=== PATIENT | female | born 1985 | race Two or more races ===

== ENCOUNTER 2017-07-16 13:01 | Emergency (ER) | payer OTHER ==
[2017-07-16 13:33] LABS: MUDS CUTOFF CONCENTRATIONS CUTOFF CONC BELOW:
--- NOTE | 2017-07-16 13:45 | ED Physician Documentation ---
PD HPI MHE - Stated complaint Stated Complaint: SI - Chief complaint Chief Complaint: MHE - History obtained from History obtained from: Patient - History of Present Illness Primary symptom: Suicide attempt, Self harm - OD, Off meds, Medical clearance Timing - onset: How many days ago (4) Contributing factors: Family, Off meds Similar symptoms before: Diagnosis (depression) Recently seen: Clinic (today) - Additional information Additional information: This 32 year old female with a prior history of depression and suicidal ideation took about 20 ibuprofen pills 4 days ago in a suicide attempt. She indicates that her is left on deployment and she was having an argument with her mother and the mother was telling her she was not a good daughter and she felt suicidal. She states that she is no longer actively suicidal but she has had hospitalization previously for suicide attempt and this was helpful for her. She indicates that her depression stems from a stillborn several years ago while her was on deployment. Her is on deployment again and will return in about 2 weeks. She has no other support here in [place] she has moved here in February and she does not have friends here. She does indicate that she has previously had a therapist that was very helpful and since moving here she has not been able to establish a therapist. Review of Systems Constitutional: reports: Chills. denies: Fever Eyes: denies: Decreased vision Ears: denies: Ear pain Nose: denies: Congestion Throat: denies: Sore throat Cardiac: denies: Chest pain / pressure, Palpitations Respiratory: denies: Dyspnea, Cough GI: reports: Abdominal Pain. denies: Nausea, Vomiting, Constipation, Diarrhea : denies: Dysuria, Frequency Skin: denies: Rash Musculoskeletal: denies: Neck pain, Back pain, Extremity pain PD PAST MEDICAL HISTORY - Present Medications Home Medications: Ambulatory Orders Medication Instructions Recorded Confirmed Bupropion HCl [Wellbutrin Xl] 07/16/17 Fluticasone [Flonase] 07/16/17 Folic Acid 07/16/17 Levothyroxine Sodium [Synthroid] 07/16/17 Naproxen Sodium 07/16/17 Ondansetron Odt [Zofran] 4 mg TL Q6H PRN #10 tablet 07/16/17 Sertraline HCl [Zoloft] 07/16/17 07/16/17 Sucralfate [Carafate] 1 gm PO ACHS #30 tablet 07/16/17 Topiramate 07/16/17 Topiramate [Trokendi Xr] 07/16/17 - Allergies Allergies/Adverse Reactions: Allergies Allergy/AdvReac Type Severity Reaction Status Date / Time ciprofloxacin Allergy Anaphylaxis Verified 07/16/17 13:20 shrimp AdvReac Edema Verified 07/16/17 13:20 PD ED PE NORMAL - Vitals Vital signs reviewed: Yes (hypertensive ) - General General: Alert and oriented X 3, No acute distress, Well developed/nourished - HEENT HEENT: Atraumatic, PERRL, EOMI, Ears normal, Moist mucous membranes, Pharynx benign, Dentition benign - Neck Neck: Supple, no meningeal sign, No bony TTP - Cardiac Cardiac: RRR, No murmur - Respiratory Respiratory: No respiratory distress, Clear bilaterally - Abdomen Abdomen: Soft, Non tender - Back Back: No CVA TTP, No spinal TTP - Derm Derm: Normal color, Warm and dry, No rash - Extremities Extremities: No deformity, No edema - Neuro Neuro: No motor deficit, No sensory deficit Eye Opening: Spontaneous Motor: Obeys Commands Verbal: Oriented GCS Score: 15 - Psych Psych: Normal mood, Normal affect Results - Vitals Vitals: Vital Signs - 24 hr 07/16/17 07/16/17 13:12 18:53 Temperature 36 C L Heart Rate 72 76 Respiratory 14 16 Rate Blood Pressure 139/94 H 110/76 O2 Saturation 100 96 Oxygen O2 Source Room air - Labs Labs: Laboratory Tests 07/16/17 07/16/17 07/16/17 13:10 13:50 13:50 WBC 10.1 RBC 5.21 Hgb 12.7 Hct 38.4 MCV 73.7 L MCH 24.3 L MCHC 33.0 RDW 16.5 H Plt Count 340 MPV 7.9 Neut # 5.6 Lymph # 3.7 H Nelson # 0.6 Eos # 0.2 Baso # 0.1 Absolute Nucleated RBC 0.00 Nucleated RBC % 0.0 Sodium 138 Potassium 4.0 Chloride 104 Carbon Dioxide 27 Anion Gap 7.0 BUN 12 Creatinine 0.9 Estimated GFR (MDRD) 72 L Glucose 97 Calcium 8.8 Total Bilirubin 0.6 AST 25 ALT 35 Alkaline Phosphatase 89 Total Protein 7.6 Albumin 3.8 Globulin 3.8 Albumin/Globulin Ratio 1.0 Lipase 29 Salicylates < 6.0 Urine Opiates Screen NEGATIVE Ur Oxycodone Screen NEGATIVE Urine Methadone Screen NEGATIVE Ur Propoxyphene Screen NEGATIVE Acetaminophen < 10 L Ur Barbiturates Screen NEGATIVE Ur Tricyclics Screen NEGATIVE Ur Phencyclidine Scrn NEGATIVE Ur Amphetamine Screen NEGATIVE U Methamphetamines Scrn NEGATIVE U Benzodiazepines Scrn NEGATIVE Urine Cocaine Screen NEGATIVE U Cannabinoids Screen NEGATIVE Ethyl Alcohol < 5.0 PD MEDICAL DECISION MAKING - ED course Complexity details: reviewed results, re-evaluated patient, considered differential, d/w patient ED course: 32-year-old female with a history of depression and suicidal ideation has no access to her therapist now and has become suicidal. She is not actively suicidal now but is interested in voluntary hospitalization. This has been helpful for her in the past. She has stopped taking all of her medications. structural steel worker helper is consulted in the case for bed placement. After evaluation the psychosocial rehabilitation counselor and the patient do not feel hospitalization is needed but she would benefit from Psychiatric evaluation via tele-psych for medication adjustment. Follow up counselling referral is made and referral for psychiatrist is pending. Departure - Departure Clinical Impression: Depression Qualifiers: Depression Type: unspecified Qualified Code(s): F32.9 - Major depressive disorder, single episode, unspecified Gastritis Qualifiers: Gastritis type: unspecified gastritis Chronicity: acute Gastritis bleeding: without bleeding Qualified Code(s): K29.00 - Acute gastritis without bleeding Condition: Stable Instructions: ED Depression, ED Gastritis Follow-Up: Shy Raymundo MD [Primary Care Provider] - Prescriptions: Ondansetron Odt [Zofran] 4 mg TL Q6H PRN #10 tablet PRN Reason: Nausea / Vomiting Sucralfate [Carafate] 1 gm PO ACHS #30 tablet Comments: Follow up with your primary care doctor for referral to a psychiatrist and with the counsellor as outlined by the psychosocial rehabilitation counselor.
[2017-07-16 13:46] LABS: AMPHETAMINE SCREEN,URINE NEGATIVE (NEGATIVE); BENZODIAZEPINES SCREEN, URINE NEGATIVE (NEGATIVE); COCAINE SCREEN URINE NEGATIVE (NEGATIVE); METHADONE SCREEN, URINE NEGATIVE (NEGATIVE); METHAMPHETAMINES SCREEN, URINE NEGATIVE (NEGATIVE); OPIATE SCREEN, URINE NEGATIVE (NEGATIVE); OXYCODONE SCREEN, URINE NEGATIVE (NEGATIVE); PROPOXYPHENE SCREEN, URINE NEGATIVE (NEGATIVE); TRICYCLIC ANTIDEPRESSANT,URINE NEGATIVE (NEGATIVE)
[2017-07-16 13:59] LABS: BASOPHILS # (AUTO) 0.1 10^3/uL (0.0-0.1); EOSINOPHILS # (AUTO) 0.2 10^3/uL (0.0-0.7); EOSINOPHILS % (AUTO) 1.7 %; HGB - HEMOGLOBIN 12.7 g/dL (12.0-16.0); LYMPHOCYTES # (AUTO) 3.7 10^3/uL (1.5-3.5); LYMPHOCYTES % (AUTO) 36.6 %; MEAN CORPUSCULAR HEMOGLOBIN 24.3 pg (27.0-31.0); MEAN CORPUSCULAR VOLUME 73.7 fL (81.0-99.0); MEAN PLATELET VOLUME 7.9 fL (7.9-10.8); MONOCYTES # (AUTO) 0.6 10^3/uL (0.0-1.0); MONOCYTES % (AUTO) 5.5 %; NEUTROPHILS # (AUTO) 5.6 10^3/uL (1.5-6.6); NEUTROPHILS % (AUTO) 55.2 %; PLT - PLATELET COUNT 340 10^3/uL (130-450); RED BLOOD COUNT 5.21 10^6/uL (4.20-5.40); RED CELL DISTRIBUTION WIDTH 16.5 % (12.0-15.0); WHITE BLOOD COUNT 10.1 x10^3/uL (4.8-10.8)
[2017-07-16 14:15] LABS: ALBUMIN 3.8 g/dL (3.2-5.5); ALKALINE PHOSPHATASE 89 IU/L (42-121); ALT ALANINE AMINOTRANSFERASE 35 IU/L (10-60); AST ASPARTATE AMINOTRANSFERASE 25 IU/L (10-42); BILIRUBIN,TOTAL 0.6 mg/dL (0.2-1.0); BUN - BLOOD UREA NITROGEN 12 mg/dL (6-20); CALCIUM 8.8 mg/dL (8.5-10.3); CARBON DIOXIDE - CO2 27 mmol/L (21-32); CHLORIDE 104 mmol/L (101-111); CREATININE 0.9 mg/dL (0.4-1.0); GFR - MDRD 72 (>89); GLUCOSE 97 mg/dL (70-100); LIPASE 29 U/L (22-51); SALICYLATE < 6.0 mg/dL; SODIUM 138 mmol/L (135-145); TOTAL PROTEIN 7.6 g/dL (6.7-8.2)
[2017-07-16 14:16] LABS: ACETAMINOPHEN < 10 ug/mL (10-30)
[2017-07-16] MEDS ORDERED: MAG HYDROX/AL HYDROX/SIMETH 30 ML UDC PO STA (16:11)
[2017-07-16] MEDS ORDERED: ONDANSETRON ODT 4 MG TABLET TL STA (17:16)
[2017-07-16] MEDS ORDERED: SUCRALFATE 1 GM/10 ML UDC PO STA (19:31)
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
--- NOTE | 2017-07-16 22:49 | ED Physician Documentation ---
ED Addendum - Addendum Addendum: 07/16/17 22:46 The patient had been felt to be lower risk for self-harm by social media senior associate but had recommended tell a psych consult. The tell a psych consult however did feel the patient to be at high risk for self-harm given several factors (read their consult note). The patient is worried about her dogs at home and would like to go home and feels she does not need hospitalization. Given this I felt she was involuntary and had the nurse call the [facility] to dispatch the [facility]. However they said that even though the patient was involuntary, she was not actively suicidal and so therefore they refused to dispatch the [facility] at this point. I talked with the other emergency physician, Dr. Tesfaye now, and we feel it is difficult to supersede the psychiatrist opinion who has done a careful interview and evaluation. Therefore we would have the patient stay overnight involuntarily to be evaluated by social work in the morning. It does seem unfortunate that the [facility] would not dispatch the [facility] at this point and might need to be discussed administratively.
[2017-07-16] MEDS ORDERED: LORazepam 0.5 MG TABLET PO STA (23:22)
--- NOTE | 2017-07-17 07:08 | ED Physician Documentation ---
History of Present Illness - Stated complaint Stated Complaint: SI - Chief complaint Chief Complaint: MHE PD PAST MEDICAL HISTORY - Past Medical History Neuro: Headache/migraine, Head injury (Pt said she had a head injury following a shelf falling on her at work. 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 - Present Medications Home Medications: Ambulatory Orders Medication Instructions Recorded Confirmed Bupropion HCl [Wellbutrin Xl] 07/16/17 Fluticasone [Flonase] 07/16/17 Folic Acid 07/16/17 Levothyroxine Sodium [Synthroid] 07/16/17 Naproxen Sodium 07/16/17 Ondansetron Odt [Zofran] 4 mg TL Q6H PRN #10 tablet 07/16/17 Sertraline HCl [Zoloft] 07/16/17 07/16/17 Sucralfate [Carafate] 1 gm PO ACHS #30 tablet 07/16/17 Topiramate 07/16/17 Topiramate [Trokendi Xr] 07/16/17 - Allergies Allergies/Adverse Reactions: Allergies Allergy/AdvReac Type Severity Reaction Status Date / Time ciprofloxacin Allergy Anaphylaxis Verified 07/16/17 13:20 shrimp AdvReac Edema Verified 07/16/17 13:20 - Social History Does the pt smoke?: No Smoking Status: Never smoker Results - Vitals Vitals: Vital Signs - 24 hr 07/16/17 07/16/17 07/16/17 13:12 18:53 23:34 Temperature 36 C L 36.2 C L Heart Rate 72 76 71 Respiratory 14 16 17 Rate Blood Pressure 139/94 H 110/76 119/86 H O2 Saturation 100 96 97 07/17/17 08:04 Temperature 36.6 C Heart Rate 86 Respiratory 14 Rate Blood Pressure 117/84 H O2 Saturation 96 Oxygen O2 Source Room air - Labs Labs: Laboratory Tests 07/16/17 07/16/17 07/16/17 13:10 13:50 13:50 WBC 10.1 RBC 5.21 Hgb 12.7 Hct 38.4 MCV 73.7 L MCH 24.3 L MCHC 33.0 RDW 16.5 H Plt Count 340 MPV 7.9 Neut # 5.6 Lymph # 3.7 H Osborne # 0.6 Eos # 0.2 Baso # 0.1 Absolute Nucleated RBC 0.00 Nucleated RBC % 0.0 Sodium 138 Potassium 4.0 Chloride 104 Carbon Dioxide 27 Anion Gap 7.0 BUN 12 Creatinine 0.9 Estimated GFR (MDRD) 72 L Glucose 97 Calcium 8.8 Total Bilirubin 0.6 AST 25 ALT 35 Alkaline Phosphatase 89 Total Protein 7.6 Albumin 3.8 Globulin 3.8 Albumin/Globulin Ratio 1.0 Lipase 29 Salicylates < 6.0 Urine Opiates Screen NEGATIVE Ur Oxycodone Screen NEGATIVE Urine Methadone Screen NEGATIVE Ur Propoxyphene Screen NEGATIVE Acetaminophen < 10 L Ur Barbiturates Screen NEGATIVE Ur Tricyclics Screen NEGATIVE Ur Phencyclidine Scrn NEGATIVE Ur Amphetamine Screen NEGATIVE U Methamphetamines Scrn NEGATIVE U Benzodiazepines Scrn NEGATIVE Urine Cocaine Screen NEGATIVE U Cannabinoids Screen NEGATIVE Ethyl Alcohol < 5.0 PD MEDICAL DECISION MAKING - ED course ED course: duplicate note Departure - Departure Clinical Impression: Depression Qualifiers: Depression Type: unspecified Qualified Code(s): F32.9 - Major depressive disorder, single episode, unspecified Gastritis Qualifiers: Gastritis type: unspecified gastritis Chronicity: acute Gastritis bleeding: without bleeding Qualified Code(s): K29.00 - Acute gastritis without bleeding Condition: Stable Instructions: ED Depression, ED Gastritis Follow-Up: Shy Raymundo MD [Primary Care Provider] - Prescriptions: Ondansetron Odt [Zofran] 4 mg TL Q6H PRN #10 tablet PRN Reason: Nausea / Vomiting Sucralfate [Carafate] 1 gm PO ACHS #30 tablet Comments: Follow up with your primary care doctor for referral to a psychiatrist and with the counsellor as outlined by the criminal justice social worker.
[2017-07-17] MEDS ORDERED: buPROPion XL 150 MG TABLET PO STA (08:19)
--- NOTE | 2017-07-17 08:19 | ED Physician Documentation ---
History of Present Illness - Stated complaint Stated Complaint: SI - Chief complaint Chief Complaint: MHE PD PAST MEDICAL HISTORY - Past Medical History Neuro: Headache/migraine, Head injury (Pt said she had a head injury following a shelf falling on her at work. 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 - Present Medications Home Medications: Ambulatory Orders Medication Instructions Recorded Confirmed Bupropion HCl [Wellbutrin Xl] 07/16/17 Fluticasone [Flonase] 07/16/17 Folic Acid 07/16/17 Levothyroxine Sodium [Synthroid] 07/16/17 Naproxen Sodium 07/16/17 Sertraline HCl [Zoloft] 07/16/17 07/16/17 Sucralfate [Carafate] 1 gm PO ACHS #30 tablet 07/16/17 Topiramate 07/16/17 Topiramate [Trokendi Xr] 07/16/17 Omeprazole [PriLOSEC] 20 mg PO DAILY #30 capsule 07/17/17 - Allergies Allergies/Adverse Reactions: Allergies Allergy/AdvReac Type Severity Reaction Status Date / Time ciprofloxacin Allergy Anaphylaxis Verified 07/16/17 13:20 shrimp AdvReac Edema Verified 07/16/17 13:20 - Social History Does the pt smoke?: No Smoking Status: Never smoker Results - Vitals Vitals: Vital Signs - 24 hr 07/16/17 07/17/17 07/17/17 23:34 08:04 19:46 Temperature 36.2 C L 36.6 C 36.2 C L Heart Rate 71 86 75 Respiratory 17 14 17 Rate Blood Pressure 119/86 H 117/84 H 123/85 H O2 Saturation 97 96 99 Oxygen O2 Source Room air - Labs Labs: Laboratory Tests 07/16/17 07/16/17 07/16/17 13:10 13:50 13:50 WBC 10.1 RBC 5.21 Hgb 12.7 Hct 38.4 MCV 73.7 L MCH 24.3 L MCHC 33.0 RDW 16.5 H Plt Count 340 MPV 7.9 Neut # 5.6 Lymph # 3.7 H Laurens # 0.6 Eos # 0.2 Baso # 0.1 Absolute Nucleated RBC 0.00 Nucleated RBC % 0.0 Sodium 138 Potassium 4.0 Chloride 104 Carbon Dioxide 27 Anion Gap 7.0 BUN 12 Creatinine 0.9 Estimated GFR (MDRD) 72 L Glucose 97 Calcium 8.8 Total Bilirubin 0.6 AST 25 ALT 35 Alkaline Phosphatase 89 Total Protein 7.6 Albumin 3.8 Globulin 3.8 Albumin/Globulin Ratio 1.0 Lipase 29 Urine Color Urine Clarity Urine pH Ur Specific [place] Urine Protein Urine Glucose (UA) Urine Ketones Urine Occult Blood Urine Nitrite Urine Bilirubin Urine Urobilinogen Ur Leukocyte Esterase Urine RBC Urine WBC Ur Squamous Epith Cells Urine Bacteria Urine Mucus Ur Microscopic Review Urine Culture Comments Urine HCG, Qual Salicylates < 6.0 Urine Opiates Screen NEGATIVE Ur Oxycodone Screen NEGATIVE Urine Methadone Screen NEGATIVE Ur Propoxyphene Screen NEGATIVE Acetaminophen < 10 L Ur Barbiturates Screen NEGATIVE Ur Tricyclics Screen NEGATIVE Ur Phencyclidine Scrn NEGATIVE Ur Amphetamine Screen NEGATIVE U Methamphetamines Scrn NEGATIVE U Benzodiazepines Scrn NEGATIVE Urine Cocaine Screen NEGATIVE U Cannabinoids Screen NEGATIVE Ethyl Alcohol < 5.0 07/17/17 08:30 WBC RBC Hgb Hct MCV MCH MCHC RDW Plt Count MPV Neut # Lymph # Laurens # Eos # Baso # Absolute Nucleated RBC Nucleated RBC % Sodium Potassium Chloride Carbon Dioxide Anion Gap BUN Creatinine Estimated GFR (MDRD) Glucose Calcium Total Bilirubin AST ALT Alkaline Phosphatase Total Protein Albumin Globulin Albumin/Globulin Ratio Lipase Urine Color YELLOW Urine Clarity CLEAR Urine pH 6.0 Ur Specific [place] >=1.030 H Urine Protein NEGATIVE Urine Glucose (UA) NEGATIVE Urine Ketones NEGATIVE Urine Occult Blood MODERATE H Urine Nitrite NEGATIVE Urine Bilirubin NEGATIVE Urine Urobilinogen 0.2 (NORMAL) Ur Leukocyte Esterase NEGATIVE Urine RBC 0-5 Urine WBC 0-3 Ur Squamous Epith Cells FEW Squamous Urine Bacteria Few Urine Mucus Marked Strands Ur Microscopic Review INDICATED Urine Culture Comments NOT INDICATED Urine HCG, Qual NEGATIVE Salicylates Urine Opiates Screen Ur Oxycodone Screen Urine Methadone Screen Ur Propoxyphene Screen Acetaminophen Ur Barbiturates Screen Ur Tricyclics Screen Ur Phencyclidine Scrn Ur Amphetamine Screen U Methamphetamines Scrn U Benzodiazepines Scrn Urine Cocaine Screen U Cannabinoids Screen Ethyl Alcohol PD MEDICAL DECISION MAKING - ED course ED course: assumed care 7 AM 07/17/17 32 female seen yesterday after being sent from clinic for mental health eval after an intentional OD she has a hx of prior OD as well per pt and report she intentionally OD'ed on 20 ibuprofen several days ago, did not tell anyone, presented to clinic with gastritis sx and this was discovered and she was sent to ED pt was medically cleared by EMP yesterday seen by MARCELINO who felt pt was safe to dc a telepscyh eval was also done for med rec and telepsych felt pt needed inpt mental health slot shift supervisor called [facility] to dispatch [facility] but [facility] declined and deferred to SW in AM again per turnover pt is worried about her dogs but voluntary I went to see pt at 745 she was sleeping but easily awakened no complaints at this time RRR CTAB pt tells me she does not want to go to inpt care because she has dogs to take care of will order AM synthroid and also wellbutrin per telepsych rec awaiting rpt SW eval for placement SW saw pt and does not feel she needs inpt care despite telepsych rec - see SW note turned care of pt over to Dr Burgos at noon Departure - Departure Disposition: 01 Home, Self Care Clinical Impression: Attempted suicide Depression Qualifiers: Depression Type: unspecified Qualified Code(s): F32.9 - Major depressive disorder, single episode, unspecified Gastritis Qualifiers: Gastritis type: unspecified gastritis Chronicity: acute Gastritis bleeding: without bleeding Qualified Code(s): K29.00 - Acute gastritis without bleeding Condition: Stable Instructions: ED Depression, ED Gastritis Follow-Up: Shy Raymundo MD [Primary Care Provider] - Prescriptions: Omeprazole [PriLOSEC] 20 mg PO DAILY #30 capsule Sucralfate [Carafate] 1 gm PO ACHS #30 tablet Comments: Follow up with your primary care doctor for referral to a psychiatrist and with the counsellor as outlined by the certified social workers in health care. Your therapy appointment is Saturday and your psychiatry appointment is August 07. Your should be home by 06 to take care of you. Return if you worsen. Crisis Line and is available to talk to someone [email or web address] is also available to chat with someone online if you prefer. There are also many resources on this website and apps for your phone to help with your mental health You can also text the word START to [phone] to chat with someome via text. Discharge Date/Time: 07/17/17 20:22
[2017-07-17] MEDS ORDERED: LEVOTHYROXINE 25 MCG TABLET PO STA (08:20)
[2017-07-17 09:22] LABS: BILIRUBIN,URINE NEGATIVE (NEGATIVE); GLUCOSE, URINE (UA) NEGATIVE (NEGATIVE); KETONES,URINE (UA) NEGATIVE (NEGATIVE); LEUKOCYTE ESTERASE, URINE NEGATIVE (NEGATIVE); NITRITE,URINE NEGATIVE (NEGATIVE); OCCULT BLOOD,URINE MODERATE (NEGATIVE); PROTEIN,URINE NEGATIVE (NEGATIVE); UROBILINOGEN,URINE 0.2 (NORMAL) E.U./dL (NORMAL)
[2017-07-17 09:25] LABS: CLARITY,URINE CLEAR (CLEAR); HCG UR QUAL NEGATIVE
[2017-07-17 09:36] LABS: BACTERIA,URINE Few /HPF (None Seen); MUCUS,URINE Marked Strands; RBC,URINE 0-5 /HPF (0-5); SQUAMOUS EPITHELIAL CELL,UR FEW Squamous (<= Few)
--- NOTE | 2017-07-17 15:42 | ED Physician Documentation ---
ED Addendum - Addendum Addendum: Patient was seen and examined by myself in the emergency department. She is 4 days status post an intentional overdose. She has had worsening symptoms of depression over the past few weeks. States she is not suicidal now but has had multiple overdose attempts in the past including several that were. She does have a history of poor impulse control. Has not seen a psychiatrist or a counselor for the past 6 months and she moved here from [place]. She states that her safety plan is to just not read the text messages from her mother. She also states that she would reach out to friends and family back in [place]. 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 She does not want to go inpatient to the hospital. A psychiatry appointment is not able to be obtained for her until August 07 and a counseling appointment is not until July 20. She has no friends or family here. No local social support. No support to keep her safe in the middle of the night. I am concerned given her history of impulsive behavior and multiple overdoses in the past in addition to her open access to medications at home currently as well as a gun being present in the house without anyone able to be with her until July 28. Therefore I contacted ROBIN who dispensed the [facility], Nenita who will come and evaluate the patient. Nenita [facility] evaluated the patient and invol hold was considered, but her is able to fly home tonight to be with her at home. Her arranged a friend to stay with her until her arrives home. She has a solid safety plan in place. Resources given. Will follow up with a therapist on Saturday. and patient comfortable with plan. Departure - Departure Disposition: Home, Self Care Clinical Impression: Attempted suicide Depression Qualifiers: Depression Type: unspecified Qualified Code(s): F32.9 - Major depressive disorder, single episode, unspecified Gastritis Qualifiers: Gastritis type: unspecified gastritis Chronicity: acute Gastritis bleeding: without bleeding Qualified Code(s): K29.00 - Acute gastritis without bleeding Condition: Stable Instructions: ED Depression, ED Gastritis Follow-Up: Shy Raymundo MD [Primary Care Provider] - Prescriptions: Omeprazole [PriLOSEC] 20 mg PO DAILY #30 capsule Sucralfate [Carafate] 1 gm PO ACHS #30 tablet Comments: Follow up with your primary care doctor for referral to a psychiatrist and with the counsellor as outlined by the director social welfare. Your therapy appointment is Saturday and your psychiatry appointment is August 07. Your should be home by 629 to take care of you. Return if you worsen. Crisis Line and is available to talk to someone [email or web address] is also available to chat with someone online if you prefer. There are also many resources on this website and apps for your phone to help with your mental health You can also text the word START to [phone] to chat with someome via text. Discharge Date/Time: 07/17/17 20:22
[2017-07-17] MEDS ORDERED: ACETAMINOPHEN 500 MG TABLET PO STA (19:39)
[2017-07-17 19:47] VITALS: BP 123/85
== END 2017-07-17 20:22 | disposition home or self-care (01) ==
LOC: ED 13:01
DX: F32.9 Major depressive disorder, single episode, unspecified (principal); K29.00 Acute gastritis without bleeding; T43.296A Underdosing of other antidepressants, initial encounter; T43.226A Underdosing of selective serotonin reuptake inhibitors, initial encounter; Z91.128 Patient's intentional underdosing of medication regimen for other reason; T14.91XA Suicide attempt, initial encounter
CPT/HCPCS: 36415; 80053; 80306; 80307; 80320; 80329; 81001; 81025; 83690; 85025; 99283; 99284; A9270; G0427; Q0162; Q3014; 81003; 87086

== ENCOUNTER 2017-08-21 12:16 | Emergency (ER) | payer OTHER ==
[2017-08-21 12:50] LABS: BASOPHILS # (AUTO) 0.1 10^3/uL (0.0-0.1); BASOPHILS % (AUTO) 0.6 %; EOSINOPHILS # (AUTO) 0.2 10^3/uL (0.0-0.7); EOSINOPHILS % (AUTO) 1.6 %; HGB - HEMOGLOBIN 12.4 g/dL (12.0-16.0); LYMPHOCYTES # (AUTO) 3.4 10^3/uL (1.5-3.5); LYMPHOCYTES % (AUTO) 32.6 %; MEAN CORPUSCULAR HEMOGLOBIN 23.9 pg (27.0-31.0); MEAN CORPUSCULAR VOLUME 74.7 fL (81.0-99.0); MEAN PLATELET VOLUME 7.3 fL (7.9-10.8); MONOCYTES # (AUTO) 0.3 10^3/uL (0.0-1.0); MONOCYTES % (AUTO) 3.2 %; NEUTROPHILS # (AUTO) 6.4 10^3/uL (1.5-6.6); PLT - PLATELET COUNT 409 10^3/uL (130-450); RED BLOOD COUNT 5.21 10^6/uL (4.20-5.40); RED CELL DISTRIBUTION WIDTH 16.5 % (12.0-15.0); WHITE BLOOD COUNT 10.3 x10^3/uL (4.8-10.8)
[2017-08-21 13:03] LABS: ALBUMIN 3.6 g/dL (3.2-5.5); ALBUMIN/GLOBULIN RATIO 0.8 (1.0-2.2); BILIRUBIN,TOTAL 0.3 mg/dL (0.2-1.0); CALCIUM 8.8 mg/dL (8.5-10.3); CREATININE 1.1 mg/dL (0.4-1.0); TOTAL PROTEIN 7.9 g/dL (6.7-8.2)
[2017-08-21 13:44] LABS: BILIRUBIN,URINE NEGATIVE (NEGATIVE); GLUCOSE, URINE (UA) NEGATIVE (NEGATIVE); KETONES,URINE (UA) NEGATIVE (NEGATIVE); LEUKOCYTE ESTERASE, URINE TRACE (NEGATIVE); NITRITE,URINE NEGATIVE (NEGATIVE); OCCULT BLOOD,URINE NEGATIVE (NEGATIVE); PH,URINE 7.5 PH (5.0-7.5); PROTEIN,URINE NEGATIVE (NEGATIVE); UROBILINOGEN,URINE 0.2 (NORMAL) E.U./dL (NORMAL)
[2017-08-21 13:46] LABS: CLARITY,URINE CLEAR (CLEAR)
[2017-08-21 13:55] LABS: RBC,URINE 0-5 /HPF (0-5); SQUAMOUS EPITHELIAL CELL,UR MOD Squamous (<= Few)
[2017-08-21 13:56] LABS: BACTERIA,URINE Moderate /HPF (None Seen)
[2017-08-21] MEDS ORDERED: IBUPROFEN 800 MG TABLET PO STA (13:59)
--- NOTE | 2017-08-21 14:01 | ED Physician Documentation ---
PD HPI CHEST PAIN - Stated complaint Stated Complaint: LT UPPER SIDE PX - Chief complaint Chief Complaint: Abd Pain - History obtained from History obtained from: Patient - History of Present Illness Timing - onset: Other (For the last 3 days she has had atraumatic pain over the left upper abdomen and left lower chest wall which is worse with deep breathing and eating and twisting motions. It is associated with constipation, last bowel movement yesterday and small. No urinary complaints or nausea. She is not short of breath. She denies any cough. No recent travel.) Review of Systems Ten Systems: 10 systems reviewed and negative Constitutional: denies: Fever, Chills Throat: denies: Sore throat Cardiac: reports: Chest pain / pressure. denies: Palpitations Respiratory: denies: Dyspnea, Cough GI: reports: Abdominal Pain. denies: Nausea, Vomiting PD PAST MEDICAL HISTORY - Past Medical History Past Medical History: No Neuro: Migraines Psych: Depression, Anxiety, Post traumatic stress disorder, Other (Psychosis) - Present Medications Home Medications: Ambulatory Orders Medication Instructions Recorded Confirmed Bupropion HCl [Wellbutrin Xl] 07/16/17 Fluticasone [Flonase] 07/16/17 Folic Acid 07/16/17 Levothyroxine Sodium [Synthroid] 07/16/17 Naproxen Sodium 07/16/17 Sertraline HCl [Zoloft] 07/16/17 07/16/17 Sucralfate [Carafate] 1 gm PO ACHS #30 tablet 07/16/17 Topiramate 07/16/17 Topiramate [Trokendi Xr] 07/16/17 Omeprazole [PriLOSEC] 20 mg PO DAILY #30 capsule 07/17/17 Meloxicam [Mobic] 7.5 mg PO BIDWM PRN #15 tablet 08/21/17 - Allergies Allergies/Adverse Reactions: Allergies Allergy/AdvReac Type Severity Reaction Status Date / Time ciprofloxacin Allergy Anaphylaxis Verified 08/21/17 12:30 shrimp AdvReac Edema Verified 08/21/17 12:30 - Social History Does the pt smoke?: No Smoking Status: Never smoker PD ED PE NORMAL - Vitals Vital signs reviewed: Yes - General General: Alert and oriented X 3, No acute distress - HEENT HEENT: PERRL, EOMI - Neck Neck: Supple, no meningeal sign, No bony TTP - Cardiac Cardiac: RRR, No murmur - Respiratory Respiratory: No respiratory distress, Clear bilaterally - Abdomen Abdomen: Other (There is no abdominal tenderness per se, she is tender over the left lateral ribs low down which reproduces her pain and also the anterior low left ribs. There is no CVA tenderness.) - Extremities Extremities: No edema, No calf tenderness / cord - Neuro Neuro: Alert and oriented X 3, Normal speech Results - Vitals Vitals: Vital Signs - 24 hr 08/21/17 12:25 Temperature 36.3 C L Heart Rate 73 Respiratory 16 Rate Blood Pressure 110/60 O2 Saturation 99 Oxygen O2 Source Room air - Labs Labs: Laboratory Tests 08/21/17 08/21/17 08/21/17 12:30 12:40 12:40 WBC 10.3 RBC 5.21 Hgb 12.4 Hct 38.9 MCV 74.7 L MCH 23.9 L MCHC 32.0 RDW 16.5 H Plt Count 409 MPV 7.3 L Neut # (Auto) 6.4 Lymph # (Auto) 3.4 [place] # (Auto) 0.3 Eos # (Auto) 0.2 Baso # (Auto) 0.1 Absolute Nucleated RBC 0.01 Nucleated RBC % 0.1 Sodium 134 L Potassium 3.6 Chloride 102 Carbon Dioxide 26 Anion Gap 6.0 BUN 12 Creatinine 1.1 H Estimated GFR (MDRD) 57 L Glucose 140 H Calcium 8.8 Total Bilirubin 0.3 AST 24 ALT 31 Alkaline Phosphatase 104 Total Protein 7.9 Albumin 3.6 Globulin 4.3 H Albumin/Globulin Ratio 0.8 L Lipase 26 Urine Color YELLOW Urine Clarity CLEAR Urine pH 7.5 Ur Specific [place] 1.015 Urine Protein NEGATIVE Urine Glucose (UA) NEGATIVE Urine Ketones NEGATIVE Urine Occult Blood NEGATIVE Urine Nitrite NEGATIVE Urine Bilirubin NEGATIVE Urine Urobilinogen 0.2 (NORMAL) Ur Leukocyte Esterase TRACE H Urine RBC 0-5 Urine WBC 6-10 H Ur Squamous Epith Cells MOD Squamous H Urine Bacteria Moderate H Ur Microscopic Review INDICATED Urine Culture Comments NOT INDICATED - Rads (name of study) 2v chest Radiology: EMP read contemporaneously (normal) PD MEDICAL DECISION MAKING - ED course ED course: 32-year-old woman with left-sided pain that based on examination seems like intercostal muscle strain. Diagnostics in the emergency department were negative. - Sepsis Event Vital Signs: Vital Signs - 24 hr 08/21/17 12:25 Temperature 36.3 C L Heart Rate 73 Respiratory 16 Rate Blood Pressure 110/60 O2 Saturation 99 Oxygen O2 Source Room air Departure - Departure Disposition: 01 Home, Self Care Clinical Impression: Chest wall pain Tear of intercostal muscle Qualifiers: Encounter type: initial encounter Qualified Code(s): S29.019A - Strain of muscle and tendon of unspecified wall of thorax, initial encounter Condition: Good Record reviewed to determine appropriate education?: Yes Instructions: ED Strain Chest Wall Prescriptions: Meloxicam [Mobic] 7.5 mg PO BIDWM PRN #15 tablet PRN Reason: Pain Comments: Call your doctor to arrange a follow-up appointment, make the next available appointment. In the interim, return anytime if worse or if new symptoms develop.
--- NOTE | 2017-08-21 15:24 | XRAY Report ---
Procedure Date: 08/21/2017 Accession Number: [id number] / [id number] Procedure: XR - Chest 2 View X-Ray CPT Code: 25758 FULL RESULT: EXAM: Chest 2 View X-Ray DATE: 08/21/2017 2:12 PM CLINICAL HISTORY: L chest pain COMPARISON: None TECHNIQUE: 2 view chest FINDINGS: The cardiac silhouette is within normal limits. The lungs are clear. No effusion or pneumothorax is present. IMPRESSION: Normal chest.
[2017-08-21 15:35] VITALS: BP 123/81
== END 2017-08-21 15:55 | disposition home or self-care (01) ==
LOC: ED 12:16
DX: S29.019A Strain of muscle and tendon of unspecified wall of thorax, initial encounter (principal); X58.XXXA Exposure to other specified factors, initial encounter; R07.89 Other chest pain
CPT/HCPCS: 36415; 71046; 80053; 81001; 83690; 85025; 99283; A9270; 81003; 87086

== ENCOUNTER 2017-11-18 13:04 | Outpatient (CLI) | payer OTHER | END 2017-11-18 13:05 | disposition home or self-care (01) | LOC: SC 13:04 | PROVIDERS: ATTEND Internal Medicine Pulmonary Disease | DX: G47.33 Obstructive sleep apnea (adult) (pediatric) (principal); G47.61 Periodic limb movement disorder; G25.81 Restless legs syndrome; G47.00 Insomnia, unspecified | CPT/HCPCS: 99204; 99212 ==

== ENCOUNTER 2018-01-02 20:24 | Outpatient (CLI) | payer OTHER | END 2018-01-02 20:25 | disposition home or self-care (01) | LOC: SC 20:24 | PROVIDERS: ATTEND Internal Medicine Pulmonary Disease | DX: G47.61 Periodic limb movement disorder (principal) | CPT/HCPCS: 95810 ==

== ENCOUNTER 2018-03-10 13:55 | Outpatient (CLI) | payer OTHER | END 2018-03-10 13:56 | disposition home or self-care (01) | LOC: SC 13:55 | PROVIDERS: ATTEND Internal Medicine Pulmonary Disease | DX: G47.33 Obstructive sleep apnea (adult) (pediatric) (principal) | CPT/HCPCS: 99212; 99213 ==

== ENCOUNTER 2018-09-03 12:45 | Emergency (ER) | payer OTHER ==
[2018-09-03 13:10] LABS: BASOPHILS % (AUTO) 0.4 %; EOSINOPHILS # (AUTO) 0.3 10^3/uL (0.0-0.7); EOSINOPHILS % (AUTO) 2.5 %; HGB - HEMOGLOBIN 11.7 g/dL (12.0-16.0); LYMPHOCYTES # (AUTO) 3.7 10^3/uL (1.5-3.5); MEAN CORPUSCULAR HGB CONC 29.3 g/dL (32.0-36.0); MEAN CORPUSCULAR VOLUME 71.6 fL (81.0-99.0); MEAN PLATELET VOLUME 9.5 fL (7.9-10.8); MONOCYTES # (AUTO) 0.6 10^3/uL (0.0-1.0); MONOCYTES % (AUTO) 5.6 %; NEUTROPHILS # (AUTO) 6.3 10^3/uL (1.5-6.6); PLT - PLATELET COUNT 465 10^3/uL (130-450); RED BLOOD COUNT 5.57 10^6/uL (4.20-5.40)
[2018-09-03 13:25] LABS: ACETAMINOPHEN < 10 ug/mL (10-30); ALBUMIN 3.8 g/dL (3.2-5.5); ALBUMIN/GLOBULIN RATIO 0.8 (1.0-2.2); ALKALINE PHOSPHATASE 101 IU/L (42-121); ALT ALANINE AMINOTRANSFERASE 28 IU/L (10-60); AST ASPARTATE AMINOTRANSFERASE 19 IU/L (10-42); BILIRUBIN,TOTAL 0.4 mg/dL (0.2-1.0); BUN - BLOOD UREA NITROGEN 9 mg/dL (6-20); CALCIUM 8.7 mg/dL (8.5-10.3); CARBON DIOXIDE - CO2 25 mmol/L (21-32); CHLORIDE 101 mmol/L (101-111); CREATININE 0.6 mg/dL (0.4-1.0); GFR - MDRD 114 (>89); GLUCOSE 113 mg/dL (70-100); LIPASE 33 U/L (22-51); SALICYLATE < 6.0 mg/dL; SODIUM 136 mmol/L (135-145); TOTAL PROTEIN 8.3 g/dL (6.7-8.2)
--- NOTE | 2018-09-03 13:25 | ED Physician Documentation ---
PD HPI MHE - Stated complaint Stated Complaint: MHE - Chief complaint Chief Complaint: MHE - History obtained from History obtained from: Patient - History of Present Illness Primary symptom: Suicidal ideation Timing - onset: How many days ago (4-5) Pain level max: 0 Pain level now: 0 Contributing factors: Family Similar symptoms before: Diagnosis (Depression) Recently seen: Not recently seen - Additional information Additional information: 33-year-old female presents to the emergency department [place]. She states she has been feeling depressed and vaguely suicidal for the past 4 to 5 days. She states that her is currently deployed. She has 3 dogs at home. She states that she has had inpatient psychiatric hospitalizations in the past but does not know if she requires one currently. She states she does not have a plan to harm herself. She states she is also dealing with hormonal issues and had her "hormones tested" and they were found to be low. She was not started on any medications. She was being seen at [facility] and had been on Zoloft and Wellbutrin in the past. She did not feel like these medications were helping her Review of Systems Ten Systems: 10 systems reviewed and negative Constitutional: denies: Fever, Chills Respiratory: denies: Cough GI: denies: Nausea, Vomiting, Diarrhea : denies: Now EGA Skin: denies: Rash Musculoskeletal: denies: Neck pain, Back pain Neurologic: denies: Headache PD PAST MEDICAL HISTORY - Past Medical History Past Medical History: Yes Neuro: Migraines Psych: Depression, Anxiety, Post traumatic stress disorder, Other - Present Medications Home Medications: Ambulatory Orders Medication Instructions Recorded Confirmed Fluticasone [Flonase] 07/16/17 Omeprazole [PriLOSEC] 20 mg PO DAILY #30 capsule 07/17/17 - Allergies Allergies/Adverse Reactions: Allergies Allergy/AdvReac Type Severity Reaction Status Date / Time ciprofloxacin Allergy Anaphylaxis Verified 09/03/18 12:56 shrimp AdvReac Edema Verified 09/03/18 12:56 - Living Situation Living Situation: reports: With family Living Arrangement: reports: At home - Social History Does the pt smoke?: No Smoking Status: Never smoker PD ED PE NORMAL - Vitals Vital signs reviewed: Yes - General General: Alert and oriented X 3, No acute distress, Well developed/nourished - HEENT HEENT: PERRL, Moist mucous membranes - Neck Neck: Supple, no meningeal sign - Cardiac Cardiac: RRR, Strong equal pulses - Respiratory Respiratory: No respiratory distress, Clear bilaterally - Abdomen Abdomen: Soft, Non tender, Non distended - Derm Derm: Warm and dry - Extremities Extremities: No edema, No calf tenderness / cord - Neuro Neuro: Alert and oriented X 3 - Psych Psych: Other (tearful) Results - Vitals Vitals: Vital Signs - 24 hr 09/03/18 12:49 Temperature 36.9 C Heart Rate 83 Respiratory 17 Rate Blood Pressure 138/96 H O2 Saturation 99 Oxygen O2 Source Room air - Labs Labs: Laboratory Tests 09/03/18 09/03/18 09/03/18 13:05 13:05 13:05 WBC 11.0 H RBC 5.57 H Hgb 11.7 L Hct 39.9 MCV 71.6 L MCH 21.0 L MCHC 29.3 L RDW 18.0 H Plt Count 465 H MPV 9.5 Neut # (Auto) 6.3 Lymph # (Auto) 3.7 H [place] # (Auto) 0.6 Eos # (Auto) 0.3 Baso # (Auto) 0.0 Absolute Nucleated RBC 0.00 Nucleated RBC % 0.0 Sodium 136 Potassium 3.8 Chloride 101 Carbon Dioxide 25 Anion Gap 10.0 BUN 9 Creatinine 0.6 Estimated GFR (MDRD) 114 Glucose 113 H Calcium 8.7 Total Bilirubin 0.4 AST 19 ALT 28 Alkaline Phosphatase 101 Total Protein 8.3 H Albumin 3.8 Globulin 4.5 H Albumin/Globulin Ratio 0.8 L Lipase 33 TSH 2.92 Free T4 Urine Color Urine Clarity Urine pH Ur Specific [place] Urine Protein Urine Glucose (UA) Urine Ketones Urine Occult Blood Urine Nitrite Urine Bilirubin Urine Urobilinogen Ur Leukocyte Esterase Urine RBC Urine WBC Ur Squamous Epith Cells Urine Bacteria Ur Microscopic Review Urine Culture Comments Urine HCG, Qual Salicylates < 6.0 Urine Opiates Screen Ur Oxycodone Screen Urine Methadone Screen Ur Propoxyphene Screen Acetaminophen < 10 L Ur Barbiturates Screen Ur Tricyclics Screen Ur Phencyclidine Scrn Ur Amphetamine Screen U Methamphetamines Scrn U Benzodiazepines Scrn Urine Cocaine Screen U Cannabinoids Screen Ethyl Alcohol < 5.0 09/03/18 09/03/18 09/03/18 13:05 13:07 14:19 WBC RBC Hgb Hct MCV MCH MCHC RDW Plt Count MPV Neut # (Auto) Lymph # (Auto) [place] # (Auto) Eos # (Auto) Baso # (Auto) Absolute Nucleated RBC Nucleated RBC % Sodium Potassium Chloride Carbon Dioxide Anion Gap BUN Creatinine Estimated GFR (MDRD) Glucose Calcium Total Bilirubin AST ALT Alkaline Phosphatase Total Protein Albumin Globulin Albumin/Globulin Ratio Lipase TSH Free T4 0.79 Urine Color YELLOW Urine Clarity CLEAR Urine pH 5.5 Ur Specific [place] 1.020 1.020 Urine Protein NEGATIVE Urine Glucose (UA) NEGATIVE Urine Ketones NEGATIVE Urine Occult Blood LARGE H Urine Nitrite NEGATIVE Urine Bilirubin NEGATIVE Urine Urobilinogen 0.2 (NORMAL) Ur Leukocyte Esterase NEGATIVE Urine RBC 0-5 Urine WBC 4-5 Ur Squamous Epith Cells FEW Squamous Urine Bacteria Rare Ur Microscopic Review INDICATED Urine Culture Comments NOT INDICATED Urine HCG, Qual NEGATIVE Salicylates Urine Opiates Screen NEGATIVE Ur Oxycodone Screen NEGATIVE Urine Methadone Screen NEGATIVE Ur Propoxyphene Screen NEGATIVE Acetaminophen Ur Barbiturates Screen NEGATIVE Ur Tricyclics Screen NEGATIVE Ur Phencyclidine Scrn NEGATIVE Ur Amphetamine Screen NEGATIVE U Methamphetamines Scrn NEGATIVE U Benzodiazepines Scrn NEGATIVE Urine Cocaine Screen NEGATIVE U Cannabinoids Screen NEGATIVE Ethyl Alcohol PD MEDICAL DECISION MAKING - ED course Complexity details: reviewed results, re-evaluated patient, considered differential, d/w patient, d/w family ED course: Patient is medically clear for psychiatric care. Social work consulted. Patient will be accepted for inpatient services to [facility] by Dr. Mayberry. COBRA forms completed. Patient will be transferred. This document was made in part using voice recognition software. While efforts are made to proofread this document, sound alike and grammatical errors may occur. Departure - Departure Disposition: 65 Psych Hosp/Unit DC/Xfer Clinical Impression: Suicidal ideation Depression Qualifiers: Depression Type: unspecified Qualified Code(s): F32.9 - Major depressive disorder, single episode, unspecified Condition: Stable
[2018-09-03 14:23] LABS: MUDS CUTOFF CONCENTRATIONS CUTOFF CONC BELOW:
[2018-09-03 14:24] LABS: BILIRUBIN,URINE NEGATIVE (NEGATIVE); GLUCOSE, URINE (UA) NEGATIVE (NEGATIVE); KETONES,URINE (UA) NEGATIVE (NEGATIVE); LEUKOCYTE ESTERASE, URINE NEGATIVE (NEGATIVE); NITRITE,URINE NEGATIVE (NEGATIVE); OCCULT BLOOD,URINE LARGE (NEGATIVE); PH,URINE 5.5 PH (5.0-7.5); PROTEIN,URINE NEGATIVE (NEGATIVE); UROBILINOGEN,URINE 0.2 (NORMAL) E.U./dL (NORMAL)
[2018-09-03 14:35] LABS: CLARITY,URINE CLEAR (CLEAR)
[2018-09-03 14:36] LABS: BACTERIA,URINE Rare /HPF (None Seen); RBC,URINE 0-5 /HPF (0-5); SQUAMOUS EPITHELIAL CELL,UR FEW Squamous (<= Few)
[2018-09-03 14:48] LABS: AMPHETAMINE SCREEN,URINE NEGATIVE (NEGATIVE); BENZODIAZEPINES SCREEN, URINE NEGATIVE (NEGATIVE); COCAINE SCREEN URINE NEGATIVE (NEGATIVE); METHADONE SCREEN, URINE NEGATIVE (NEGATIVE); METHAMPHETAMINES SCREEN, URINE NEGATIVE (NEGATIVE); OPIATE SCREEN, URINE NEGATIVE (NEGATIVE); OXYCODONE SCREEN, URINE NEGATIVE (NEGATIVE); PROPOXYPHENE SCREEN, URINE NEGATIVE (NEGATIVE); TRICYCLIC ANTIDEPRESSANT,URINE NEGATIVE (NEGATIVE)
[2018-09-03 15:24] LABS: HCG UR QUAL NEGATIVE
[2018-09-03] MEDS ORDERED: ACETAMINOPHEN 325 MG TABLET PO STA (18:25)
[2018-09-03] MEDS ORDERED: LORazepam 1 MG TABLET PO STA (19:44)
[2018-09-03 22:47] VITALS: BP 122/80
== END 2018-09-03 22:53 ==
LOC: ED 12:45
DX: R45.851 Suicidal ideations (principal); F32.9 Major depressive disorder, single episode, unspecified; F41.9 Anxiety disorder, unspecified; F43.10 Post-traumatic stress disorder, unspecified
CPT/HCPCS: 36415; 80320; 80329; 81001; 81025; 83690; 84439; 99284; A9270; J8499; 80053; 80306; 80307; 81003; 84443; 85025; 87086; 99283

== ENCOUNTER 2019-08-01 22:48 | Emergency (ER) | payer OTHER ==
--- NOTE | 2019-08-01 23:06 | ED Physician Documentation ---
History of Present Illness - Stated complaint Stated Complaint: FEM /9WKS PREG - Chief complaint Chief Complaint: Abd Pain - History obtained from History obtained from: Patient (Patient is a 34-year-old female who presents with vaginal spotting. 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 She does report that she has had some sort of surgery on her uterus that she describes as some sort of cyst removal.She denies any fevers.) Review of Systems Constitutional: reports: Reviewed and negative Eyes: reports: Reviewed and negative Ears: reports: Reviewed and negative Nose: reports: Reviewed and negative Throat: reports: Reviewed and negative Cardiac: reports: Reviewed and negative Respiratory: reports: Reviewed and negative GI: reports: Reviewed and negative : reports: Vaginal bleeding Skin: reports: Reviewed and negative Musculoskeletal: reports: Reviewed and negative Neurologic: reports: Reviewed and negative Psychiatric: reports: Reviewed and negative Endocrine: reports: Reviewed and negative Immunocompromised: reports: Reviewed and negative PD PAST MEDICAL HISTORY - Past Medical History Neuro: Migraines Psych: Depression, Anxiety, Post traumatic stress disorder, Other - Past Surgical History Ortho: Other /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: Other - Present Medications Home Medications: Ambulatory Orders Medication Instructions Recorded Confirmed Fluticasone [Flonase] 07/16/17 Omeprazole [PriLOSEC] 20 mg PO DAILY #30 capsule 07/17/17 - Allergies Allergies/Adverse Reactions: Allergies Allergy/AdvReac Type Severity Reaction Status Date / Time ciprofloxacin Allergy Anaphylaxis Verified 08/01/19 22:59 shrimp AdvReac Edema Verified 08/01/19 22:59 - Social History Does the pt smoke?: No Smoking Status: Never smoker Does the pt drink ETOH?: Yes PD ED PE NORMAL - Vitals Vital signs reviewed: Yes - General General: Alert and oriented X 3, No acute distress, Well developed/nourished - HEENT HEENT: PERRL, Moist mucous membranes - Neck Neck: Supple, no meningeal sign - Cardiac Cardiac: RRR, No murmur, Strong equal pulses - Respiratory Respiratory: No respiratory distress, Clear bilaterally - Abdomen Abdomen: Normal bowel sounds, Soft, Non tender, Non distended, No organomegaly - Female Female : Deferred - Rectal Rectal: Deferred - Back Back: No CVA TTP, No spinal TTP - Derm Derm: Normal color, Warm and dry, No rash - Extremities Extremities: No deformity, No tenderness to palpate, Normal ROM s pain, No edema, No calf tenderness / cord - Neuro Neuro: Alert and oriented X 3, 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, No motor deficit, No sensory deficit, Normal speech - Psych Psych: Normal mood, Normal affect Results - Vitals Vitals: Vital Signs - 24 hr 08/01/19 22:50 Temperature 36.2 C L Heart Rate 101 H Respiratory 18 Rate Blood Pressure 132/74 H O2 Saturation 98 Oxygen O2 Source Room air - Labs Labs: Laboratory Tests 08/02/19 08/02/19 08/02/19 00:20 00:30 00:30 WBC 13.4 H RBC 4.92 Hgb 11.1 L Hct 34.9 L MCV 70.9 L MCH 22.6 L MCHC 31.8 L RDW 18.8 H Plt Count 462 H MPV 9.5 Neut # (Auto) 7.8 H Lymph # (Auto) 4.4 H [place] # (Auto) 0.8 Eos # (Auto) 0.3 Baso # (Auto) 0.1 Absolute Nucleated RBC 0.00 Nucleated RBC % 0.0 Sodium 136 Potassium 3.3 L Chloride 106 Carbon Dioxide 24 Anion Gap 6.0 BUN 10 Creatinine 0.7 Estimated GFR (MDRD) 95 Glucose 125 H Calcium 8.9 HCG, Quant Urine Color YELLOW Urine Clarity CLEAR Urine pH 6.0 Ur Specific [place] 1.025 Urine Protein NEGATIVE Urine Glucose (UA) NEGATIVE Urine Ketones NEGATIVE Urine Occult Blood MODERATE H Urine Nitrite NEGATIVE Urine Bilirubin NEGATIVE Urine Urobilinogen 0.2 (NORMAL) Ur Leukocyte Esterase TRACE H Urine RBC 0-5 Urine WBC 0-3 Ur Squamous Epith Cells FEW Squamous Urine Bacteria Few Ur Microscopic Review INDICATED Urine Culture Comments INDICATED Blood Type 08/02/19 08/02/19 00:30 00:30 WBC RBC Hgb Hct MCV MCH MCHC RDW Plt Count MPV Neut # (Auto) Lymph # (Auto) [place] # (Auto) Eos # (Auto) Baso # (Auto) Absolute Nucleated RBC Nucleated RBC % Sodium Potassium Chloride Carbon Dioxide Anion Gap BUN Creatinine Estimated GFR (MDRD) Glucose Calcium HCG, Quant 05711.00 Urine Color Urine Clarity Urine pH Ur Specific [place] Urine Protein Urine Glucose (UA) Urine Ketones Urine Occult Blood Urine Nitrite Urine Bilirubin Urine Urobilinogen Ur Leukocyte Esterase Urine RBC Urine WBC Ur Squamous Epith Cells Urine Bacteria Ur Microscopic Review Urine Culture Comments Blood Type B POSITIVE PD MEDICAL DECISION MAKING - ED course Complexity details: reviewed results, re-evaluated patient, considered differential (Formal transvaginal ultrasound as well as blood type, urinalysis and CBC and electrolytes ordered patient is well-appearing on exam.Concern would be for miscarriage.), d/w patient (Had a lengthy discussion with this patient's results her ultrasound does not show a heartbeat. She has follow-up with her OB provider on Saturday at that point she will have a repeat ultrasound and repeat quant.), other (Ultrasound results are as follows: IMPRESSION: No discernible pole. No heartbeat. Age by mean sac diameter 6 weeks 4 days. Estimated due date of 03/23/2020. The age is dis-concordant with the patient's established dates based on upon last menstrual period. ) Departure - Departure Disposition: Home, Self Care Clinical Impression: Vaginal bleeding affecting early Condition: Stable Instructions: Bleeding Early Preg Follow-Up: ELLIOT FISHER MD [Primary Care Provider] - Tomorrow Comments: Please follow-up with your OB/primary care provider at [facility] would be [place] this week for recheck.Your ultrasound results are as follows: IMPRESSION: 1. No discernible pole. No heartbeat. Age by mean sac diameter 6 weeks 4 days. Estimated due date 03/23/2020. The age is discordant with the patient's established dates based upon last menstrual period[place] [id number] blood type is B +.
--- NOTE | 2019-08-02 00:31 | Ultrasound Report ---
Reason: 9 weeks preg, bleeding Procedure Date: 08/02/2019 Accession Number: [id number] / [id number] Procedure: US - OB First Trimester CPT Code: Final Report FULL RESULT: EXAM: FIRST TRIMESTER OBSTETRIC ULTRASOUND (Less than 11 weeks) EXAM DATE: 08/02/2019 12:16 AM. CLINICAL HISTORY: 9 weeks , bleeding. LMP: Unknown. COMPARISONS: None. TECHNIQUE: Transabdominal and transvaginal ultrasound examination with static image documentation. CLINICAL DATES: EGA 10 weeks 0 days with SONY 02/27/2020 based on LMP 05/23/2019. ASSESSMENT: Gestational Sac: Single intrauterine. Normal shape. Mean gestational sac diameter: 16.9 mm = 6 weeks 4 days. Yolk sac present. Embryo: There is no discernible pole. There is a perigestational fluid collection measuring 8.5 x 6.1 x 3.6 mm. MATERNAL STRUCTURES: Uterus: Anteverted/Retroverted. Unremarkable. Cervix: Closed. Right Ovary/Adnexa: The ovary measures 3.6 x 2.6 x 2.8 cm, volume 13.7 cc. There is a cyst measuring 3.6 x 2.0 x 2.3 cm. There is some debris within and another smaller cyst measuring 1 cm x 1 cm x 1 cm.. Left Ovary/Adnexa: The ovary measures 2.9 x 1.8 x 1.7 cm, volume 4.9 cc. Unremarkable. Free Fluid: None. Other: None. IMPRESSION: 1. No discernible pole. No heartbeat. Age by mean sac diameter 6 weeks 4 days. Estimated due date 03/23/2020. The age is discordant with the patient's established dates based upon last menstrual period. RADIA
[2019-08-02 00:43] LABS: BASOPHILS # (AUTO) 0.1 10^3/uL (0.0-0.1); BASOPHILS % (AUTO) 0.4 %; EOSINOPHILS # (AUTO) 0.3 10^3/uL (0.0-0.7); EOSINOPHILS % (AUTO) 1.9 %; HGB - HEMOGLOBIN 11.1 g/dL (12.0-16.0); LYMPHOCYTES # (AUTO) 4.4 10^3/uL (1.5-3.5); LYMPHOCYTES % (AUTO) 32.7 %; MEAN CORPUSCULAR HEMOGLOBIN 22.6 pg (27.0-31.0); MEAN CORPUSCULAR HGB CONC 31.8 g/dL (32.0-36.0); MEAN CORPUSCULAR VOLUME 70.9 fL (81.0-99.0); MEAN PLATELET VOLUME 9.5 fL (7.9-10.8); MONOCYTES # (AUTO) 0.8 10^3/uL (0.0-1.0); MONOCYTES % (AUTO) 5.8 %; NEUTROPHILS # (AUTO) 7.8 10^3/uL (1.5-6.6); NEUTROPHILS % (AUTO) 58.8 %; PLT - PLATELET COUNT 462 10^3/uL (130-450); RED BLOOD COUNT 4.92 10^6/uL (4.20-5.40); RED CELL DISTRIBUTION WIDTH 18.8 % (12.0-15.0); WHITE BLOOD COUNT 13.4 x10^3/uL (4.8-10.8)
[2019-08-02 00:54] LABS: BILIRUBIN,URINE NEGATIVE (NEGATIVE); GLUCOSE, URINE (UA) NEGATIVE (NEGATIVE); KETONES,URINE (UA) NEGATIVE (NEGATIVE); LEUKOCYTE ESTERASE, URINE TRACE (NEGATIVE); NITRITE,URINE NEGATIVE (NEGATIVE); OCCULT BLOOD,URINE MODERATE (NEGATIVE); PROTEIN,URINE NEGATIVE (NEGATIVE); UROBILINOGEN,URINE 0.2 (NORMAL) E.U./dL (NORMAL)
[2019-08-02 01:08] LABS: CLARITY,URINE CLEAR (CLEAR)
[2019-08-02 01:09] LABS: BACTERIA,URINE Few /HPF (None Seen); RBC,URINE 0-5 /HPF (0-5); SQUAMOUS EPITHELIAL CELL,UR FEW Squamous (<= Few)
[2019-08-02 01:27] LABS: CALCIUM 8.9 mg/dL (8.5-10.3); CREATININE 0.7 mg/dL (0.4-1.0)
[2019-08-02 01:57] VITALS: BP 124/91
== END 2019-08-02 01:57 | disposition home or self-care (01) ==
LOC: ED 22:48
DX: O20.9 Hemorrhage in early pregnancy, unspecified (principal); O09.291 Supervision of pregnancy with other poor reproductive or obstetric history, first trimester; O09.511 Supervision of elderly primigravida, first trimester; Z3A.01 Less than 8 weeks gestation of pregnancy
CPT/HCPCS: 36415; 76801; 76817; 80048; 81001; 81003; 84702; 85025; 86900; 86901; 87086; 87181; 99283; 99284

== ENCOUNTER 2019-08-10 15:39 | Emergency (ER) | payer OTHER ==
[2019-08-10 16:26] LABS: BASOPHILS # (AUTO) 0.1 10^3/uL (0.0-0.1); BASOPHILS % (AUTO) 0.4 %; EOSINOPHILS # (AUTO) 0.2 10^3/uL (0.0-0.7); EOSINOPHILS % (AUTO) 1.6 %; HGB - HEMOGLOBIN 11.6 g/dL (12.0-16.0); LYMPHOCYTES # (AUTO) 3.4 10^3/uL (1.5-3.5); LYMPHOCYTES % (AUTO) 25.8 %; MEAN CORPUSCULAR HEMOGLOBIN 22.1 pg (27.0-31.0); MEAN CORPUSCULAR VOLUME 71.1 fL (81.0-99.0); MEAN PLATELET VOLUME 9.5 fL (7.9-10.8); MONOCYTES # (AUTO) 0.6 10^3/uL (0.0-1.0); MONOCYTES % (AUTO) 4.7 %; NEUTROPHILS # (AUTO) 8.9 10^3/uL (1.5-6.6); PLT - PLATELET COUNT 426 10^3/uL (130-450); RED BLOOD COUNT 5.26 10^6/uL (4.20-5.40); RED CELL DISTRIBUTION WIDTH 19.3 % (12.0-15.0); WHITE BLOOD COUNT 13.3 x10^3/uL (4.8-10.8)
--- NOTE | 2019-08-10 16:31 | ED Physician Documentation ---
PD HPI FEMALE - Stated complaint Stated Complaint: BLEEDING / FEMALE - Chief complaint Chief Complaint: Abd Pain - History obtained from History obtained from: Patient - History of Present Illness Timing - onset: How many days ago (3) Timing - duration: Days (3) Timing - details: Gradual onset Pain level max: 0, 4 Pain level max: 3 Associated symptoms: Abdominal pain (cramping), Vaginal bleeding. 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: G (3), P (0), Miscarriage(s) (2) Recently seen: Not recently seen Review of Systems Ten Systems: 10 systems reviewed and negative Constitutional: denies: Fever, Chills Respiratory: denies: Cough GI: denies: Nausea, Vomiting, Diarrhea Skin: denies: Rash Musculoskeletal: denies: Neck pain, Back pain Neurologic: denies: Headache PD PAST MEDICAL HISTORY - Past Medical History Past Medical History: Yes Neuro: Migraines Psych: Depression, Anxiety, Post traumatic stress disorder, Other - Past Surgical History Past Surgical History: Yes 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 - Present Medications Home Medications: Ambulatory Orders Medication Instructions Recorded Confirmed Fluticasone [Flonase] 07/16/17 Omeprazole [PriLOSEC] 20 mg PO DAILY #30 capsule 07/17/17 - Allergies Allergies/Adverse Reactions: Allergies Allergy/AdvReac Type Severity Reaction Status Date / Time ciprofloxacin Allergy Anaphylaxis Verified 08/01/19 22:59 shrimp AdvReac Edema Verified 08/01/19 22:59 - Living Situation Living Situation: reports: With family Living Arrangement: reports: At home - Social History Does the pt smoke?: No Smoking Status: Never smoker Does the pt drink ETOH?: Yes - Family History Family history: reports: Non contributory PD ED PE NORMAL - Vitals Vital signs reviewed: Yes - General General: Alert and oriented X 3, No acute distress - HEENT HEENT: Moist mucous membranes - Neck Neck: Supple, no meningeal sign - Cardiac Cardiac: RRR - Respiratory Respiratory: No respiratory distress, Clear bilaterally - Abdomen Abdomen: Soft, Non tender, Non distended - Derm Derm: Warm and dry - Neuro Neuro: Alert and oriented X 3 - Psych Psych: Normal mood, Normal affect Results - Vitals Vitals: Vital Signs - 24 hr 08/10/19 08/10/19 08/10/19 15:46 15:49 18:17 Temperature 36.7 C Heart Rate 93 90 83 Respiratory 16 16 14 Rate Blood Pressure 118/89 H 120/85 H 130/94 H O2 Saturation 97 97 98 Oxygen O2 Source Room air - Labs Labs: Laboratory Tests 08/10/19 08/10/19 08/10/19 16:19 16:19 16:19 WBC 13.3 H RBC 5.26 Hgb 11.6 L Hct 37.4 MCV 71.1 L MCH 22.1 L MCHC 31.0 L RDW 19.3 H Plt Count 426 MPV 9.5 Neut # (Auto) 8.9 H Lymph # (Auto) 3.4 [place] # (Auto) 0.6 Eos # (Auto) 0.2 Baso # (Auto) 0.1 Absolute Nucleated RBC 0.00 Nucleated RBC % 0.0 Sodium 135 Potassium 3.6 Chloride 103 Carbon Dioxide 24 Anion Gap 8.0 BUN 7 Creatinine 0.7 Estimated GFR (MDRD) 95 Glucose 131 H Calcium 9.0 Total Bilirubin 0.5 AST 25 ALT 35 Alkaline Phosphatase 97 Total Protein 7.6 Albumin 3.7 Globulin 3.9 Albumin/Globulin Ratio 0.9 L Lipase 24 HCG, Quant Urine Color Urine Clarity Urine pH Ur Specific [place] Urine Protein Urine Glucose (UA) Urine Ketones Urine Occult Blood Urine Nitrite Urine Bilirubin Urine Urobilinogen Ur Leukocyte Esterase Urine RBC Urine WBC Ur Squamous Epith Cells Urine Bacteria Ur Microscopic Review Urine Culture Comments Blood Type B POSITIVE Antibody Screen NEGATIVE 08/10/19 08/10/19 16:19 18:15 WBC RBC Hgb Hct MCV MCH MCHC RDW Plt Count MPV Neut # (Auto) Lymph # (Auto) [place] # (Auto) Eos # (Auto) Baso # (Auto) Absolute Nucleated RBC Nucleated RBC % Sodium Potassium Chloride Carbon Dioxide Anion Gap BUN Creatinine Estimated GFR (MDRD) Glucose Calcium Total Bilirubin AST ALT Alkaline Phosphatase Total Protein Albumin Globulin Albumin/Globulin Ratio Lipase HCG, Quant 83260.00 Urine Color LT RED Urine Clarity CLOUDY Urine pH 6.5 Ur Specific [place] 1.015 Urine Protein NEGATIVE Urine Glucose (UA) NEGATIVE Urine Ketones NEGATIVE Urine Occult Blood LARGE H Urine Nitrite NEGATIVE Urine Bilirubin NEGATIVE Urine Urobilinogen 0.2 (NORMAL) Ur Leukocyte Esterase TRACE H Urine RBC TNTC H Urine WBC 0-3 Ur Squamous Epith Cells FEW Squamous Urine Bacteria None Seen Ur Microscopic Review INDICATED Urine Culture Comments INDICATED Blood Type Antibody Screen - Rads (name of study) OB ultrasound Radiology: Prelim report reviewed, EMP read contemporaneously, See rad report (Gestational sac actively moving from lower uterine segment into the vaginal canal consistent with an in progress) PD MEDICAL DECISION MAKING - ED course Complexity details: reviewed results, re-evaluated patient, considered d ifferential, d/w patient, d/w family ED course: Patient with a miscarriage today. We will have her follow-up with OB for further care. This is her third miscarriage and she will likely need to go see OB for further work-up. Patient counseled regarding signs and symptoms for which I believe and urgent re-evaluation would be necessary. Patient with good understanding of and agreement to plan and is comfortable going home at this time This document was made in part using voice recognition software. While efforts are made to proofread this document, sound alike and grammatical errors may occur. Departure - Departure Disposition: 01 Home, Self Care Clinical Impression: Miscarriage Condition: Good Instructions: ED Miscarriage Completed Follow-Up: ELLIOT FISHER MD [Primary Care Provider] - Within 1 week Comments: Return if you worsen. Follow up with your doctor for further care. you appear to have had a miscarriage today. Discharge Date/Time: 08/10/19 18:44
[2019-08-10 16:40] LABS: ALBUMIN 3.7 g/dL (3.2-5.5); ALBUMIN/GLOBULIN RATIO 0.9 (1.0-2.2); BILIRUBIN,TOTAL 0.5 mg/dL (0.2-1.0); CREATININE 0.7 mg/dL (0.4-1.0); TOTAL PROTEIN 7.6 g/dL (6.7-8.2)
[2019-08-10] MEDS: ACETAMINOPHEN 325 MG TABLET PO STA (18:17)
[2019-08-10 18:18] VITALS: BP 130/94
[2019-08-10 18:21] LABS: BILIRUBIN,URINE NEGATIVE (NEGATIVE); GLUCOSE, URINE (UA) NEGATIVE (NEGATIVE); KETONES,URINE (UA) NEGATIVE (NEGATIVE); LEUKOCYTE ESTERASE, URINE TRACE (NEGATIVE); NITRITE,URINE NEGATIVE (NEGATIVE); OCCULT BLOOD,URINE LARGE (NEGATIVE); PH,URINE 6.5 PH (5.0-7.5); PROTEIN,URINE NEGATIVE (NEGATIVE); UROBILINOGEN,URINE 0.2 (NORMAL) E.U./dL (NORMAL)
[2019-08-10 18:22] LABS: CLARITY,URINE CLOUDY (CLEAR)
--- NOTE | 2019-08-10 18:23 | Ultrasound Report ---
Reason: 5 weeks EGA, VB Procedure Date: 08/10/2019 Accession Number: [id number] / [id number] Procedure: US - OB Transvaginal CPT Code: Final Report FULL RESULT: PROCEDURE: OB Transvaginal INDICATIONS: 5 weeks EGA, VB OUTSIDE/PRIOR DATING DATA: Last menstrual period (LMP): 07/13/2019. LMP-based estimated date of delivery (SOYN): 03/23/2020. First dating scan (date and location): 08/01/2019 Estimated date of delivery (SONY) from first dating scan: Not applicable. TECHNIQUE: Real-time scanning was performed of the fetus and maternal pelvic organs, with image documentation. COMPARISON: 08/01/2019 FINDINGS: Embryo: Intrauterine gestational sac is identified measuring 1.4 cm which corresponds to 6 weeks 2 days. This is corresponding to 1.7 cm and 6 weeks 4 days on 08/01/2019. No pole or heart tones are identified. It is noted that the gestational sac was initially identified in the lower uterine segment and moved into the vaginal canal during exam. Measurement variability in dating: +/- 4 weeks by LMP, +/- 7 days by mean sac diameter (use before 6 weeks gestation if crown-rump length not able to be measured), +/- 5 days by crown-rump length (6-12 weeks gestation). Maternal organs: Ovaries demonstrate a right ovarian cyst as previously noted. Limited images through the kidneys demonstrate no hydronephrosis. IMPRESSION: Gestational sac actively moving from lower uterine segment into the vaginal canal consistent with in progress. Reviewed by: Monica Perez MD on 08/10/2019 6:19 PM PDT Approved by: Monica Perez MD on 08/10/2019 6:19 PM PDT Station ID: [id number]
--- NOTE | 2019-08-10 18:23 | Ultrasound Report ---
Reason: 5 weeks EGA, VB Procedure Date: 08/10/2019 Accession Number: [id number] / [id number] Procedure: US - OB First Trimester CPT Code: Final Report FULL RESULT: PROCEDURE: OB First Trimester INDICATIONS: 5 weeks EGA, VB OUTSIDE/PRIOR DATING DATA: Last menstrual period (LMP): 07/13/2019. LMP-based estimated date of delivery (SONY): 03/23/2020. First dating scan (date and location): 08/01/2019 Estimated date of delivery (SONY) from first dating scan: Not applicable. TECHNIQUE: Real-time scanning was performed of the fetus and maternal pelvic organs, with image documentation. COMPARISON: 08/01/2019 FINDINGS: Embryo: Intrauterine gestational sac is identified measuring 1.4 cm which corresponds to 6 weeks 2 days. This is corresponding to 1.7 cm and 6 weeks 4 days on 08/01/2019. No pole or heart tones are identified. It is noted that the gestational sac was initially identified in the lower uterine segment and moved into the vaginal canal during exam. Measurement variability in dating: +/- 4 weeks by LMP, +/- 7 days by mean sac diameter (use before 6 weeks gestation if crown-rump length not able to be measured), +/- 5 days by crown-rump length (6-12 weeks gestation). Maternal organs: Ovaries demonstrate a right ovarian cyst as previously noted. Limited images through the kidneys demonstrate no hydronephrosis. IMPRESSION: Gestational sac actively moving from lower uterine segment into the vaginal canal consistent with in progress. Reviewed by: Monica Perez MD on 08/10/2019 6:19 PM PDT Approved by: Monica Perez MD on 08/10/2019 6:19 PM PDT Station ID: [id number]
[2019-08-10 18:33] LABS: BACTERIA,URINE None Seen /HPF (None Seen); RBC,URINE TNTC /HPF (0-5); SQUAMOUS EPITHELIAL CELL,UR FEW Squamous (<= Few)
== END 2019-08-10 18:44 | disposition home or self-care (01) ==
LOC: ED 15:39
DX: O03.4 Incomplete spontaneous abortion without complication (principal); Z87.59 Personal history of other complications of pregnancy, childbirth and the puerperium; N96 Recurrent pregnancy loss
CPT/HCPCS: 36415; 76801; 76817; 80053; 81001; 83690; 84702; 85025; 86850; 86900; 86901; 87086; 99284; A9270; 81003; 84703

== ENCOUNTER 2019-08-14 11:57 | Outpatient (CLI) | payer OTHER ==
[2019-08-14 12:27] LABS: BASOPHILS % (AUTO) 0.4 %; EOSINOPHILS # (AUTO) 0.2 10^3/uL (0.0-0.7); EOSINOPHILS % (AUTO) 2.3 %; HGB - HEMOGLOBIN 10.7 g/dL (12.0-16.0); LYMPHOCYTES # (AUTO) 3.3 10^3/uL (1.5-3.5); LYMPHOCYTES % (AUTO) 34.8 %; MEAN CORPUSCULAR HEMOGLOBIN 21.6 pg (27.0-31.0); MEAN CORPUSCULAR HGB CONC 30.5 g/dL (32.0-36.0); MEAN CORPUSCULAR VOLUME 70.9 fL (81.0-99.0); MEAN PLATELET VOLUME 9.4 fL (7.9-10.8); MONOCYTES # (AUTO) 0.4 10^3/uL (0.0-1.0); MONOCYTES % (AUTO) 4.7 %; NEUTROPHILS # (AUTO) 5.4 10^3/uL (1.5-6.6); NEUTROPHILS % (AUTO) 57.5 %; PLT - PLATELET COUNT 406 10^3/uL (130-450); RED BLOOD COUNT 4.95 10^6/uL (4.20-5.40); RED CELL DISTRIBUTION WIDTH 19.1 % (12.0-15.0); WHITE BLOOD COUNT 9.4 x10^3/uL (4.8-10.8)
[2019-08-14 12:41] LABS: HB2 TOTAL 11.2 g/dL; HEMOGLOBIN A1C 0.45 g/dL; HEMOGLOBIN A1C % 5.8 % (4.6-6.2)
[2019-08-14 13:02] LABS: PROLACTIN 52.61 ng/mL
== END 2019-08-14 11:58 | disposition home or self-care (01) ==
LOC: LAB 11:57
PROVIDERS: ATTEND Advanced Practice Midwife
DX: O03.9 Complete or unspecified spontaneous abortion without complication (principal)
CPT/HCPCS: 36415; 81599; 83036; 84146; 84443; 84702; 85025; 85613; 85730; 86147; 86376; 86800

== ENCOUNTER 2019-08-20 17:10 | Outpatient (CLI) | payer OTHER | END 2019-08-20 23:59 | disposition home or self-care (01) | LOC: LAB.R 17:10 | PROVIDERS: ATTEND Obstetrics & Gynecology | DX: R30.0 Dysuria (principal) | CPT/HCPCS: 87086 ==

== ENCOUNTER 2019-08-31 12:09 | Outpatient (CLI) | payer OTHER ==
[2019-08-31] MEDS ORDERED: GADOBUTROL 7.5 MMOL/7.5 ML VIAL ONE (12:57)
[2019-08-31] MEDS ORDERED: GADOBUTROL 7.5 MMOL/7.5 ML VIAL IVP ONE (14:31)
--- NOTE | 2019-08-31 16:38 | MRI Report ---
PROCEDURE: Brain W/WO INDICATIONS: HYPERPROLACTINEMIA CONTRAST: IV CONTRAST: Gadavist ml: 7.5 TECHNIQUE: Noncontrast axial T1 spin echo, axial T2 fast spin echo, sagittal and axial FLAIR, coronal T2 fast sp in echo, axial gradient echo, axial diffusion and ADC through the brain. After the administration of contrast, axial and coronal T1 spin echo with fat saturation through the brain. COMPARISON: None. FINDINGS: Image quality: Excellent. CSF spaces: Basal cisterns are patent. No extra-axial fluid collections. Ventricles are normal in size and shape. Brain: No midline shift. No intracranial bleeds or masses. No abnormal intracranial enhancement. There is cerebral volume loss for age. There is periventricular white matter chronic small vessel is chemic change. The brainstem appears normal. Diffusion-weighted images demonstrate no acute ischemi c insults. No chronic ischemic insults. Normal intravascular flow voids are present. Pituitary gla nd is normal areas of delayed enhancement identified. Skull and face: Calvarial marrow is normal in signal. Orbits appear normal. Sinuses: Sinuses and mastoids appear clear. IMPRESSION: 1. No acute intracranial process. 2. Pituitary gland is unremarkable. Reviewed by: Monica Perez MD on 08/31/2019 4:37 PM PDT Approved by: Monica Perez MD on 08/31/2019 4:37 PM PDT Station ID: [id number]
== END 2019-08-31 12:10 | disposition home or self-care (01) ==
LOC: DI 12:09
PROVIDERS: ATTEND Obstetrics & Gynecology
DX: E22.1 Hyperprolactinemia (principal); O03.9 Complete or unspecified spontaneous abortion without complication
CPT/HCPCS: 36415; 70553; 84702; A9585

== ENCOUNTER 2020-05-31 02:28 | Emergency (ER) | payer OTHER ==
[2020-05-31 02:53] LABS: BILIRUBIN,URINE NEGATIVE (NEGATIVE); GLUCOSE, URINE (UA) NEGATIVE (NEGATIVE); KETONES,URINE (UA) NEGATIVE (NEGATIVE); LEUKOCYTE ESTERASE, URINE NEGATIVE (NEGATIVE); NITRITE,URINE NEGATIVE (NEGATIVE); OCCULT BLOOD,URINE NEGATIVE (NEGATIVE); PROTEIN,URINE NEGATIVE (NEGATIVE); UROBILINOGEN,URINE 0.2 (NORMAL) E.U./dL (NORMAL)
[2020-05-31 02:55] LABS: CLARITY,URINE CLEAR (CLEAR); HCG UR QUAL NEGATIVE
[2020-05-31 02:58] LABS: BASOPHILS # (AUTO) 0.1 10^3/uL (0.0-0.1); BASOPHILS % (AUTO) 0.4 %; EOSINOPHILS # (AUTO) 0.3 10^3/uL (0.0-0.7); EOSINOPHILS % (AUTO) 1.8 %; HCT - HEMATOCRIT 43.1 % (37.0-47.0); HGB - HEMOGLOBIN 13.8 g/dL (12.0-16.0); LYMPHOCYTES # (AUTO) 5.3 10^3/uL (1.5-3.5); LYMPHOCYTES % (AUTO) 37.5 %; MEAN CORPUSCULAR HEMOGLOBIN 26.6 pg (27.0-31.0); MEAN PLATELET VOLUME 9.8 fL (7.9-10.8); MONOCYTES # (AUTO) 0.7 10^3/uL (0.0-1.0); MONOCYTES % (AUTO) 4.7 %; NEUTROPHILS # (AUTO) 7.9 10^3/uL (1.5-6.6); NEUTROPHILS % (AUTO) 55.4 %; PLT - PLATELET COUNT 366 10^3/uL (130-450); RED BLOOD COUNT 5.19 10^6/uL (4.20-5.40); RED CELL DISTRIBUTION WIDTH 14.2 % (12.0-15.0); WHITE BLOOD COUNT 14.2 x10^3/uL (4.8-10.8)
--- NOTE | 2020-05-31 03:02 | ED Physician Documentation ---
PD HPI ABD PAIN - Stated complaint Stated Complaint: FEMALE - Chief complaint Chief Complaint: Abd Pain - History obtained from History obtained from: Patient - History of Present Illness Timing - onset: How many hours ago (2) Timing - details: Gradual onset Pain level now: 4 Quality: Cramping, Pain Location: LLQ Radiation: Lower back, Left flank Improved by: Other (no ameliorating factors) Worsened by: Other (no exacerbating factors) Associated symptoms: Nausea. No: Fever, Vomiting Similar symptoms before: No diagnosis (has had similar pain, episodically, x 2.5 years without diagnosis despite w/u that has incuded upper and lower endoscopy) - Additional information Additional information: Patient complains of left lower quadrant pain that radiates around her left lying to her left lower back. This started approximately two hours ago, waking her from sleep. She has had some more episodes, episodically, for the past 2 1/2 years. However, she does not have a diagnosis despite work up that has included upper and lower endoscopy s. She says this pain is slightly different from her usual pain, and that it is worse in intensity and radiating around to her lower back. Review of Systems Constitutional: reports: Reviewed and negative Cardiac: reports: Reviewed and negative Respiratory: reports: Reviewed and negative GI: reports: Abdominal Pain, Nausea. 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 - Present Medications Home Medications: Ambulatory Orders Medication Instructions Recorded Confirmed Ascorbic Acid [Vitamin C] 1 tab PO DAILY 05/31/20 05/31/20 Ergocalciferol [Vitamin D2] 1 tab PO DAILY 05/31/20 05/31/20 Oxycodone HCl/Acetaminophen 1 - 2 each PO Q6H PRN #14 tablet 05/31/20 [Percocet 5-325 mg Tablet] metFORMIN [Glucophage] 1 tab PO DAILY 05/31/20 05/31/20 - Allergies Allergies/Adverse Reactions: Allergies Allergy/AdvReac Type Severity Reaction Status Date / Time ciprofloxacin Allergy Anaphylaxis Verified 05/31/20 02:33 fluoxetine [From Prozac] Allergy Edema Verified 05/31/20 02:34 hydralazine Allergy Edema Verified 05/31/20 02:34 shrimp AdvReac Edema Verified 05/31/20 02:33 - Social History Does the pt smoke?: No Smoking Status: Never smoker Does the pt drink ETOH?: Yes PD ED PE NORMAL - Vitals Vital signs reviewed: Yes - General General: Alert and oriented X 3, No acute distress (NAD except she has episodes of obvious painful distress during H+P lasting 1-2 minutes), Well de veloped/nourished - HEENT HEENT: Moist mucous membranes - Neck Neck: Supple, no meningeal sign - Cardiac Cardiac: RRR, No murmur - Respiratory Respiratory: No respiratory distress, Clear bilaterally - Abdomen Abdomen: Soft, Non distended, Other (mild TTP across lower abdomen) - Back Back: No CVA TTP Results - Vitals Vitals: Oxygen O2 Source Room air - Labs Labs: Laboratory Tests 05/31/20 05/31/20 05/31/20 02:45 02:50 02:50 WBC 14.2 H RBC 5.19 Hgb 13.8 Hct 43.1 MCV 83.0 MCH 26.6 L MCHC 32.0 RDW 14.2 Plt Count 366 MPV 9.8 Neut # (Auto) 7.9 H Lymph # (Auto) 5.3 H [place] # (Auto) 0.7 Eos # (Auto) 0.3 Baso # (Auto) 0.1 Absolute Nucleated RBC 0.00 Nucleated RBC % 0.0 WBC Morphology NORMAL APPEARANCE Platelet Estimate NORMAL (130-450,000) Platelet Morphology NORMAL APPEARANCE RBC Morph Micro Appear NORMAL APPEARANCE Sodium 136 Potassium 3.7 Chloride 102 Carbon Dioxide 24 Anion Gap 10.0 BUN 14 Creatinine 0.7 Estimated GFR (MDRD) 94 Glucose 114 H Calcium 9.1 Total Bilirubin 0.4 AST 18 ALT 24 Alkaline Phosphatase 80 Total Protein 7.5 Albumin 4.0 Globulin 3.5 Albumin/Globulin Ratio 1.1 Lipase 38 Urine Color YELLOW Urine Clarity CLEAR Urine pH 7.0 Ur Specific [place] <=1.005 Urine Protein NEGATIVE Urine Glucose (UA) NEGATIVE Urine Ketones NEGATIVE Urine Occult Blood NEGATIVE Urine Nitrite NEGATIVE Urine Bilirubin NEGATIVE Urine Urobilinogen 0.2 (NORMAL) Ur Leukocyte Esterase NEGATIVE Ur Microscopic Review NOT INDICATED Urine Culture Comments NOT INDICATED Urine HCG, Qual NEGATIVE - Rads (name of study) CT A/P with IV contrast Radiology: Prelim report reviewed, See rad report PD MEDICAL DECISION MAKING - ED course Complexity details: reviewed results, re-evaluated patient, considered differential, d/w patient ED course: mild leukocytosis but otherwise unremarkable blood tests, UA results. CT a/p shows inflammatory changes of small bowel s/o enteritis, differential also includes Crohns disease. she has no fever, no diarrhea nor bloody stool. she is instructed to return if worse, particularly if fever, diarrhea, or bloody stool. she is instructed to f/u with her medical provider (GI would be ideal but PMD if this can be arranged sooner). Departure - Departure Disposition: Home, Self Care Clinical Impression: Enteritis Condition: Good Instructions: ED Gastroenteritis Non Infec Prescriptions: Oxycodone HCl/Acetaminophen [Percocet 5-325 mg Tablet] 1 - 2 each PO Q6H PRN #14 tablet PRN Reason: pain Comments: Your CT scan shows mild inflammation of the small bowel; this is a nonspecific finding (does not indicate a specific diagnosis) and further testing might be necessary. Your primary care physician or orientation and mobility specialist can order tests at their discretion Discharge Date/Time: 05/31/20 07:55
[2020-05-31 03:11] LABS: ALBUMIN/GLOBULIN RATIO 1.1 (1.0-2.2); BILIRUBIN,TOTAL 0.4 mg/dL (0.2-1.0); CALCIUM 9.1 mg/dL (8.5-10.3); CREATININE 0.7 mg/dL (0.4-1.0); POTASSIUM 3.7 mmol/L (3.5-5.0); TOTAL PROTEIN 7.5 g/dL (6.7-8.2)
[2020-05-31 03:18] LABS: PLATELET MORPHOLOGY NORMAL APPEARANCE (NORMAL); RBC MORPHOLOGY (MULTIPLE) NORMAL APPEARANCE (NORMAL)
[2020-05-31 03:19] LABS: PLATELET ESTIMATE, MANUAL NORMAL (130-450,000) (NORMAL); WBC MORPHOLOGY (MULTIPLE) NORMAL APPEARANCE (NORMAL)
[2020-05-31] MEDS ORDERED: KETOROLAC 30 MG/ML VIAL IVP STA (03:20)
[2020-05-31] MEDS ORDERED: IOVERSOL 320 100 ML VIAL IVP ONE ×2 (04:00→05:42)
[2020-05-31] MEDS ORDERED: MORPHINE 2 MG/ML CARPUJECT IVP STA ×2 (05:15→06:54)
--- NOTE | 2020-05-31 08:42 | CT Report ---
PROCEDURE: Abdomen/Pelvis W INDICATIONS: LLQ, left flank pain CONTRAST: IV CONTRAST: Optiray 320 ml: 700 PO CONTRAST: *NO PO CONTRAST TECHNIQUE: After the administration of intravenously contrast, 5 mm thick sections acquired from the diaphragms to the symphysis. 5 mm thick coronal and sagittal reformats were acquired. For radiation dose reduc tion, the following was used: automated exposure control, adjustment of mA and/or kV according to pa tient size. COMPARISON: None. FINDINGS: Image quality: Excellent. ABDOMEN: Lung bases: Lung bases are clear. Heart size is normal. Solid organs: Liver and spleen are normal in size and enhancement. Gallbladder contains a gallstone measuring 2.2 cm. No gallbladder wall thickening or adjacent inflammatory changes demonstrated. Jose Elias iary system is non dilated. Pancreas enhances normally. No adrenal nodules. Kidneys demonstrate no rmal size and enhancement, without hydronephrosis. Peritoneum and bowel: No abnormally dilated loop of bowel. Mild mucosal hyperenhancement and wall thi ckening of multiple left upper quadrant proximal small bowel loops with inspissated intraluminal cont ent throughout. The appendix is normal. No hyperenhancement at the terminal ileum. No mesenteric or p ericolonic fat stranding. No pneumatosis, pneumoperitoneum, or free fluid. No threshold enlarged mese nteric lymph node. Nodes and vessels: No retroperitoneal or mesenteric adenopathy by size criteria. Aorta and inferior vena cava are normal in size. Miscellaneous: No ventral hernias. PELVIS: Genitourinary: Bladder wall thickness is normal. Small uterine fibroid. Miscellaneous: No inguinal hernias or adenopathy. Bones: No suspicious bony lesions. No vertebral body compression fractures. IMPRESSION: Nonspecific wall thickening and mucosal hyperenhancement within multiple proximal small bowel loops, also with findings indicative of decreased antegrade peristalsis. Differential considerations include infectious or inflammatory enteritis (with inflammatory bowel disease such as Crohn's disease in the differential). Cholelithiasis. Small uterine fibroid. Reviewed by: Noble Hudson MD on 05/31/2020 8:40 AM PDT Approved by: Noble Hudson MD on 05/31/2020 8:40 AM PDT Station ID: [id number]
[2020-05-31 11:35] VITALS: BP 117/79
== END 2020-05-31 07:55 | disposition home or self-care (01) ==
LOC: ED 02:28
DX: K52.9 Noninfective gastroenteritis and colitis, unspecified (principal); D25.9 Leiomyoma of uterus, unspecified
CPT/HCPCS: 36415; 74177; 80053; 81003; 81025; 83690; 85025; 99284; Q9967; 81001; 87086

== ENCOUNTER 2020-06-15 11:10 | Emergency (ER) | payer OTHER ==
[2020-06-15 11:21] VITALS: BP 139/93
--- OUTSIDE RECORDS SUMMARY | 2020-06-15 11:32 | EXTERNAL MEDICAL SUMMARY RPT | Continuity of Care Document ---
:1985 Demographics Phone Unavailable Preferred Language Swedish Marital Status Unknown Worship Affiliation Unknown Race Unknown Ethnic Group Unknown Author Organization [place] Address [address] [phone] Phone Care Team Providers Name Role Phone Clerc Unavailable Unavailable Raish Unavailable Unavailable Problems date description facility [id number] Iron deficiency anemia, unspecified [facility] [id number] Iron deficiency anemia, unspecified [facility] [id number] Iron deficiency anemia, unspecified [facility] [id number] Contact with and (suspected) exposure t o COVID-[address] [place] [id number] Encounter for preprocedural laboratory examination [facility] [id number] Gastro-esophageal reflux disease withou t esophagitis [facility] [id number] Iron deficiency anemia, unspecified [facility] [id number] Left lower quadrant pain [facility] Medications date description facility [id number] Cholecalciferol 1000 UNT Oral Tablet I [facility] [id number] Cholecalciferol 1000 UNT Oral Tablet I [facility] [id number] Loratadine 10 MG Oral Capsule [facility] 20200418 Loratadine 10 MG Oral Capsule [facility] Procedures date description facility [id number] [facility] date description facility [id number] Diagnosis [facility] date description facility [id number] [facility] date description facility [id number] [facility] date description facility [id number] [facility] date description facility [id number] [facility] Vital Signs date measurement value source [id number] BP_diastolic 74 mm[Hg] 71635465 BP_systolic 142 mm[Hg] 55437905 heart_rate 80 /min 25614744 respiration_rate 18 /min 10818973 temperature_metric 36.22 C [id number] temperature_standard 97.2 F [id number] weight_metric 103.1 kg 04304630 weight_standard 227.3 lb 76477042 BP_diastolic 74 mm[Hg] 99802137 BP_systolic 142 mm[Hg] 97873220 heart_rate 80 /min 29295754 respiration_rate 18 /min 81808419 temperature_metric 36.22 C 88026159 temperature_standard 97.2 F 23598907 weight_metric 103.1 kg 08224972 weight_standard 227.3 lb date measurement value source [id number] BMI 35.5 kg/m2 20200504 BP_diastolic 77 mm[Hg] 20200504 BP_systolic 111 mm[Hg] 20200504 heart_rate 64 /min 20200504 height_metric 167.64 cm 20200504 height_standard 66 in 20200504 respiration_rate 16 /min 20200504 temperature_metric 36.61 C 20200504 temperature_standard 97.9 F 20200504 weight_metric 45.26 kg 20200504 weight_standard 99.79 lb Social History date description facility [id number]
[2020-06-15] MEDS ORDERED: SODIUM CHLORIDE 0.9% 1,000 ML IV STA (11:40)
[2020-06-15] MEDS ORDERED: ONDANSETRON 4 MG/2 ML VIAL IVP STA (11:40)
--- NOTE | 2020-06-15 11:53 | ED Physician Documentation ---
History of Present Illness - Stated complaint Stated Complaint: ALLERGIC REACTION/C VAC - Chief complaint Chief Complaint: General - Additonal information Additional information: 35-year-old female is brought to the emergency department for evaluation of feeling nauseated lightheaded and a sensation of euphoria that began about 10 minutes after receiving her initial COVID-19 vaccination on [facility]. Patient reports that she was feeling fine in the morning and yesterday evening before the vaccine. She is denying chest pain or shortness of breath. No cough. No fevers. No abdominal pain or dysuria. She does report a mild frontal headache. Denies the possibility of . She states that she has not eaten this morning before the vaccination but says that that is not abnormal for her. She also reports that she was told she was pre-diabetic but after mild weight loss and improved diet has been told she is no longer pre-diabetic with an improved A1c. on exam she is alert, but nauseated, holding an emesis bag. No focal neuro deficits. was seen here late may with lower abdomin Meds: iron and "supplements." PMH: iron deficiency anemia Review of Systems Constitutional: denies: Fever, Chills, Myalgias Eyes: denies: Loss of vision, Decreased vision, Photophobia Ears: denies: Loss of hearing Nose: denies: Rhinorrhea / runny nose, Congestion Cardiac: denies: Chest pain / pressure, Palpitations, Pedal edema, Calf pain Respiratory: denies: Dyspnea, Cough GI: reports: Nausea. denies: Abdominal Pain, Abdominal Swelling, Vomiting, Constipation, Diarrhea : denies: Dysuria, Hesitancy Skin: denies: Rash, Lesions Musculoskeletal: denies: Neck pain, Extremity pain Neurologic: reports: Headache. 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 - Present Medications Home Medications: Ambulatory Orders Medication Instructions Recorded Confirmed No Known Home Medications 06/15/20 06/15/20 - Allergies Allergies/Adverse Reactions: Allergies Allergy/AdvReac Type Severity Reaction Status Date / Time ciprofloxacin Allergy Anaphylaxis Verified 06/15/20 11:22 fluoxetine [From Prozac] Allergy Edema Verified 06/15/20 11:22 hydralazine Allergy Edema Verified 06/15/20 11:22 shrimp AdvReac Edema Verified 06/15/20 11:22 - Social History Does the pt smoke?: No Smoking Status: Never smoker Does the pt drink ETOH?: Yes Does the pt have substance abuse?: No - Immunizations Immunizations are current?: Yes PD ED PE EXPANDED - General General: Alert, Other (nauseated) - Cardiac Cardiac: Regular Rate, Radial strong equal, Cap refill < 2 sec, Prolonged cap refill. No: Murmur Present - Respiratory Respiratory: Clear to ausultation kale. No: Distress, Labored - Abdomen Abdomen: Normal Bowel sounds. No: Tender to palpation - Derm Derm: Normal color, Warm and dry - Neuro Neuro: Alert and Oriented X 3, CNII-XII intact, Normal gait, Normal finger nose, Normal speech. No: Weakness, Aphasia - GCS Eye Opening: Spontaneous Motor: Obeys Commands Verbal: Oriented Total: 15 Results - Vitals Vitals: Vital Signs - 24 hr 06/15/20 06/15/20 11:16 11:46 Temperature 36.0 C L 36.5 C Heart Rate 62 62 Respiratory 16 16 Rate Blood Pressure 139/93 H 139/93 H O2 Saturation 100 99 Oxygen O2 Source Room air - EKG (time done) 1147 Rate: Rate (enter#) (58) Rhythm: NSR [place]: Normal Intervals: Normal MS, Prolonged QT QRS: Normal Ischemia: Normal ST segments Compare to prior EKG: Old EKG unavailable Computer interpretation: Agree with computer - Labs Labs: Laboratory Tests 06/15/20 06/15/20 06/15/20 11:50 12:15 12:15 WBC 9.5 RBC 5.35 Hgb 14.3 Hct 44.4 MCV 83.0 MCH 26.7 L MCHC 32.2 RDW 14.5 Plt Count 369 MPV 9.9 Neut # (Auto) 5.5 Lymph # (Auto) 3.4 [place] # (Auto) 0.4 Eos # (Auto) 0.2 Baso # (Auto) 0.0 Absolute Nucleated RBC 0.00 Nucleated RBC % 0.0 Sodium 140 Potassium 3.9 Chloride 104 Carbon Dioxide 26 Anion Gap 10.0 BUN 12 Creatinine 0.8 Estimated GFR (MDRD) 81 L Glucose 101 H Calcium 9.2 Total Bilirubin 0.5 AST 22 ALT 33 Alkaline Phosphatase 97 Total Protein 8.1 Albumin 4.0 Globulin 4.1 Albumin/Globulin Ratio 1.0 Lipase 26 Urine Color STRAW Urine Clarity HAZY Urine pH 6.5 Ur Specific [place] <=1.005 Urine Protein NEGATIVE Urine Glucose (UA) NEGATIVE Urine Ketones NEGATIVE Urine Occult Blood NEGATIVE Urine Nitrite POSITIVE H Urine Bilirubin NEGATIVE Urine Urobilinogen 0.2 (NORMAL) Ur Leukocyte Esterase NEGATIVE Urine RBC None Seen Urine WBC 0-3 Ur Squamous Epith Cells MOD Squamous H Urine Bacteria Many H Ur Microscopic Review INDICATED Urine Culture Comments NOT INDICATED Urine HCG, Qual NEGATIVE PD MEDICAL DECISION MAKING - ED course Complexity details: reviewed results, re-evaluated patient, considered differential, d/w patient ED course: This is a well-appearing 35-year-old female that presents to the emergency department with acute onset nausea and a feeling of lightheadedness and euphoria after receiving the COVID-19 vaccination. She was feeling well prior to the vaccine. She had no associated chest pain or shortness of breath. No abdominal pain dysuria urgency or frequency. On presentation she appeared fairly nauseated. However the nausea immediately resolved after receiving IV fluids as well as Zofran. She is now tolerating oral fluids and feels markedly better. Screening EKG was nonischemic. Screening labs also showed no acute abnormali ties. Her urine did suggest infection with nitrite positive UA however there were moderate squames and many bacteria. Given absence of urinary symptoms will defer treatment unless culture is significantly positive. I suspect patient had a vagal reaction after her vaccination. She was not hypoglycemic and she had an normal neuro and cerebellar exam. Patient will be discharged home. Encouraged fluids rest. Emergent return precautions were discussed. Departure - Departure Disposition: 01 Home, Self Care Clinical Impression: Nausea after vaccination Condition: Stable Record reviewed to determine appropriate education?: Yes Comments: Elvira you were seen in the emergency department after you developed nausea and lightheadedness when you received your vaccination. Your symptoms resolved after receiving a nausea medication as well as some IV fluids. I do not suspect you had an allergic reaction to the COVID-19 vaccine. It is safe for you to take the vaccine in a few weeks when scheduled. I do recommend that you eat a meal prior to getting the vaccine. If at any point you feel that your symptoms are worsening, you have fevers, suddenly severe belly pain, slurred speech or arm or leg weakness then please re turn immediately to the emergency department.
[2020-06-15 12:25] LABS: BILIRUBIN,URINE NEGATIVE (NEGATIVE); GLUCOSE, URINE (UA) NEGATIVE (NEGATIVE); KETONES,URINE (UA) NEGATIVE (NEGATIVE); LEUKOCYTE ESTERASE, URINE NEGATIVE (NEGATIVE); NITRITE,URINE POSITIVE (NEGATIVE); OCCULT BLOOD,URINE NEGATIVE (NEGATIVE); PH,URINE 6.5 PH (5.0-7.5); PROTEIN,URINE NEGATIVE (NEGATIVE); UROBILINOGEN,URINE 0.2 (NORMAL) E.U./dL (NORMAL)
[2020-06-15 12:26] LABS: CLARITY,URINE HAZY (CLEAR); HCG UR QUAL NEGATIVE
[2020-06-15 12:29] LABS: BASOPHILS % (AUTO) 0.3 %; EOSINOPHILS # (AUTO) 0.2 10^3/uL (0.0-0.7); EOSINOPHILS % (AUTO) 1.6 %; HCT - HEMATOCRIT 44.4 % (37.0-47.0); HGB - HEMOGLOBIN 14.3 g/dL (12.0-16.0); LYMPHOCYTES # (AUTO) 3.4 10^3/uL (1.5-3.5); LYMPHOCYTES % (AUTO) 36.1 %; MEAN CORPUSCULAR HEMOGLOBIN 26.7 pg (27.0-31.0); MEAN CORPUSCULAR HGB CONC 32.2 g/dL (32.0-36.0); MEAN PLATELET VOLUME 9.9 fL (7.9-10.8); MONOCYTES # (AUTO) 0.4 10^3/uL (0.0-1.0); MONOCYTES % (AUTO) 4.5 %; NEUTROPHILS # (AUTO) 5.5 10^3/uL (1.5-6.6); NEUTROPHILS % (AUTO) 57.2 %; PLT - PLATELET COUNT 369 10^3/uL (130-450); RED BLOOD COUNT 5.35 10^6/uL (4.20-5.40); RED CELL DISTRIBUTION WIDTH 14.5 % (12.0-15.0); WHITE BLOOD COUNT 9.5 x10^3/uL (4.8-10.8)
[2020-06-15] MEDS ORDERED: ONDANSETRON 4 MG/2 ML VIAL ONE (12:32)
[2020-06-15 12:38] LABS: BACTERIA,URINE Many /HPF (None Seen); RBC,URINE None Seen /HPF (0-5); SQUAMOUS EPITHELIAL CELL,UR MOD Squamous (<= Few); WBC,URINE 0-3 /HPF (0-5)
[2020-06-15 12:43] LABS: BILIRUBIN,TOTAL 0.5 mg/dL (0.2-1.0); CALCIUM 9.2 mg/dL (8.5-10.3); CREATININE 0.8 mg/dL (0.4-1.0); POTASSIUM 3.9 mmol/L (3.5-5.0); TOTAL PROTEIN 8.1 g/dL (6.7-8.2)
== END 2020-06-15 13:15 | disposition home or self-care (01) ==
LOC: EDUNIT# → ED 11:10
DX: R11.0 Nausea (principal)
CPT/HCPCS: 36415; 80053; 81001; 81003; 81025; 83690; 85025; 87086; 93005; 96374; 99284

== ENCOUNTER 2020-07-07 13:54 | Outpatient (CLI) | payer OTHER ==
[2020-07-07 14:23] LABS: HCT - HEMATOCRIT 43.2 % (37.0-47.0); MEAN CORPUSCULAR HEMOGLOBIN 26.8 pg (27.0-31.0); MEAN CORPUSCULAR HGB CONC 32.4 g/dL (32.0-36.0); MEAN CORPUSCULAR VOLUME 82.8 fL (81.0-99.0); MEAN PLATELET VOLUME 9.7 fL (7.9-10.8); RED BLOOD COUNT 5.22 10^6/uL (4.20-5.40); RED CELL DISTRIBUTION WIDTH 14.5 % (12.0-15.0)
[2020-07-07 14:49] LABS: % IRON SATURATION 20 % (20-50); IRON 68 ug/dL (28-170); TOTAL IRON BINDING CAPACITY 333 ug/dL (250-450); TRANSFERRIN 238 mg/dL (192-382)
[2020-07-07 14:52] LABS: THYROID STIMULATING HORMONE 1.61 uIU/mL (0.34-5.60)
[2020-07-07 14:58] LABS: FERRITIN 67.5 ng/mL (11.0-306.8)
[2020-07-07 17:58] LABS: ESTIMATED AVERAGE GLUCOSE 111 mg/dL (70-100); HEMOGLOBIN A1c% 5.5 % (4.27-6.07)
== END 2020-07-07 13:55 | disposition home or self-care (01) ==
LOC: LAB 13:54
PROVIDERS: ATTEND Obstetrics & Gynecology
DX: E11.9 Type 2 diabetes mellitus without complications (principal); D50.0 Iron deficiency anemia secondary to blood loss (chronic); E22.1 Hyperprolactinemia; N92.0 Excessive and frequent menstruation with regular cycle
CPT/HCPCS: 36415; 82728; 83036; 83540; 84146; 84443; 84466; 85027

== ENCOUNTER 2020-07-15 11:41 | Outpatient (CLI) | payer OTHER | END 2020-07-15 11:42 | disposition critical access hospital (66) | LOC: EMS 11:41 | DX: R55 Syncope and collapse (principal) | CPT/HCPCS: A0425; A0429 ==

== ENCOUNTER 2020-07-15 12:10 | Emergency (ER) | payer OTHER ==
--- OUTSIDE RECORDS SUMMARY | 2020-07-15 12:18 | EXTERNAL MEDICAL SUMMARY RPT | Continuity of Care Document ---
:1985 Demographics Phone Unavailable Preferred Language Liberian Marital Status Unknown Yarsanism Affiliation Unknown Race Unknown Ethnic Group Unknown Author Organization [facility] Address [address] [place] [address] Phone Care Team Providers Name Role Phone Clerc Unavailable Unavailable Raish Unavailable Unavailable Medications date description facility [id number] Loratadine 10 MG Oral Capsule [facility] [id number] Loratadine 10 MG Oral Capsule [facility] Problems date description facility [id number] Left lower quadrant pain [facility] [id number] Iron deficiency anemia, unspecified Is [facility] [id number] Gastro-esophageal reflux disease withou t esophagitis [facility] [id number] Encounter for preprocedural laboratory examination [facility] [id number] Contact with and (suspected) exposure t o [address] [id number] Iron deficiency anemia, unspecified Is [facility] Procedures date description facility [id number] [facility] [id number] [facility] Vital Signs date measurement value source [id number] weight_standard 99.79 lb [id number] weight_metric 45.26 kg [id number] temperature_standard 97.9 F [id number] temperature_metric 36.61 C [id number] respiration_rate 16 /min [id number] height_standard 66 in [id number] height_metric 167.64 cm [id number] heart_rate 64 /min [id number] BP_systolic 111 mm[Hg] [id number] BP_diastolic 77 mm[Hg] [id number] BMI 35.5 kg/m2
--- NOTE | 2020-07-15 12:30 | ED Physician Documentation ---
PD HPI SYNCOPE - Stated complaint Stated Complaint: reaction to vaccine - Chief complaint Chief Complaint: Allergic Rx - History obtained from History obtained from: Patient - History of Present Illness Witnessed: Witnessed Timing - onset: How many minutes ago (45) Duration: Minutes (she noted onset of feeling weak and lightheaded about 5 minutes after getting [place] COVID vaccine and this worsened over next 20 minutes. She was still at vaccine site and was noted to have low BP. No rash, itch, swelling. Some dyspnea. Given Epi injection and felt better. 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 reaction versus vasovagal. Lsted few minutes and improved without intervention. She had had similar symptoms after dose of Cipro in the past and did get epipen with improvement. That was felt allergy.) Review of Systems Constitutional: denies: Fever, Chills Nose: denies: Rhinorrhea / runny nose, Congestion Throat: denies: Sore throat Respiratory: reports: Dyspnea. denies: Cough Neurologic: reports: Generalized weakness, Near syncope. 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 - Present Medications Home Medications: Ambulatory Orders Medication Instructions Recorded Confirmed No Known Home Medications 06/15/20 07/15/20 - Allergies Allergies/Adverse Reactions: Allergies Allergy/AdvReac Type Severity Reaction Status Date / Time ciprofloxacin Allergy Anaphylaxis Verified 07/15/20 18:18 fluoxetine [From Prozac] Allergy Edema Verified 07/15/20 18:18 hydralazine Allergy Edema Verified 07/15/20 18:18 shrimp AdvReac Edema Verified 07/15/20 18:18 - Social History Does the pt smoke?: No Smoking Status: Never smoker Does the pt drink ETOH?: Yes Does the pt have substance abuse?: No - Immunizations Immunizations are current?: Yes PD ED PE NORMAL - Vitals Vital signs reviewed: Yes - General General: Alert and oriented X 3, No acute distress, Well developed/nourished - HEENT HEENT: Pharynx benign (no edema) - Neck Neck: Supple, no meningeal sign, No adenopathy - Cardiac Cardiac: RRR, No murmur - Respiratory Respiratory: Clear bilaterally - Abdomen Abdomen: Soft, Non tender - Derm Derm: Normal color, Warm and dry, No rash - Extremities Extremities: No edema, No calf tenderness / cord - Neuro Neuro: Alert and oriented X 3, No motor deficit, Normal speech Results - Vitals Vitals: Vital Signs - 24 hr 07/15/20 07/15/20 07/15/20 12:10 12:27 12:30 Temperature 36.2 C L Heart Rate 85 73 84 Respiratory 18 18 18 Rate Blood Pressure 131/107 H 142/77 H 141/74 H O2 Saturation 100 99 98 07/15/20 07/15/20 07/15/20 13:00 13:37 14:00 Temperature Heart Rate 80 69 54 L Respiratory 18 24 19 Rate Blood Pressure 131/58 H 113/74 111/68 O2 Saturation 100 100 100 Oxygen O2 Source Room air PD MEDICAL DECISION MAKING - ED course Complexity details: re-evaluated patient (still feeling okay after almost 2 hours. [place] able to discharge. ), considered differential (presume allergic reaction to vaccine since occurred with first one to less degree and also similar symptoms when had allergic reaction to Cipro abx orally. ), d/w patient Departure - Departure Disposition: 01 Home, Self Care Clinical Impression: Allergic reaction to vaccine Condition: Stable Record reviewed to determine appropriate education?: Yes Instructions: ED Allergic Reaction General Other Follow-Up: Nimco Garcia MD [Primary Care Provider] - Comments: Stay well-hydrated through the day today. You could use some cetirizine or Benadryl if you develop some itchiness type symptoms. Otherwise no particular treatment needed at this point. Return if generally worsened symptoms. Expect the typical vaccine symptoms of some achiness soreness and possibly low-grade fever for a couple of days. Discharge Date/Time: 07/15/20 14:11
[2020-07-15] MEDS ORDERED: DEXAMETHASONE 10 MG/ML VIAL IVP STA (12:48)
[2020-07-15] MEDS ORDERED: diphenhydrAMINE INJ 50 MG/ML VIAL IVP STA (12:48)
[2020-07-15] MEDS ORDERED: SODIUM CHLORIDE 0.9% 1,000 ML IV STA (12:48)
[2020-07-15 14:13] VITALS: BP 111/68
== END 2020-07-15 14:11 | disposition home or self-care (01) ==
LOC: EDUNIT# → ED 12:10
DX: T78.49XA Other allergy, initial encounter (principal); R53.1 Weakness; R42 Dizziness and giddiness; R06.00 Dyspnea, unspecified; Y84.8 Other medical procedures as the cause of abnormal reaction of the patient, or of later complication, without mention of misadventure at the time of the procedure

== ENCOUNTER 2020-07-15 17:48 | Outpatient (CLI) | payer OTHER | END 2020-07-15 17:49 | disposition critical access hospital (66) | LOC: EMS 17:48 | DX: R53.1 Weakness (principal); R20.0 Anesthesia of skin | CPT/HCPCS: A0425; A0427 ==

== ENCOUNTER 2020-07-15 17:58 | Observation (INO) | payer OTHER ==
--- OUTSIDE RECORDS SUMMARY | 2020-07-15 18:16 | EXTERNAL MEDICAL SUMMARY RPT | Continuity of Care Document ---
:1985 Demographics Phone Unavailable Preferred Language Faroese Marital Status Unknown Nondenominational Affiliation Unknown Race Unknown Ethnic Group Unknown Author Organization [facility] Address [address] [place] [address] Phone Care Team Providers Name Role Phone Clerc Unavailable Unavailable Raish Unavailable Unavailable Medications date description facility [id number] Loratadine 10 MG Oral Capsule [facility] [id number] Loratadine 10 MG Oral Capsule [facility] Problems date description facility [id number] Left lower quadrant pain [facility] al [id number] Iron deficiency anemia, unspecified Is [facility] [id number] Gastro-esophageal reflux disease withou t esophagitis [facility] [id number] Encounter for preprocedural laboratory examination [facility] [id number] Contact with and (suspected) exposure t o [address] [id number] Iron deficiency anemia, unspecified Is [facility] Procedures date description facility [id number] [facility] [id number] [facility] Vital Signs date measurement value source [id number] weight_standard 99.79 lb [id number] weight_metric 45.26 kg 65298988 temperature_standard 97.9 F 01953629 temperature_metric 36.61 C 55299403 respiration_rate 16 /min [id number] height_standard 66 in [id number] height_metric 167.64 cm 99895153 heart_rate 64 /min 84711321 BP_systolic 111 mm[Hg] 78758591 BP_diastolic 77 mm[Hg] 99013898 BMI 35.5 kg/m2
[2020-07-15] MEDS ORDERED: SODIUM CHLORIDE 0.9% 1,000 ML IV STA (18:21)
[2020-07-15 18:36] LABS: BASOPHILS % (AUTO) 0.1 %; HCT - HEMATOCRIT 42.7 % (37.0-47.0); LYMPHOCYTES # (AUTO) 1.7 10^3/uL (1.5-3.5); LYMPHOCYTES % (AUTO) 10.9 %; MEAN CORPUSCULAR HEMOGLOBIN 26.8 pg (27.0-31.0); MEAN CORPUSCULAR HGB CONC 32.8 g/dL (32.0-36.0); MEAN CORPUSCULAR VOLUME 81.6 fL (81.0-99.0); MONOCYTES # (AUTO) 0.2 10^3/uL (0.0-1.0); MONOCYTES % (AUTO) 1.1 %; NEUTROPHILS % (AUTO) 87.6 %; PLT - PLATELET COUNT 434 10^3/uL (130-450); RED BLOOD COUNT 5.23 10^6/uL (4.20-5.40); RED CELL DISTRIBUTION WIDTH 14.4 % (12.0-15.0); WHITE BLOOD COUNT 15.9 x10^3/uL (4.8-10.8)
[2020-07-15 18:49] LABS: ALBUMIN 4.1 g/dL (3.2-5.5); BILIRUBIN,TOTAL 0.4 mg/dL (0.2-1.0); CALCIUM 8.9 mg/dL (8.5-10.3); CREATININE 0.8 mg/dL (0.4-1.0); POTASSIUM 3.2 mmol/L (3.5-5.0); TOTAL PROTEIN 8.1 g/dL (6.7-8.2)
[2020-07-15] MEDS ORDERED: POTASSIUM CHLOR 10 MEQ/100 ML 10 MEQ/100 ML BAG IV STA (18:52)
[2020-07-15] MEDS: POTASSIUM CHLORIDE 20 MEQ TABLET PO STA ×2 (19:46→19:56)
--- NOTE | 2020-07-15 21:28 | ED Physician Documentation ---
History of Present Illness - Stated complaint Stated Complaint: VACCINE RX - Chief complaint Chief Complaint: Neuro - History obtained from History obtained from: Patient, EMS - History of Present Illness Timing: Today - Additonal information Additional information: 35-year-old female with a history of PTSD anxiety and depression has had her second Covid shot today. She had the Moderna vaccine and she had a bit of a reaction her first shot, but recovered readily. Today she had her second shot and felt numbness and weakness and came to the ED. She received decadron, epi and benadryl and felt improved and walked out of the department, went home, took a nap and when she awoke her symptoms returned worse with weakness and numbness. She feels like she is unable to move. The ambulance was summoned and she was transported and received epi and benadrly again but without improvement. She has had prior reactions to cipro, hydralazine and prozac. Review of Systems Constitutional: reports: Fatigue. denies: Fever Eyes: denies: Decreased vision Ears: denies: Ear pain Nose: denies: Rhinorrhea / runny nose, Congestion Throat: denies: Sore throat Cardiac: denies: Chest pain / pressure, Palpitations Respiratory: denies: Dyspnea, Cough GI: denies: Abdominal Pain, Nausea, Vomiting, Constipation, Diarrhea : denies: Dysuria, Frequency Skin: denies: Rash Musculoskeletal: denies: Neck pain, Back pain, Extremity pain Neurologic: reports: Generalized weakness, Numbness, Difficulty speaking. 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 - Present Medications Home Medications: Ambulatory Orders Medication Instructions Recorded Confirmed No Known Home Medications 06/15/20 07/15/20 - Allergies Allergies/Adverse Reactions: Allergies Allergy/AdvReac Type Severity Reaction Status Date / Time ciprofloxacin Allergy Anaphylaxis Verified 07/15/20 18:18 fluoxetine [From Prozac] Allergy Edema Verified 07/15/20 18:18 hydralazine Allergy Edema Verified 07/15/20 18:18 shrimp AdvReac Edema Verified 07/15/20 18:18 - Social History Does the pt smoke?: No Smoking Status: Never smoker Does the pt drink ETOH?: Yes Does the pt have substance abuse?: No - Immunizations Immunizations are current?: Yes PD ED PE NORMAL - Vitals Vital signs reviewed: Yes - General General: Alert and oriented X 3, Well developed/nourished, Other (The patient has a flattened affect and is laying motionless. Does little to attempt to move. ) - HEENT HEENT: Atraumatic, PERRL, EOMI - Neck Neck: Supple, no meningeal sign, No bony TTP - Cardiac Cardiac: RRR, No murmur - Respiratory Respiratory: No respiratory distress, Clear bilaterally - Abdomen Abdomen: Normal bowel sounds, Soft, Non tender, Non distended, No organomegaly - Back Back: No CVA TTP, No spinal TTP - Derm Derm: Normal color, Warm and dry, No rash - Extremities Extremities: No deformity, No edema - Neuro Neuro: Alert and oriented X 3, decal transferrer 2-12 intact, Normal speech, Other (weakness is global. She is able to sit up with assistance. subjective numbness. ) Eye Opening: Spontaneous Motor: Obeys Commands Verbal: Oriented GCS Score: 15 - Psych Psych: Normal mood, Other (affect is flat. ) Results - Vitals Vitals: Vital Signs - 24 hr 07/15/20 07/15/20 07/15/20 17:59 19:42 21:00 Temperature 36.4 C L Heart Rate 108 H 97 72 Respiratory 16 29 H 18 Rate Blood Pressure 143/74 H 134/77 H 118/69 O2 Saturation 97 100 96 07/15/20 07/16/20 23:00 01:00 Temperature Heart Rate 76 74 Respiratory 18 18 Rate Blood Pressure 117/67 121/74 O2 Saturation 99 98 Oxygen O2 Source Room air - Labs Labs: Laboratory Tests 07/15/20 07/15/20 07/15/20 18:31 18:31 18:31 WBC 15.9 H RBC 5.23 Hgb 14.0 Hct 42.7 MCV 81.6 MCH 26.8 L MCHC 32.8 RDW 14.4 Plt Count 434 MPV 10.0 Neut # (Auto) 14.0 H Lymph # (Auto) 1.7 [place] # (Auto) 0.2 Eos # (Auto) 0.0 Baso # (Auto) 0.0 Absolute Nucleated RBC 0.00 Nucleated RBC % 0.0 Sodium 139 Potassium 3.2 L Chloride 107 Carbon Dioxide 21 Anion Gap 11.0 BUN 13 Creatinine 0.8 Estimated GFR (MDRD) 81 L Glucose 235 H Lactic Acid 2.5 H Calcium 8.9 Total Bilirubin 0.4 AST 21 ALT 29 Alkaline Phosphatase 80 Total Protein 8.1 Albumin 4.1 Globulin 4.0 Albumin/Globulin Ratio 1.0 Lipase 38 Nasal Adenovirus (PCR) Nasal B. parapertussis DNA (PCR) Nasal Coronavir 229E PCR Nasal Coronavir HKU1 PCR Nasal Coronavir NL63 PCR Nasal Coronavir OC43 PCR Nasal Enterovir/Rhinovir PCR Nasal Influenza B PCR Nasal Influenza A PCR Nasal Parainfluen 1 PCR Nasal Parainfluen 2 PCR Nasal Parainfluen 3 PCR Nasal Parainfluen 4 PCR Nasal RSV (PCR) Nasal B.pertussis DNA PCR Nasal C.pneumoniae (PCR) Ronen Human Metapneumo PCR Nasal M.pneumoniae (PCR) Nasal SARS-CoV-2 (PCR) 07/15/20 22:40 WBC RBC Hgb Hct MCV MCH MCHC RDW Plt Count MPV Neut # (Auto) Lymph # (Auto) [place] # (Auto) Eos # (Auto) Baso # (Auto) Absolute Nucleated RBC Nucleated RBC % Sodium Potassium Chloride Carbon Dioxide Anion Gap BUN Creatinine Estimated GFR (MDRD) Glucose Lactic Acid Calcium Total Bilirubin AST ALT Alkaline Phosphatase Total Protein Albumin Globulin Albumin/Globulin Ratio Lipase Nasal Adenovirus (PCR) NOT DETECTED Nasal B. parapertussis DNA (PCR) NOT DETECTED Nasal Coronavir 229E PCR NOT DETECTED Nasal Coronavir HKU1 PCR NOT DETECTED Nasal Coronavir NL63 PCR NOT DETECTED Nasal Coronavir OC43 PCR NOT DETECTED Nasal Enterovir/Rhinovir PCR NOT DETECTED Nasal Influenza B PCR NOT DETECTED Nasal Influenza A PCR NOT DETECTED Nasal Parainfluen 1 PCR NOT DETECTED Nasal Parainfluen 2 PCR NOT DETECTED Nasal Parainfluen 3 PCR NOT DETECTED Nasal Parainfluen 4 PCR NOT DETECTED Nasal RSV (PCR) NOT DETECTED Nasal B.pertussis DNA PCR NOT DETECTED Nasal C.pneumoniae (PCR) NOT DETECTED Ronen Human Metapneumo PCR NOT DETECTED Nasal M.pneumoniae (PCR) NOT DETECTED Nasal SARS-CoV-2 (PCR) NOT DETECTED - Rads (name of study) CT head without Radiology: Prelim report reviewed PD MEDICAL DECISION MAKING - ED course Complexity details: reviewed old records, reviewed results, re-evaluated patient, considered differential, d/w patient ED course: 35-year-old female with history of PTSD anxiety depression and prior anaphylactic reactions to medications has had her second Covid shot today with a Moderna vaccine and she appears to have had a reaction to this with weakness and numbness. She is been treated in the emergency department earlier in the day and released she has come back with symptoms. She did not have improvement with a second round of epinephrine and Benadryl. She does have some improvement in the emergency department in general but continues to be weak and has undulation of her symptoms. Symptoms whether hysterical or real will need supportive care. I have reviewed the up-to-date and found no specific mention of global weakness and numbness. I did consider thromboembolic event as a possibility but this again is not been shown with the Moderna a vaccine. We did do a screening CT of the head without findings. During her stay here she develops a decrease in resting motor tone on the right side of her face. I have contacted our teletypesetter operator Dr. Huang and he has agreed to admit the patient to the hospital for supportive care. The patient continues to be symptomatic 6 hours into her emergency department visit. The patient and her are concerned with the level of this reaction that she may need more aggressive care at an advanced center and ask about the potential for transfer. We attempted to transfer the patient to [facility] in [place] and to [facility] in [place] and both of those facilities were full. I then consulted the neurologist at [facility] and spoke to Dr. 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 He indicated that MRI imaging would not likely impact treatment. Departure - Departure Disposition: ED Place in Observation Clinical Impression: Vaccine reaction Qualifiers: Encounter type: initial encounter Qualified Code(s): T50.Z95A - Adverse effect of other vaccines and biological substances, initial encounter Discharge Date/Time: 07/16/20 02:00
[2020-07-15] MEDS ORDERED: POTASSIUM CHLOR 10 MEQ/100 ML 10 MEQ/100 ML BAG IV ONE (21:46)
[2020-07-15] MEDS ORDERED: IOPAMIDOL-300 100 ML VIAL ONE (21:49)
[2020-07-15 23:35] LABS: B. PARAPERTUSSIS- RESP PCR PAN NOT DETECTED; B. PERTUSSIS- RESP PCR PANEL NOT DETECTED; C. PNEUMONIAE- RESP PCR PANEL NOT DETECTED; CORONAVIRUS 229E-RESP PCR NOT DETECTED; CORONAVIRUS HKU1-RESP PCR NOT DETECTED; CORONAVIRUS NL63-RESP PCR NOT DETECTED; CORONAVIRUS OC43-RESP PCR NOT DETECTED; HUMAN METAPNEUMOVIRUS NOT DETECTED; INFLUENZA A- RESP PCR PANEL NOT DETECTED; INFLUENZA B - RESP PCR PANEL NOT DETECTED; M. PNEUMONIAE- RESP PCR PANEL NOT DETECTED; PARAINFLUENZA VIRUS 1 NOT DETECTED; PARAINFLUENZA VIRUS 2 NOT DETECTED; PARAINFLUENZA VIRUS 3 NOT DETECTED; PARAINFLUENZA VIRUS 4 NOT DETECTED; RHINOVIRUS/ENTEROVIRUS NOT DETECTED; RSV- RESP PCR PANEL NOT DETECTED; SARS-CoV-2 -RESP PCR PANEL NOT DETECTED
--- NOTE | 2020-07-16 00:53 | HISTORY & PHYSICAL EXAMINATION ---
Chief Complaint - Chief Complaint Chief Complaint: Weakness History of Present Illness - Admitted From Admitted From:: ED - History Obtained From Records Reviewed: ED History obtained from: , ED Physician, and some from patient Exam Limitations: Pt lethargy - History of Present Illness HPI Comment/Other: Patient is a 35-year-old female with a past medical history of depression, previous allergic reaction to Cipro, and hydroxyzine and Prozac, obesity, who presented to the emergency room on the day of her second dose of Moderns Covid vaccine.Patient states that 10 minutes or so after the vaccine, she started to h ave generalized weakness. This led to assessments by nursing and the weakness somewhat improved but she was observed a bit longer after which the episode repeated to more severe diffuse weakness and generalized numbness prompting the RN at the vaccination center to consider allergic reaction and providing her with a dose of epinephrine. Patient was then transported by ambulance to the emergency department by which point symptoms had improved. Treatment deceived a dose of Decadron, epinephrine and Benadryl. She went home, took a nap, and after starting to feel better couple of hours later the symptoms returned this time more significant. She was so weak that she was unable to ambulate so called paramedics to bring her to the emergency department. In the ED, she was found to be very lethargic, weak, requiring assistance to even reposition in bed. However the symptoms were undulating, and at times she was able to with assistance ambulate to the bathroom. She was kept in the emergency department for about 6 hours during which time the symptoms waxed and waned but by the end of this course persisted for a couple of hours to the extent that discharge no longer seemed feasible.Patient underwent a CT scan of the head which was unremarkable as well as a chest x-ray as the patient would periodically complain of shortness of breath that would also resolve with time, and the chest x-ray was also unremarkable. Lab work was only remarkable for mild leukocytosis of 15,000, potassium of 3.2,Lactic acid of 2.5, and a blood sugar of 235. Upon my arrival to examine the patient for admission, patient was noted to have a very slight, but noticeable right-sided facial droop, asymmetry which the states was more pronounced than it was before. Other than this, she had no asymmetric weakness, no asymmetric numbness, or no other focal neurological deficit on a full neurological exam. At this point I discussed with the and the patient that it is unclear exactly what the etiology is but it appears to be a reaction to the vaccination though I could not absolutely rule out a stroke without access to an MRI on the weekend. Having discussed the options including the risks and benefits of continued observation in this hospital versus transfer, patient and requested consideration for transfer. This was discussed with Dr. Peguero in the emergency department who kindly offered an attempt to transfer the patient to facility with MRI and neurological consultation capabilities. However,[facility] in [place] and [facility] in [place] were both full with no capacity, and ultimately Dr. 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 He suggested that an MRI would not necessarily be helpful at this point nor impact our treatment options and therefore would be safe to defer.At this point, I excepted patient for hospital admission. 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 - Family & Social History Family History Comment/Other: Patient Denies Living Situation: With spouse/s.o., With family - Substance History Use: Uses substance without health or social issues: NONE Meds/Allgy - Home Medications Home Medications: Ambulatory Orders Medication Instructions Recorded Confirmed No Known Home Medications 06/15/20 07/15/20 - Allergies Allergies/Adverse Reactions: Allergies Allergy/AdvReac Type Severity Reaction Status Date / Time ciprofloxacin Allergy Anaphylaxis Verified 07/15/20 18:18 fluoxetine [From Prozac] Allergy Edema Verified 07/15/20 18:18 hydralazine Allergy Edema Verified 07/15/20 18:18 shrimp AdvReac Edema Verified 07/15/20 18:18 Review of Systems - Constitutional Constitutional: reports: Fatigue, Weakness. denies: Fever, Diaphoresis - Eyes Eyes: denies: Pain, Blurred vision, Spots in vision - Cardiovascular Cariovascular: denies: Chest pain - Respiratory Respiratory: reports: SOB at rest, Pleuritic pain - Gastrointestinal Gastrointestinal: reports: Abdominal pain (Epigastric pain worse with deep breaths, comes and goes) - Genitourinary Genitourinary: reports: Dysuria - Musculoskeletal Musculoskeletal: reports: Muscle pain - Integumentary Integumentary: reports: Rash - Neurological Neurological: reports: General weakness, Numbness, Abnormal gait. denies: Focal weakness, Headache, Dizziness, Memory problems, Pre-existing deficit, Seizures, Incoordination, Slurred speech Prior Level of Functionality: Fully Independent Exam - Vital Signs Reviewed Vital Signs: Yes Vital Signs: Vital Signs x48h Temp Pulse Resp BP Pulse Ox 07/15/20 23:00 76 18 117/67 99 07/15/20 21:00 72 18 118/69 96 07/15/20 19:42 97 29 H 134/77 H 100 07/15/20 17:59 36.4 C L 108 H 16 143/74 H 97 - Physical Exam General Appearance: positive: Lethargic Eyes Bilateral: positive: PERRL, EOMI, Other (Mild bilateral blepharitis slightly worse on the left) Neck: positive: Nml inspection Respiratory: positive: Chest non-tender, No respiratory distress, Breath sounds nml Cardiovascular: positive: Regular rate & rhythm, No murmur, No gallop Peripheral Pulses: positive: 2+ Abdomen: positive: Other (Mild epigastric tenderness) Back: positive: Nml inspection Skin: positive: Color nml, No rash, Warm Extremities: positive: Non-tender, Nml appearance, No pedal edema Neurologic/Psychiatric: positive: Oriented x3, CN's nml (2-12), Facial droop. negative: Slurred/abnml speech (Mild right-sided facial asymmetry/facial droop without dysarthria, and with no other focal neurological deficits of the head and neck appreciated on exam) Sepsis Event Note (H) - Evaluation Current Stage of Sepsis: Ruled out Conclusion/Plan - Problem List (1) Weakness Conclusion/Plan: Underlying etiology uncertain No focal neurological deficit other than very mild right sided facial weakness, not consistent with CVA especially in a low risk patient of this age group not known to have any history of stroke, family history of stroke, or atherosclerotic disease Furthermore, given that numbness is globally distributed, this also does not follow with CVA etiology Agree with neurology consult from [facility], Thrasher's palsy is the most likely explanation though this is certainly an exacerbated case as it does not typically produce such profound global weakness Cannot rule out possible psychogenic factors as patient apparently had significant improvement once she was told updated information that neurology did not have concerns for stroke, as well as significant undulation of symptoms noted during ER course Treat as Thrasher's palsy and follow clinically with serial exams, PT/OT eval's Pending clinical course, can either discharge home or if necessary to expand work-up consider Follow-up neurological consult (2) Thrasher's palsy Conclusion/Plan: As above, probable component of Thrasher's palsy Treat with prednisone if able to tolerate p.o., otherwise methylprednisolone IV Would like to use minimum dose possible to avoid suppression of vaccination efficacy Consider follow-up neurological consultation if symptoms do not improve in 24 to 48 hours (3) Vaccine reaction Conclusion/Plan: Per patient and she had a similar reaction after receiving Cipro as well as Prozac and hydroxyzine on previous hospital admission Apparently has a history of allergic reactions similar in manifestation No evidence of anaphylaxis No indication at this point for epinephrine, Benadryl, no concern for airway protection Continue steroids as above Qualifiers: Encounter type: initial encounter Qualified Code(s): T50.Z95A - Adverse effect of other vaccines and biological substances, initial encounter (5) Leukocytosis Conclusion/Plan: WBC elevated in ED without evidence of acute infection Likely secondary to vaccination response Continue to monitor and trend labs (7) Elevated lactic acid level Conclusion/Plan: Mild elevation of lactic acid probable dehydration versus vaccination effect Repeat labs in a.m. - Lab Results Fish Bones: 07/16/20 05:09 07/16/20 05:09 - Diagnostic Imaging Results Diagnostic Imaging Results: positive: Final report reviewed Core Measures - Anticipated LOS I expect patient to be DC'd or transferred within 96 hours.: Yes - DVT/VTE - Prophylaxis VTE/DVT Device ordered at admit?: Yes
[2020-07-16] MEDS ORDERED: ONDANSETRON ODT 4 MG TABLET TL PRN (01:37)
[2020-07-16] MEDS ORDERED: HYDROcod/ACETAM 5/325 MG TABLET PO PRN (01:37)
[2020-07-16] MEDS ORDERED: POTASSIUM CHLORIDE 20 MEQ TABLET PO STA (01:40)
--- OUTSIDE RECORDS SUMMARY | 2020-07-16 02:10 | EXTERNAL MEDICAL SUMMARY RPT | Continuity of Care Document ---
:1985 Demographics Phone Unavailable Preferred Language Samoan Marital Status Unknown Orthodoxy Affiliation Unknown Race Unknown Ethnic Group Unknown Author Organization [place] Address [address] [place] [address] Phone Care Team Providers Name Role Phone Clerc Unavailable Unavailable Raish Unavailable Unavailable Medications date description facility [id number] Loratadine 10 MG Oral Capsule [facility] [id number] Loratadine 10 MG Oral Capsule [facility] Problems date description facility [id number] Left lower quadrant pain [facility] al [id number] Iron deficiency anemia, unspecified [facility] [id number] Gastro-esophageal reflux disease withou t esophagitis [facility] [id number] Encounter for preprocedural laboratory examination [facility] [id number] Contact with and (suspected) exposure t o [address] [id number] Iron deficiency anemia, unspecified [facility] Procedures date description facility [id number] [facility] [id number] [facility] Vital Signs date measurement value source [id number] weight_standard 99.79 lb [id number] weight_metric 45.26 kg [id number] temperature_standard 97.9 F [id number] temperature_metric 36.61 C [id number] respiration_rate 16 /min [id number] height_standard 66 in [id number] height_metric 167.64 cm [id number] heart_rate 64 /min [id number] BP_systolic 111 mm[Hg] [id number] BP_diastolic 77 mm[Hg] [id number] BMI 35.5 kg/m2
[2020-07-16] MEDS ORDERED: PANTOPRAZOLE 40 MG VIAL IVP SCH (03:04)
[2020-07-16] MEDS: KETOROLAC 30 MG/ML VIAL IVP PRN ×3 (03:22→23:42)
[2020-07-16] MEDS: SODIUM CHLORIDE FLUSH 0.9% 10 ML SYRINGE IVP PRN ×2 (03:22→03:41)
[2020-07-16 05:21] LABS: HCT - HEMATOCRIT 37.3 % (37.0-47.0); HGB - HEMOGLOBIN 12.3 g/dL (12.0-16.0); MEAN CORPUSCULAR HEMOGLOBIN 26.9 pg (27.0-31.0); MEAN CORPUSCULAR VOLUME 81.6 fL (81.0-99.0); MEAN PLATELET VOLUME 9.8 fL (7.9-10.8); RED BLOOD COUNT 4.57 10^6/uL (4.20-5.40); RED CELL DISTRIBUTION WIDTH 14.4 % (12.0-15.0); WHITE BLOOD COUNT 13.8 x10^3/uL (4.8-10.8)
[2020-07-16 05:31] LABS: CALCIUM 8.2 mg/dL (8.5-10.3); CREATININE 0.6 mg/dL (0.4-1.0); POTASSIUM 3.7 mmol/L (3.5-5.0)
[2020-07-16] MEDS: methylPREDNISolone SUCCINATE 40 MG/ML VIAL IVP SCH ×3 (05:56→21:29)
--- NOTE | 2020-07-16 08:12 | CT Report ---
PROCEDURE: HEAD WO INDICATIONS: altered LOC/weakness TECHNIQUE: Noncontrast 4.5 mm thick angled axial sections acquired from the foramen magnum to the vertex. For r adiation dose reduction, the following was used: automated exposure control, adjustment of mA and/or kV according to patient size. COMPARISON: Correlation is made with prior brain MRI, 08/31/2019 FINDINGS: Image quality: There is streak artifact seen through the skull base. CSF spaces: Basal cisterns are patent. No extra-axial fluid collections. Ventricles are normal in size and shape. Brain: No midline shift. No intracranial masses or hemorrhage. Clarke-white matter interface is norm al. Skull and face: Calvarium and visualized facial bones are intact, without suspicious lesions. Sinuses: Visualized sinuses and mastoids are clear. IMPRESSION: Normal noncontrast head CT. Note: No significant discrepancy from the preliminary report. Reviewed by: Manuel Rust MD on 07/16/2020 7:10 AM [facility] Approved by: Manuel Rust MD on 07/16/2020 7:10 AM [facility]RON[facility] Station ID: [id number]
[2020-07-16] MEDS ORDERED: predniSONE 20 MG TABLET PO SCH (09:00)
[2020-07-16] MEDS: SODIUM CHLORIDE FLUSH 0.9% 10 ML SYRINGE IVP SCH ×3 (09:22→23:47)
--- NOTE | 2020-07-16 10:06 | PROVIDER PROGRESS NOTE ---
Hospitalist Cross-cover Note - Cross-Cover Note Cross-Cover Note: This is a courtesy follow-up to the patient's admission this morning around 1:30 AM. Patient was seen shortly after admission. was at bedside. She was talking in full sentences and able to move all extremities. She had a slight weakness and muscle strength on the right side. There was no facial droop. She was able to open and close her eyes without any difficulties. Eyebrows were symmetrical. There was no loss of nasolabial folds. The weakness the patient experience is transient and lasts anywhere between half an hour to an hour and a half when it comes on. About an hour after my initial evaluation I was called back to the patient's room because she was having another episode. During this episode she appeared to have mild facial droop on the right side. She could not move any of her extremities. Her vitals were stable. She had just been given a dose how are you prednisone 60 mg p.o. x1. An hour prior she had complained of chest pain for which an EKG showed normal sinus rhythm and troponin was normal. Plan would be to continue monitoring her for the next 24 hours and continue Prednisolone administration. If symptoms persist after this time of observation, I will reach out to neurology again for further recommendations. On the differential also includes TIA.
[2020-07-16] MEDS ORDERED: CARBOXYMETHYLCELLULOSE OPHTH DROPS EACHEYE PRN (13:17)
[2020-07-16] MEDS: CARBOXYMETHYLCELLULOSE OPHTH DROPS EACHEYE PRN (14:54)
[2020-07-16] MEDS: SODIUM CHLORIDE 0.9% 1,000 ML IV SCH (18:25)
[2020-07-16] MEDS: ACETAMINOPHEN 325 MG TABLET PO PRN (21:27)
[2020-07-16] MEDS ORDERED: BENZOCAINE/MENTHOL LOZENGE MM PRN (21:29)
[2020-07-17] MEDS ORDERED: PHENOL THROAT SPRAY 177 ML MM PRN (04:12)
[2020-07-17] MEDS: SODIUM CHLORIDE 0.9% 1,000 ML IV SCH ×2 (04:30→15:31)
[2020-07-17] MEDS: LORazepam 2 MG/ML VIAL IVP PRN ×2 (04:32→19:43)
[2020-07-17 05:17] LABS: HCT - HEMATOCRIT 38.4 % (37.0-47.0); HGB - HEMOGLOBIN 12.2 g/dL (12.0-16.0); MEAN CORPUSCULAR HEMOGLOBIN 26.6 pg (27.0-31.0); MEAN CORPUSCULAR HGB CONC 31.8 g/dL (32.0-36.0); MEAN CORPUSCULAR VOLUME 83.8 fL (81.0-99.0); MEAN PLATELET VOLUME 10.1 fL (7.9-10.8); RED BLOOD COUNT 4.58 10^6/uL (4.20-5.40); RED CELL DISTRIBUTION WIDTH 14.5 % (12.0-15.0); WHITE BLOOD COUNT 13.7 x10^3/uL (4.8-10.8)
[2020-07-17 05:33] LABS: CALCIUM 8.3 mg/dL (8.5-10.3); CREATININE 0.6 mg/dL (0.4-1.0); POTASSIUM 3.6 mmol/L (3.5-5.0)
[2020-07-17] MEDS: PANTOPRAZOLE 40 MG VIAL IVP SCH (06:44)
[2020-07-17] MEDS: SODIUM CHLORIDE FLUSH 0.9% 10 ML SYRINGE IVP SCH ×2 (08:58→16:09)
[2020-07-17] MEDS: methylPREDNISolone SUCCINATE 40 MG/ML VIAL IVP SCH ×2 (08:59→20:15)
[2020-07-17] MEDS: ACETAMINOPHEN 325 MG TABLET PO PRN (16:41)
--- NOTE | 2020-07-17 17:07 | PROVIDER PROGRESS NOTE ---
Assessment/Plan - Problem List (1) Weakness Assessment/Plan: Patient is on methylprednisolone. The frequency, duration and intensity of the intermittent generalized weakness episodes has decreased. [facility] Jayden De La Garza who advised that her symptoms of generalized weakness and right facial droop does not fit the pattern for CVA or [place]. He agrees with the plan to get an MRI of the brain tomorrow. He recommends continue to encourage the patient in light of improvement of her symptoms. (2) Thrasher's palsy Assessment/Plan: Continue methylprednisolone. Artificial tears as needed (3) Leukocytosis Assessment/Plan: Suspect this is reactive. The patient has been afebrile throughout her stay. WBC is improved from 15.9 at admission to 13.7 today We will continue to monitor (4) Vaccine reaction Qualifiers: Encounter type: initial encounter Qualified Code(s): T50.Z95A - Adverse effect of other vaccines and biological substances, initial encounter Assessment/Plan: We will continue to monitor. - Current Meds Current Meds: Current Medications Generic Name Dose Route Start Last Admin Trade Name Juan Albertoq PRN Reason Stop Dose Admin Acetaminophen 650 mg 07/16/20 01:37 07/17/20 16:41 Acetaminophen 325 Mg Tablet PO 650 mg Q4HR PRN Administration Pain 1 to 4 Carboxymethylcellulose 1 drops 07/16/20 13:21 07/16/20 14:54 Carboxymethylcellulose Ophth Drops EACHEYE 1 drops Q4H PRN Administration Dry Eye Sodium Chloride 1,000 mls @ 100 mls/hr 07/16/20 19:00 07/17/20 15:31 Normal Saline 0.9% IV 100 mls/hr .Q10H ROSALIO Administration Ketorolac Tromethamine 30 mg 07/16/20 03:03 07/16/20 23:42 Ketorolac 30 Mg/Ml Vial IVP 07/21/20 03:02 30 mg Q6HR PRN Administration PAIN Lorazepam 0.5 mg 07/16/20 10:07 07/17/20 04:32 Lorazepam 2 Mg/Ml Vial IVP 0.5 mg Q6H PRN Administration Anxiety Methylprednisolone 40 mg 07/16/20 21:00 07/17/20 08:59 Methylprednisolone Succinate 40 Mg/Ml Vial IVP 40 mg BID ROSALIO Administration Pantoprazole Sodium 40 mg 07/17/20 07:00 07/17/20 06:44 Pantoprazole 40 Mg Vial IVP 40 mg QDAC ROSALIO Administration Sodium Chloride 10 ml 07/16/20 01:37 07/16/20 03:41 Sodium Chloride Flush 0.9% 10 Ml Syringe IVP 10 ml PRN PRN Administration NEEDED PER PROVIDER ORDERS Sodium Chloride 10 ml 07/16/20 09:00 07/17/20 16:09 Sodium Chloride Flush 0.9% 10 Ml Syringe IVP Not Given 0100,0900,1700 ROSALIO - Lab Result Fish Bone Diagrams: 07/17/20 04:56 07/17/20 04:56 - Additional Planning My Orders: My Active Orders 07/16/20 19:00 Sodium Chloride 0.9% [Normal Saline 0.9%] 1,000 ml IV 100 mls/hr Subjective - Subjective Patient Reports: Other (Patient continues to have intermittent episodes of generalized weakness and right facial droop. However the frequency, duration and intensity has been increasingly shorter/ less) Objective Vital Signs: Vital Signs - 24 hr 07/16/20 07/16/20 07/17/20 23:00 23:46 04:00 Temperature 36.8 C 36.7 C 36.7 C Heart Rate [ 66 58 L 70 Brachial] Respiratory 20 16 16 Rate Blood Pressure 102/49 L 100/54 L 101/68 [Left Brachial artery] O2 Saturation 95 98 98 07/17/20 07/17/20 07/17/20 07:48 10:25 13:05 Temperature 36.5 C 36.5 C Heart Rate [ 73 70 81 Brachial] Respiratory 18 22 16 Rate Blood Pressure 110/56 L 133/83 H 139/86 H [Left Brachial artery] O2 Saturation 94 98 100 07/17/20 16:00 Temperature 36.4 C L Heart Rate [ 59 L Brachial] Respiratory 19 Rate Blood Pressure 111/70 [Left Brachial artery] O2 Saturation 97 Oxygen O2 Source Room air I&O (Last 24 Hrs): Intake and Output Totals x24h 07/15/20 07/16/20 07/17/20 23:59 23:59 23:59 Intake Total 1100 1060 2470.001 Output Total 1825 Balance 1100 -765 2470.001 General: Alert, Oriented x3, Cooperative, Mild distress HEENT: PERRLA, EOMI Neck: Supple, No JVD Neuro: Alert, Disoriented, Oriented Times 3, Other (intermittent generalized weakness, intermittent right facial droop) Cardiovascular: Regular rate Respiratory: Chest non-tender, No respiratory distress, Breath sounds nml Abdomen: Normal bowel sounds, Soft, No tenderness Extremities: No clubbing, No cyanosis, No edema, No tenderness/swelling Skin: No rashes, No breakdown, No significant lesion - Results Results: Laboratory Results WBC 13.7 x10^3/uL (4.8-10.8) H 07/17/20 04:56 RBC 4.58 10^6/uL (4.20-5.40) 07/17/20 04:56 Hgb 12.2 g/dL (12.0-16.0) 07/17/20 04:56 Hct 38.4 % (37.0-47.0) 07/17/20 04:56 MCV 83.8 fL (81.0-99.0) 07/17/20 04:56 MCH 26.6 pg (27.0-31.0) L 07/17/20 04:56 MCHC 31.8 g/dL (32.0-36.0) L 07/17/20 04:56 RDW 14.5 % (12.0-15.0) 07/17/20 04:56 Plt Count 362 10^3/uL (130-450) 07/17/20 04:56 MPV 10.1 fL (7.9-10.8) 07/17/20 04:56 Neut # (Auto) 14.0 10^3/uL (1.5-6.6) H 07/15/20 18:31 Lymph # (Auto) 1.7 10^3/uL (1.5-3.5) 07/15/20 18:31 Rincon # (Auto) 0.2 10^3/uL (0.0-1.0) 07/15/20 18:31 Eos # (Auto) 0.0 10^3/uL (0.0-0.7) 07/15/20 18:31 Baso # (Auto) 0.0 10^3/uL (0.0-0.1) 07/15/20 18:31 Absolute Nucleated RBC 0.00 x10^3/uL 07/15/20 18:31 Nucleated RBC % 0.0 /100WBC 07/15/20 18:31 Sodium 139 mmol/L (135-145) 07/17/20 04:56 Potassium 3.6 mmol/L (3.5-5.0) 07/17/20 04:56 Chloride 109 mmol/L (101-111) 07/17/20 04:56 Carbon Dioxide 21 mmol/L (21-32) 07/17/20 04:56 Anion Gap 9.0 (6-13) 07/17/20 04:56 BUN 13 mg/dL (6-20) 07/17/20 04:56 Creatinine 0.6 mg/dL (0.4-1.0) 07/17/20 04:56 Estimated GFR (MDRD) 112 (>89) 07/17/20 04:56 Glucose 133 mg/dL (70-100) H 07/17/20 04:56 Lactic Acid 0.6 mmol/L (0.5-2.2) 07/16/20 07:02 Calcium 8.3 mg/dL (8.5-10.3) L 07/17/20 04:56 Total Bilirubin 0.4 mg/dL (0.2-1.0) 07/15/20 18:31 AST 21 IU/L (10-42) 07/15/20 18:31 ALT 29 IU/L (10-60) 07/15/20 18:31 Alkaline Phosphatase 80 IU/L (42-121) 07/15/20 18:31 Troponin I High Sens 2.6 ng/L (2.3-14.8) 07/16/20 10:17 Total Protein 8.1 g/dL (6.7-8.2) 07/15/20 18:31 Albumin 4.1 g/dL (3.2-5.5) 07/15/20 18:31 Globulin 4.0 g/dL (2.1-4.2) 07/15/20 18:31 Albumin/Globulin Ratio 1.0 (1.0-2.2) 07/15/20 18:31 Lipase 38 U/L (22-51) 07/15/20 18:31 Nasal Adenovirus (PCR) NOT DETECTED 07/15/20 22:40 Nasal B. parapertussis DNA (PCR) NOT DETECTED 07/15/20 22:40 Nasal Coronavir 229E PCR NOT DETECTED 07/15/20 22:40 Nasal Coronavir HKU1 PCR NOT DETECTED 07/15/20 22:40 Nasal Coronavir NL63 PCR NOT DETECTED 07/15/20 22:40 Nasal Coronavir OC43 PCR NOT DETECTED 07/15/20 22:40 Nasal Enterovir/Rhinovir PCR NOT DETECTED 07/15/20 22:40 Nasal Influenza B PCR NOT DETECTED 07/15/20 22:40 Nasal Influenza A PCR NOT DETECTED 07/15/20 22:40 Nasal Parainfluen 1 PCR NOT DETECTED 07/15/20 22:40 Nasal Parainfluen 2 PCR NOT DETECTED 07/15/20 22:40 Nasal Parainfluen 3 PCR NOT DETECTED 07/15/20 22:40 Nasal Parainfluen 4 PCR NOT DETECTED 07/15/20 22:40 Nasal RSV (PCR) NOT DETECTED 07/15/20 22:40 Nasal B.pertussis DNA PCR NOT DETECTED 07/15/20 22:40 Nasal C.pneumoniae (PCR) NOT DETECTED 07/15/20 22:40 Ronen Human Metapneumo PCR NOT DETECTED 07/15/20 22:40 Nasal M.pneumoniae (PCR) NOT DETECTED 07/15/20 22:40 Nasal SARS-CoV-2 (PCR) NOT DETECTED 07/15/20 22:40 Sepsis Event Note (H) - Evaluation Current Stage of Sepsis: Ruled out ABX Reporting Has patient been on IV antibiotics over the past 48 hours?: No
[2020-07-18] MEDS: CARBOXYMETHYLCELLULOSE OPHTH DROPS EACHEYE PRN (01:37)
[2020-07-18] MEDS: SODIUM CHLORIDE 0.9% 1,000 ML IV SCH ×3 (01:39→22:25)
[2020-07-18] MEDS: SODIUM CHLORIDE FLUSH 0.9% 10 ML SYRINGE IVP SCH ×3 (01:55→16:21)
[2020-07-18 05:52] LABS: HCT - HEMATOCRIT 36.6 % (37.0-47.0); HGB - HEMOGLOBIN 12.3 g/dL (12.0-16.0); MEAN CORPUSCULAR HEMOGLOBIN 27.6 pg (27.0-31.0); MEAN CORPUSCULAR HGB CONC 33.6 g/dL (32.0-36.0); MEAN CORPUSCULAR VOLUME 82.1 fL (81.0-99.0); MEAN PLATELET VOLUME 9.9 fL (7.9-10.8); RED BLOOD COUNT 4.46 10^6/uL (4.20-5.40); RED CELL DISTRIBUTION WIDTH 14.5 % (12.0-15.0)
[2020-07-18 05:58] LABS: CALCIUM 8.2 mg/dL (8.5-10.3); CREATININE 0.6 mg/dL (0.4-1.0); POTASSIUM 3.8 mmol/L (3.5-5.0)
[2020-07-18] MEDS: KETOROLAC 30 MG/ML VIAL IVP PRN ×2 (06:18→20:54)
[2020-07-18] MEDS: PANTOPRAZOLE 40 MG VIAL IVP SCH (06:24)
[2020-07-18] MEDS: SODIUM CHLORIDE FLUSH 0.9% 10 ML SYRINGE IVP PRN (06:31)
[2020-07-18] MEDS: methylPREDNISolone SUCCINATE 40 MG/ML VIAL IVP SCH (06:37)
[2020-07-18] MEDS: LORazepam 2 MG/ML VIAL IVP PRN (06:43)
--- NOTE | 2020-07-18 07:04 | PROVIDER PROGRESS NOTE ---
Solar Project Coordination Specialist Note - Solar Project Coordination Specialist Note Solar Project Coordination Specialist Note: I responded to a request for "staff assist", otherwise referred to as a rapid response at approximately 6:40 AM. This was called due to the patient having recurrent episodes of the presenting symptoms for which she is mended. Namely, this morning patient had couple of episodes of decreased alertness, generalized numbness, lower midsternal chest pain, also feeling cold, and somewhat new is now lower extremity shaking. Prior to my arrival the patient had received Toradol for the chest pain which had previously been helping. She had drifted out of alertness, requiring 30 to 60 seconds to respond to sternal rub and stimulation from nursing staff. Upon my arrival I found the patient to be lethargic but somewhat arousable. She was alert and oriented and able to respond to questions appropriately but with some difficulty and with a lethargic speech. There is no dysarthria, and very minute trace evidence of right facial asymmetry, consistent with the degree of asymmetry noticed on admission. The episode witnessed upon my arrival lasted approximately 6 to 7 minutes and she then improved and returned to baseline. I discussed my clinical impression with the patient's at the bedside, as well as Elvira herself, and several minutes after the resolution of the first episode, a second 1 recurred. Again withBilateral lower extremity shaking, decreased alertness, lack of response to sternal rub, with intermittent responsiveness only enough to c omplain of chest pain. This was also associated with decreased oxygen saturations to 88% on room air. She responded well to 2 L of oxygen supplementation. Of note, her heart rate was also noted to be somewhat bradycardic into the 46-50 range. At this time, I plan to check a prolactin level to help provide probability of atypical seizure disorder. I did discuss with the that we may consider increasing her Solu-Medrol dosing, possibly requesting transfer for EEG or further neurological work-up, as well as the predetermined plan for MRI later today. I will discuss the events and plan with the daytime physician coming on service now.
[2020-07-18] MEDS: ACETAMINOPHEN 325 MG TABLET PO PRN (11:45)
--- NOTE | 2020-07-18 12:57 | MRI Report ---
PROCEDURE: Brain W/O INDICATIONS: righ facial droop TECHNIQUE: Noncontrast axial T1 spin echo, axial T2 fast spin echo, sagittal and axial FLAIR, coronal T2 fast sp in echo, axial gradient echo, axial diffusion and ADC through the brain. COMPARISON: 08/31/2019. FINDINGS: Image quality: Mildly degraded by patient motion artifact. CSF Spaces: Basal cisterns are patent. No extra-axial fluid collections. Ventricles are normal in size and shape. Brain: No intracranial masses or hemorrhage. Clarke/white matter interface is normal. There is mild, diffuse cerebral volume loss. There are minimal periventricular and subcortical white matter chronic microvascular ischemic changes. Brainstem appears normal. Diffusion-weighted images demonstrate no acute ischemic insult. No chronic ischemic insults. Normal intravascular flow voids are present. Skull and face: Calvarium has normal marrow signal. Orbits appear normal. Sinuses: Sinuses and mastoids are clear. IMPRESSION: 1. No acute intracranial disease process. 2. No areas of acute or chronic infarction. 3. No abnormal internal mass or mass effect. 4. No intracranial hemorrhage. Reviewed by: Radha Monreal MD, PhD on 07/18/2020 12:56 PM PDT Approved by: Radha Monreal MD, PhD on 07/18/2020 12:56 PM PDT Station ID: [id number]
--- NOTE | 2020-07-18 18:13 | PROVIDER PROGRESS NOTE ---
Assessment/Plan - Problem List (1) Weakness Assessment/Plan: I spoke with Dr. Garcia Sherman (the patient's neurologist) with [facility] in [place], [place] at [phone] today. This is the 3rd neurologist we have been in contact with. 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 Extensive work up is likely to be negative. That this is likely due to a stressors and to constantly reassure the patient that she will get better. If she is safe to walk and vitals are stable, patient may be discharged to follow up with him in the outpatient setting. He also advised that i discontinue steroids. This has been done Prior to talking to Dr. Sherman I had discussed the possibility of transfer for higher level of care with the patient and her . They were agreeable to this. I have attempted to reach [facility] but there are no bed availabilities (3) Leukocytosis Assessment/Plan: Suspect this is reactive. The patient has been afebrile throughout her hospital stay. WBC has been stable at 13. Continue to monitor (4) Vaccine reaction Qualifiers: Encounter type: initial encounter Qualified Code(s): T50.Z95A - Adverse effect of other vaccines and biological substances, initial encounter Assessment/Plan: Continue to monitor - Current Meds Current Meds: Current Medications Generic Name Dose Route Start Last Admin Trade Name Freq PRN Reason Stop Dose Admin Acetaminophen 650 mg 07/16/20 01:37 07/18/20 11:45 Acetaminophen 325 Mg Tablet PO 650 mg Q4HR PRN Administration Pain 1 to 4 Carboxymethylcellulose 1 drops 07/16/20 13:21 07/18/20 01:37 Carboxymethylcellulose Ophth Drops EACHEYE 1 drops Q4H PRN Administration Dry Eye Sodium Chloride 1,000 mls @ 100 mls/hr 07/16/20 19:00 07/18/20 13:27 Normal Saline 0.9% IV 100 mls/hr .Q10H ROSALIO Infusion Ketorolac Tromethamine 30 mg 07/16/20 03:03 07/18/20 06:18 Ketorolac 30 Mg/Ml Vial IVP 07/21/20 03:02 30 mg Q6HR PRN Administration PAIN Lorazepam 0.5 mg 07/16/20 10:07 07/18/20 06:43 Lorazepam 2 Mg/Ml Vial IVP 0.5 mg Q6H PRN Administration Anxiety Pantoprazole Sodium 40 mg 07/17/20 07:00 07/18/20 06:24 Pantoprazole 40 Mg Vial IVP 40 mg QDAC ROSALIO Administration Sodium Chloride 10 ml 07/16/20 01:37 07/18/20 06:31 Sodium Chloride Flush 0.9% 10 Ml Syringe IVP 10 ml PRN PRN Administration NEEDED PER PROVIDER ORDERS Sodium Chloride 10 ml 07/16/20 09:00 07/18/20 16:21 Sodium Chloride Flush 0.9% 10 Ml Syringe IVP Not Given 0100,0900,1700 ROSALIO - Lab Result Fish Bone Diagrams: 07/18/20 05:33 07/18/20 05:33 Subjective - Subjective Patient Reports: Other (Patient continues to have intermittent episodes of generalized weakness and right facial droop. The frequency, duration and intensity has been increasingly shorter/ less. Earlier this morning she had several episodes in a short period of time. She was hypoxic to 88%) Objective Vital Signs: Vital Signs - 24 hr 07/17/20 07/18/20 07/18/20 20:30 00:39 06:01 Temperature 36.5 C 36.7 C 36.5 C Heart Rate [ 62 64 52 L Brachial] Heart Rate [ Monitoring electrodes] Heart Rate [ Sitting] Respiratory 18 16 16 Rate Blood Pressure 116/50 L 106/64 115/63 [Left Brachial artery] Blood Pressure [Sitting] O2 Saturation 98 98 96 07/18/20 07/18/20 07/18/20 07:55 08:15 08:25 Temperature 36.6 C Heart Rate [ 47 L Brachial] Heart Rate [ 50 L 47 L Monitoring electrodes] Heart Rate [ Sitting] Respiratory 18 22 20 Rate Blood Pressure 120/55 L 144/76 H 135/75 H [Left Brachial artery] Blood Pressure [Sitting] O2 Saturation 98 95 98 07/18/20 07/18/20 07/18/20 11:20 12:33 13:00 Temperature 36.5 C Heart Rate [ 67 Brachial] Heart Rate [ 48 L Monitoring electrodes] Heart Rate [ 53 L Sitting] Respiratory 20 20 Rate Blood Pressure 124/76 128/78 [Left Brachial artery] Blood Pressure 127/76 [Sitting] O2 Saturation 99 99 07/18/20 07/18/20 13:41 15:48 Temperature 36.4 C L Heart Rate [ 56 L Brachial] Heart Rate [ Monitoring electrodes] Heart Rate [ 53 L Sitting] Respiratory 18 Rate Blood Pressure 120/60 [Left Brachial artery] Blood Pressure 127/76 [Sitting] O2 Saturation 98 Oxygen O2 Source Room air I&O (Last 24 Hrs): Intake and Output Totals x24h 07/16/20 07/17/20 07/18/20 23:59 23:59 23:59 Intake Total 1060 3160.001 3470.000 Output Total 1825 800 Balance -765 3160.001 2670.000 General: Alert, Oriented x3, No acute distress HEENT: Atraumatic, PERRLA, EOMI Neck: Supple, No JVD Neuro: Alert, Non Focal, Other Cardiovascular: Regular rate, Normal S1, Normal S2 Respiratory: No respiratory distress, Breath sounds nml, Other (chest tenderness) Abdomen: Normal bowel sounds, Soft Extremities: No clubbing, No cyanosis, No edema, No tenderness/swelling Skin: No rashes, No breakdown, No significant lesion - Results Results: Laboratory Results WBC 13.0 x10^3/uL (4.8-10.8) H 07/18/20 05:33 RBC 4.46 10^6/uL (4.20-5.40) 07/18/20 05:33 Hgb 12.3 g/dL (12.0-16.0) 07/18/20 05:33 Hct 36.6 % (37.0-47.0) L 07/18/20 05:33 MCV 82.1 fL (81.0-99.0) 07/18/20 05:33 MCH 27.6 pg (27.0-31.0) 07/18/20 05:33 MCHC 33.6 g/dL (32.0-36.0) 07/18/20 05:33 RDW 14.5 % (12.0-15.0) 07/18/20 05:33 Plt Count 350 10^3/uL (130-450) 07/18/20 05:33 MPV 9.9 fL (7.9-10.8) 07/18/20 05:33 Neut # (Auto) 14.0 10^3/uL (1.5-6.6) H 07/15/20 18:31 Lymph # (Auto) 1.7 10^3/uL (1.5-3.5) 07/15/20 18:31 [place] # (Auto) 0.2 10^3/uL (0.0-1.0) 07/15/20 18:31 Eos # (Auto) 0.0 10^3/uL (0.0-0.7) 07/15/20 18:31 Baso # (Auto) 0.0 10^3/uL (0.0-0.1) 07/15/20 18:31 Absolute Nucleated RBC 0.00 x10^3/uL 07/15/20 18:31 Nucleated RBC % 0.0 /100WBC 07/15/20 18:31 Sodium 139 mmol/L (135-145) 07/18/20 05:33 Potassium 3.8 mmol/L (3.5-5.0) 07/18/20 05:33 Chloride 107 mmol/L (101-111) 07/18/20 05:33 Carbon Dioxide 22 mmol/L (21-32) 07/18/20 05:33 Anion Gap 10.0 (6-13) 07/18/20 05:33 BUN 12 mg/dL (6-20) 07/18/20 05:33 Creatinine 0.6 mg/dL (0.4-1.0) 07/18/20 05:33 Estimated GFR (MDRD) 112 (>89) 07/18/20 05:33 Glucose 121 mg/dL (70-100) H 07/18/20 05:33 Lactic Acid 0.6 mmol/L (0.5-2.2) 07/16/20 07:02 Calcium 8.2 mg/dL (8.5-10.3) L 07/18/20 05:33 Total Bilirubin 0.4 mg/dL (0.2-1.0) 07/15/20 18:31 AST 21 IU/L (10-42) 07/15/20 18:31 ALT 29 IU/L (10-60) 07/15/20 18:31 Alkaline Phosphatase 80 IU/L (42-121) 07/15/20 18:31 Troponin I High Sens 2.6 ng/L (2.3-14.8) 07/16/20 10:17 Total Protein 8.1 g/dL (6.7-8.2) 07/15/20 18:31 Albumin 4.1 g/dL (3.2-5.5) 07/15/20 18:31 Globulin 4.0 g/dL (2.1-4.2) 07/15/20 18:31 Albumin/Globulin Ratio 1.0 (1.0-2.2) 07/15/20 18:31 Lipase 38 U/L (22-51) 07/15/20 18:31 Prolactin 38.83 ng/mL 07/18/20 05:33 Nasal Adenovirus (PCR) NOT DETECTED 07/15/20 22:40 Nasal B. parapertussis DNA (PCR) NOT DETECTED 07/15/20 22:40 Nasal Coronavir 229E PCR NOT DETECTED 07/15/20 22:40 Nasal Coronavir HKU1 PCR NOT DETECTED 07/15/20 22:40 Nasal Coronavir NL63 PCR NOT DETECTED 07/15/20 22:40 Nasal Coronavir OC43 PCR NOT DETECTED 07/15/20 22:40 Nasal Enterovir/Rhinovir PCR NOT DETECTED 07/15/20 22:40 Nasal Influenza B PCR NOT DETECTED 07/15/20 22:40 Nasal Influenza A PCR NOT DETECTED 07/15/20 22:40 Nasal Parainfluen 1 PCR NOT DETECTED 07/15/20 22:40 Nasal Parainfluen 2 PCR NOT DETECTED 07/15/20 22:40 Nasal Parainfluen 3 PCR NOT DETECTED 07/15/20 22:40 Nasal Parainfluen 4 PCR NOT DETECTED 07/15/20 22:40 Nasal RSV (PCR) NOT DETECTED 07/15/20 22:40 Nasal B.pertussis DNA PCR NOT DETECTED 07/15/20 22:40 Nasal C.pneumoniae (PCR) NOT DETECTED 07/15/20 22:40 [place]en Human Metapneumo PCR NOT DETECTED 07/15/20 22:40 Nasal M.pneumoniae (PCR) NOT DETECTED 07/15/20 22:40 Nasal SARS-CoV-2 (PCR) NOT DETECTED 07/15/20 22:40 Sepsis Event Note (H) - Evaluation Current Stage of Sepsis: Ruled out ABX Reporting Has patient been on IV antibiotics over the past 48 hours?: No
[2020-07-19] MEDS: SODIUM CHLORIDE FLUSH 0.9% 10 ML SYRINGE IVP SCH ×2 (01:02→08:31)
[2020-07-19] MEDS: KETOROLAC 30 MG/ML VIAL IVP PRN (03:29)
[2020-07-19] MEDS: PANTOPRAZOLE 40 MG VIAL IVP SCH (05:57)
[2020-07-19] MEDS: SODIUM CHLORIDE FLUSH 0.9% 10 ML SYRINGE IVP PRN (05:58)
[2020-07-19] MEDS: SODIUM CHLORIDE 0.9% 1,000 ML IV SCH (08:31)
[2020-07-19 09:58] LABS: BASOPHILS # (AUTO) 0.1 10^3/uL (0.0-0.1); BASOPHILS % (AUTO) 0.4 %; EOSINOPHILS # (AUTO) 0.2 10^3/uL (0.0-0.7); EOSINOPHILS % (AUTO) 1.5 %; HCT - HEMATOCRIT 41.6 % (37.0-47.0); HGB - HEMOGLOBIN 13.6 g/dL (12.0-16.0); LYMPHOCYTES # (AUTO) 6.5 10^3/uL (1.5-3.5); MEAN CORPUSCULAR HEMOGLOBIN 27.1 pg (27.0-31.0); MEAN CORPUSCULAR HGB CONC 32.7 g/dL (32.0-36.0); MEAN PLATELET VOLUME 9.8 fL (7.9-10.8); MONOCYTES # (AUTO) 0.8 10^3/uL (0.0-1.0); MONOCYTES % (AUTO) 5.6 %; NEUTROPHILS # (AUTO) 5.9 10^3/uL (1.5-6.6); NEUTROPHILS % (AUTO) 44.1 %; PLT - PLATELET COUNT 367 10^3/uL (130-450); RED BLOOD COUNT 5.01 10^6/uL (4.20-5.40); RED CELL DISTRIBUTION WIDTH 14.4 % (12.0-15.0); WHITE BLOOD COUNT 13.5 x10^3/uL (4.8-10.8)
[2020-07-19 09:59] LABS: SLIDE REVIEW? Indicated
[2020-07-19 10:06] LABS: CALCIUM 8.2 mg/dL (8.5-10.3); CREATININE 0.8 mg/dL (0.4-1.0); POTASSIUM 2.9 mmol/L (3.5-5.0)
[2020-07-19 10:24] LABS: WBC MORPHOLOGY (MULTIPLE) 1+ REACTIVE LYMPHS (NORMAL)
[2020-07-19] MEDS ORDERED: POTASSIUM CHLORIDE 20 MEQ TABLET PO ONE (10:25)
--- NOTE | 2020-07-19 13:11 | DISCHARGE SUMMARY ---
"Discharge Summary Admit Date: 07/16/20 Discharge Date: 07/19/20 Discharging Provider: Donald Crabtree Primary Care Provider: Nimco Garcia Code Status: Attempt Resuscitation Condition at Discharge: Stable Discharge Disposition: 02 Transfer Acute Care Hosp Discharge Facility Name: [facility] - DIAGNOSES Admission Diagnoses: Weakness Thrasher's palsy Vaccine reaction Leukocytosis Elevated lactic acid level Discharge Diagnoses with Status of Each Condition: Right lower extremity weakness - ongoing. Right sided facial droop - resolved. Syncopal episodes - ongoing. Leukocytosis - stable Vaccine reaction - stable. - HPI History of Present Illness: H&P per Dr. Huang: Patient is a 35-year-old female with a past medical history of depression, previous allergic reaction to Cipro, and hydroxyzine and Prozac, obesity, who presented to the emergency room on the day of her second dose of Moderns Covid vaccine.Patient states that 10 minutes or so after the vaccine, she started to have generalized weakness. This led to assessments by nursing and the weakness somewhat improved but she was observed a bit longer after which the episode repeated to more severe diffuse weakness and generalized numbness prompting the RN at the vaccination center to consider allergic reaction and providing her with a dose of epinephrine. Patient was then transported by ambulance to the emergency department by which point symptoms had improved. Treatment deceived a dose of Decadron, epinephrine and Benadryl. She went home, took a nap, and after starting to feel better couple of hours later the symptoms returned this time more significant. She was so weak that she was unable to ambulate so called paramedics to bring her to the emergency department. In the ED, she was found to be very lethargic, weak, requiring assistance to even reposition in bed. However the symptoms were undulating, and at times she was able to with assistance ambulate to the bathroom. She was kept in the emergency department for about 6 hours during which time the symptoms waxed and waned but by the end of this course persisted for a couple of hours to the extent that discharge no longer seemed feasible.Patient underwent a CT scan of the head which was unremarkable as well as a chest x-ray as the patient would periodically complain of shortness of breath that would also resolve with time, and the chest x-ray was also unremarkable. Lab work was only remarkable for mild leukocytosis of 15,000, potassium of 3.2,Lactic acid of 2.5, and a blood sugar of 235. Upon my arrival to examine the patient for admission, patient was noted to have a very slight, but noticeable right-sided facial droop, asymmetry which the states was more pronounced than it was before. Other than this, she had no asymmetric weakness, no asymmetric numbness, or no other focal neurological deficit on a full neurological exam. At this point I discussed with the and the patient that it is unclear exactly what the etiology is but it appears to be a reaction to the vaccination though I could not absolutely rule out a stroke without access to an MRI on the weekend. Having discussed the options including the risks and benefits of continued observation in this hospital versus transfer, patient and requested consideration for transfer. This was discussed with Dr. Peguero in the emergency department who kindly offered an attempt to transfer the patient to facility with MRI and neurological consultation capabilities. However,[facility] in [place] and [facility] in [place] were both full with no capacity, and ultimately Dr. Freeman at [facility] was consulted who recommended continue supportive care in our facility and to use steroids for the treatment of what appears to be a severe case of Thrasher's palsy. He suggested that an MRI would not necessarily be helpful at this point nor impact our treatment options and therefore would be safe to defer.At this point, I excepted patient for hospital admission. - CONSULTS | PROCEDURES Consultations: PT - HOSPITAL COURSE Hospital Course: She was admitted for observation after there was concern she had an adverse reaction to her second dose of Moderna Covid vaccine. She initially had a right-sided facial droop and after consultation with neurology at [facility], it was felt this may have been Thrasher's palsy and they recommended observation with initiation of steroids. The following morning she had no evidence of facial d darell although still had slight decreased muscle strength in her right extremities. Shortly after, she had an episode where she was unresponsive briefly and is noted that she had a mild right-sided facial droop at that time. She could not move any of her extremities and this resolved after a few minutes. Her vital signs were stable during this. She did complain of chest pain prior to this and she had an EKG which revealed a sinus rhythm without evidence of ischemia and a normal troponin. She continued to be observed and remained on steroids. The following day, neurology at [place] was contacted to discuss her case as she still has these episodes of intermittent unresponsive episodes with a right facial droop. There was low suspicion for stroke or Guillain-Dc and although it was felt that an MRI would likely not be of much yield, it was obtained the following day which was unremarkable. He needs to have these episodes that would last a few minutes throughout the day and once again, the daytime hospitalist reached out to the patient's own neurologist, Dr. Garcia Sherman at [place]. Once again, it was felt that it was unlikely that she had Thrasher's palsy, Guillain-Dc, stroke or seizure. There was concern that this could be psychosomatic such as somatization disorder. It was felt that transfer would likely not be of much benefit at this time and that she could be discharged home if she was able to ambulate independently and to follow-up on an outpatient basis. He also recommend discontinuing steroids and this was done. Despite observing her for the 24 hours, she continued to have these intermittent episodes and she also complained of worsening right lower extremity weakness. Although subtle, it was present. Her potassium was 2.9 this morning and this w as replaced orally. It was felt that this was not contributing to her presentation as she had episodes of these unresponsive episodes the past 2 days while her potassium was normal. During one of the episodes, her heart rate was in the low 50s. Unfortunately, she was not monitored on telemetry during this hospitalization. An echo was planned for today but was not obtained prior to discharge. Her white count has remained stable and slowly improving each day. It was felt this may have been related to steroids. After further discussion with the patient and her spouse, they preferred transfer to a higher level of care for further evaluation given she continued to have these episodes and she has the worsening right lower extremity weakness. I did contact [facility] and spoke with Dr. Bergeron of the neurology service. She spoke with her neurology team as well as the Medicine service. I then spoke with the medicine service and the patient was graciously accepted in transfer by the Medicine service. - ALLERGIES Allergies/Adverse Reactions: Allergies Allergy/AdvReac Type Severity Reaction Status Date / Time ciprofloxacin Allergy Anaphylaxis Verified 07/15/20 18:18 fluoxetine [From Prozac] Allergy Edema Verified 07/15/20 18:18 hydralazine Allergy Edema Verified 07/15/20 18:18 shrimp AdvReac Edema Verified 07/15/20 18:18 - MEDICATIONS Home Medications: Ambulatory Orders Medication Instructions Recorded Confirmed No Known Home Medications 06/15/20 07/15/20 - PHYSICAL EXAM AT DISCHARGE General Appearance: positive: No acute distress, Alert Eyes Bilateral: positive: Normal inspection, PERRL, EOMI, Conjunctivae nml ENT: positive: ENT inspection nml Neck: positive: Nml inspection Respiratory: positive: No respiratory distress. negative: Wheezes, Rales Cardiovascular: positive: Regular rate & rhythm, No murmur. negative: Tachycardia Abdomen: positive: Non-tender, No distention. negative: Tenderness Skin: positive: Warm, Dry Extremities: positive: No pedal edema Neurologic/Psychiatric: positive: Other (Diminished sensation over the lateral aspect of the right upper thigh compared to the left. 4 out of 5 motor strength in the right lower extremity. She is hyperreflexic in the bilateral lower extremities. Negative Babinski.). negative: Disoriented to person, Disoriented to place, Disoriented to time, Facial droop, Slurred/abnml speech Physical Exam Other/Comments: Vital Signs - 24 hr 07/18/20 07/18/20 07/18/20 20:04 20:05 20:45 Temperature 36.6 C 36.6 C Heart Rate [ 60 69 72 Brachial] Heart Rate [ Monitoring electrodes] Respiratory 24 18 19 Rate Blood Pressure 115/64 142/76 H 139/62 H [Left Brachial artery] O2 Saturation 97 100 100 07/19/20 07/19/20 07/19/20 00:00 03:11 03:16 Temperature 36.9 C Heart Rate [ 60 70 72 Brachial] Heart Rate [ Monitoring electrodes] Respiratory 16 14 17 Rate Blood Pressure 116/54 L 119/65 113/69 [Left Brachial artery] O2 Saturation 97 97 96 07/19/20 07/19/20 07/19/20 05:59 06:07 08:00 Temperature 36.4 C L Heart Rate [ 63 Brachial] Heart Rate [ 69 73 Monitoring electrodes] Respiratory 16 16 14 Rate Blood Pressure 116/70 120/69 113/75 [Left Brachial artery] O2 Saturation 96 95 100 07/19/20 07/19/20 07/19/20 11:19 11:29 15:00 Temperature 36.6 C Heart Rate [ Brachial] Heart Rate [ 69 63 75 Monitoring electrodes] Respiratory 16 16 Rate Blood Pressure 128/71 126/70 117/79 [Left Brachial artery] O2 Saturation 96 98 99 Oxygen O2 Source Room air - LABS Result Diagrams: 07/19/20 09:47 07/19/20 09:47 Other Lab Results: Laboratory Tests 07/15/20 07/15/20 07/15/20 18:31 18:31 18:31 WBC 15.9 H RBC 5.23 Hgb 14.0 Hct 42.7 MCV 81.6 MCH 26.8 L MCHC 32.8 RDW 14.4 Plt Count 434 MPV 10.0 Neut # (Auto) 14.0 H Lymph # (Auto) 1.7 [place] # (Auto) 0.2 Eos # (Auto) 0.0 Baso # (Auto) 0.0 Absolute Nucleated RBC 0.00 Nucleated RBC % 0.0 Manual Slide Review WBC Morphology Sodium 139 Potassium 3.2 L Chloride 107 Carbon Dioxide 21 Anion Gap 11.0 BUN 13 Creatinine 0.8 Estimated GFR (MDRD) 81 L Glucose 235 H Lactic Acid 2.5 H Calcium 8.9 Magnesium Total Bilirubin 0.4 AST 21 ALT 29 Alkaline Phosphatase 80 Troponin I High Sens Total Protein 8.1 Albumin 4.1 Globulin 4.0 Albumin/Globulin Ratio 1.0 Lipase 38 TSH Prolactin Nasal Adenovirus (PCR) Nasal B. parapertussis DNA (PCR) Nasal Coronavir 229E PCR Nasal Coronavir HKU1 PCR Nasal Coronavir NL63 PCR Nasal Coronavir OC43 PCR Nasal Enterovir/Rhinovir PCR Nasal Influenza B PCR Nasal Influenza A PCR Nasal Parainfluen 1 PCR Nasal Parainfluen 2 PCR Nasal Parainfluen 3 PCR Nasal Parainfluen 4 PCR Nasal RSV (PCR) Nasal B.pertussis DNA PCR Nasal C.pneumoniae (PCR) Ronen Human Metapneumo PCR Nasal M.pneumoniae (PCR) Nasal SARS-CoV-2 (PCR) 07/15/20 07/16/20 07/16/20 22:40 05:09 05:09 WBC 13.8 H RBC 4.57 Hgb 12.3 Hct 37.3 MCV 81.6 MCH 26.9 L MCHC 33.0 RDW 14.4 Plt Count 363 MPV 9.8 Neut # (Auto) Lymph # (Auto) [place] # (Auto) Eos # (Auto) Baso # (Auto) Absolute Nucleated RBC Nucleated RBC % Manual Slide Review WBC Morphology Sodium 138 Potassium 3.7 Chloride 111 Carbon Dioxide 20 L Anion Gap 7.0 BUN 10 Creatinine 0.6 Estimated GFR (MDRD) 112 Glucose 115 H Lactic Acid Calcium 8.2 L Magnesium Total Bilirubin AST ALT Alkaline Phosphatase Troponin I High Sens Total Protein Albumin Globulin Albumin/Globulin Ratio Lipase TSH Prolactin Nasal Adenovirus (PCR) NOT DETECTED Nasal B. parapertussis DNA (PCR) NOT DETECTED Nasal Coronavir 229E PCR NOT DETECTED Nasal Coronavir HKU1 PCR NOT DETECTED Nasal Coronavir NL63 PCR NOT DETECTED Nasal Coronavir OC43 PCR NOT DETECTED Nasal Enterovir/Rhinovir PCR NOT DETECTED Nasal Influenza B PCR NOT DETECTED Nasal Influenza A PCR NOT DETECTED Nasal Parainfluen 1 PCR NOT DETECTED Nasal Parainfluen 2 PCR NOT DETECTED Nasal Parainfluen 3 PCR NOT DETECTED Nasal Parainfluen 4 PCR NOT DETECTED Nasal RSV (PCR) NOT DETECTED Nasal B.pertussis DNA PCR NOT DETECTED Nasal C.pneumoniae (PCR) NOT DETECTED Ronen Human Metapneumo PCR NOT DETECTED Nasal M.pneumoniae (PCR) NOT DETECTED Nasal SARS-CoV-2 (PCR) NOT DETECTED 07/16/20 07/16/20 07/17/20 07:02 10:17 04:56 WBC 13.7 H RBC 4.58 Hgb 12.2 Hct 38.4 MCV 83.8 MCH 26.6 L MCHC 31.8 L RDW 14.5 Plt Count 362 MPV 10.1 Neut # (Auto) Lymph # (Auto) [place] # (Auto) Eos # (Auto) Baso # (Auto) Absolute Nucleated RBC Nucleated RBC % Manual Slide Review WBC Morphology Sodium Potassium Chloride Carbon Dioxide Anion Gap BUN Creatinine Estimated GFR (MDRD) Glucose Lactic Acid 0.6 Calcium Magnesium Total Bilirubin AST ALT Alkaline Phosphatase Troponin I High Sens 2.6 Total Protein Albumin Globulin Albumin/Globulin Ratio Lipase TSH Prolactin Nasal Adenovirus (PCR) Nasal B. parapertussis DNA (PCR) Nasal Coronavir 229E PCR Nasal Coronavir HKU1 PCR Nasal Coronavir NL63 PCR Nasal Coronavir OC43 PCR Nasal Enterovir/Rhinovir PCR Nasal Influenza B PCR Nasal Influenza A PCR Nasal Parainfluen 1 PCR Nasal Parainfluen 2 PCR Nasal Parainfluen 3 PCR Nasal Parainfluen 4 PCR Nasal RSV (PCR) Nasal B.pertussis DNA PCR Nasal C.pneumoniae (PCR) Ronen Human Metapneumo PCR Nasal M.pneumoniae (PCR) Nasal SARS-CoV-2 (PCR) 07/17/20 07/18/20 07/18/20 04:56 05:33 05:33 WBC 13.0 H RBC 4.46 Hgb 12.3 Hct 36.6 L MCV 82.1 MCH 27.6 MCHC 33.6 RDW 14.5 Plt Count 350 MPV 9.9 Neut # (Auto) Lymph # (Auto) [place] # (Auto) Eos # (Auto) Baso # (Auto) Absolute Nucleated RBC Nucleated RBC % Manual Slide Review WBC Morphology Sodium 139 139 Potassium 3.6 3.8 Chloride 109 107 Carbon Dioxide 21 22 Anion Gap 9.0 10.0 BUN 13 12 Creatinine 0.6 0.6 Estimated GFR (MDRD) 112 112 Glucose 133 H 121 H Lactic Acid Calcium 8.3 L 8.2 L Magnesium Total Bilirubin AST ALT Alkaline Phosphatase Troponin I High Sens Total Protein Albumin Globulin Albumin/Globulin Ratio Lipase TSH Prolactin Nasal Adenovirus (PCR) Nasal B. parapertussis DNA (PCR) Nasal Coronavir 229E PCR Nasal Coronavir HKU1 PCR Nasal Coronavir NL63 PCR Nasal Coronavir OC43 PCR Nasal Enterovir/Rhinovir PCR Nasal Influenza B PCR Nasal Influenza A PCR Nasal Parainfluen 1 PCR Nasal Parainfluen 2 PCR Nasal Parainfluen 3 PCR Nasal Parainfluen 4 PCR Nasal RSV (PCR) Nasal B.pertussis DNA PCR Nasal C.pneumoniae (PCR) Ronen Human Metapneumo PCR Nasal M.pneumoniae (PCR) Nasal SARS-CoV-2 (PCR) 07/18/20 07/19/20 07/19/20 05:33 09:47 09:47 WBC 13.5 H RBC 5.01 Hgb 13.6 Hct 41.6 MCV 83.0 MCH 27.1 MCHC 32.7 RDW 14.4 Plt Count 367 MPV 9.8 Neut # (Auto) 5.9 Lymph # (Auto) 6.5 H [place] # (Auto) 0.8 Eos # (Auto) 0.2 Baso # (Auto) 0.1 Absolute Nucleated RBC 0.00 Nucleated RBC % 0.0 Manual Slide Review Indicated WBC Morphology 1+ REACTIVE LYMPHS Sodium Potassium Chloride Carbon Dioxide Anion Gap BUN Creatinine Estimated GFR (MDRD) Glucose Lactic Acid Calcium Magnesium Total Bilirubin AST ALT Alkaline Phosphatase Troponin I High Sens Total Protein Albumin Globulin Albumin/Globulin Ratio Lipase TSH 4.14 Prolactin 38.83 Nasal Adenovirus (PCR) Nasal B. parapertussis DNA (PCR) Nasal Coronavir 229E PCR Nasal Coronavir HKU1 PCR Nasal Coronavir NL63 PCR Nasal Coronavir OC43 PCR Nasal Enterovir/Rhinovir PCR Nasal Influenza B PCR Nasal Influenza A PCR Nasal Parainfluen 1 PCR Nasal Parainfluen 2 PCR Nasal Parainfluen 3 PCR Nasal Parainfluen 4 PCR Nasal RSV (PCR) Nasal B.pertussis DNA PCR Nasal C.pneumoniae (PCR) Ronen Human Metapneumo PCR Nasal M.pneumoniae (PCR) Nasal SARS-CoV-2 (PCR) 07/19/20 07/19/20 09:47 09:47 WBC RBC Hgb Hct MCV MCH MCHC RDW Plt Count MPV Neut # (Auto) Lymph # (Auto) [place] # (Auto) Eos # (Auto) Baso # (Auto) Absolute Nucleated RBC Nucleated RBC % Manual Slide Review WBC Morphology Sodium 141 Potassium 2.9 L Chloride 105 Carbon Dioxide 28 Anion Gap 8.0 BUN 11 Creatinine 0.8 Estimated GFR (MDRD) 81 L Glucose 98 Lactic Acid Calcium 8.2 L Magnesium 2.1 Total Bilirubin AST ALT Alkaline Phosphatase Troponin I High Sens Total Protein Albumin Globulin Albumin/Globulin Ratio Lipase TSH Prolactin Nasal Adenovirus (PCR) Nasal B. parapertussis DNA (PCR) Nasal Coronavir 229E PCR Nasal Coronavir HKU1 PCR Nasal Coronavir NL63 PCR Nasal Coronavir OC43 PCR Nasal Enterovir/Rhinovir PCR Nasal Influenza B PCR Nasal Influenza A PCR Nasal Parainfluen 1 PCR Nasal Parainfluen 2 PCR Nasal Parainfluen 3 PCR Nasal Parainfluen 4 PCR Nasal RSV (PCR) Nasal B.pertussis DNA PCR Nasal C.pneumoniae (PCR) Ronen Human Metapneumo PCR Nasal M.pneumoniae (PCR) Nasal SARS-CoV-2 (PCR) - DIAGNOSTIC IMAGING Diagnostic Imaging Results: Final report reviewed Diagnostic Imaging Results Comments: CT of the head on July 15 revealed no intracranial abnormalities. Brain MRI without contrast performed July 18 revealed no acute abnormalities. - SEPSIS Current Stage of Sepsis: Ruled out - TIME SPENT Time Spent in Discharge (Minutes): 42"
[2020-07-19 15:16] VITALS: BP 117/79
== END 2020-07-19 15:08 | disposition short-term general hospital (02) ==
LOC: EDUNIT# → SUPCPDRO 17:58 → ED 17:58 → MS2 07-16 01:37
PROVIDERS: ADMIT Family Medicine Sports Medicine; ATTEND Internal Medicine
DX: R53.1 Weakness (principal); T50.B95A Adverse effect of other viral vaccines, initial encounter; R29.810 Facial weakness; R55 Syncope and collapse; D72.829 Elevated white blood cell count, unspecified; F32.9 Major depressive disorder, single episode, unspecified; E66.9 Obesity, unspecified; R20.0 Anesthesia of skin; R07.9 Chest pain, unspecified; Z20.822 Contact with and (suspected) exposure to COVID-19; Z68.38 Body mass index [BMI] 38.0-38.9, adult; Z88.1 Allergy status to other antibiotic agents; Z88.8 Allergy status to other drugs, medicaments and biological substances; R53.83 Other fatigue; F41.9 Anxiety disorder, unspecified; R74.02 Elevation of levels of lactic acid dehydrogenase [LDH]; T78.49XA Other allergy, initial encounter; R42 Dizziness and giddiness; R06.00 Dyspnea, unspecified; Y84.8 Other medical procedures as the cause of abnormal reaction of the patient, or of later complication, without mention of misadventure at the time of the procedure
CPT/HCPCS: 0202U; 36415; 70450; 70551; 80048; 80053; 83605; 83690; 83735; 84146; 84443; 84484; 85025; 85027; 93005; 96365; 96366; 96374; 96375; 96376; 97110; 97116; 97162; 97165; 97530; 99284; 99285; A9270; G0378; J1200; J2060; J7512

== ENCOUNTER 2020-08-05 18:44 | Outpatient (CLI) | payer OTHER ==
--- NOTE | 2020-08-07 13:50 | Ultrasound Report ---
PROCEDURE: Pelvic w/Transvaginal INDICATIONS: MENORRHAGIS, UTERUS FIBROIDS TECHNIQUE: Real-time scanning was performed of the pelvic organs, with image documentation. Additional endovagi nal scanning was necessary due to incomplete visualization of the adnexal and endometrial structures by transabdominal scanning. COMPARISON: Prior ultrasound, 08/21/2019 Correlation is made with prior abdomen and pelvis CT, 021 FINDINGS: No pathologic free abdominal or pelvic fluid. Uterus: Uterus is near the upper limits of normal in size at 7.1 x 5.8 x 6 cm. The endometrium zoraida ures 16 mm in combined thickness, which is near the upper limits of normal. A subserosal fibroid is seen near the uterine fundus that measures 2.9 x 2.0 x 2.4 cm. Ovaries: The right ovary measures 2.6 x 1.7 x 2.1 cm and the left ovary measures 4.2 x 2.3 x 3.3 cm and demonstrates multiple cysts, the largest measuring up to 2.1 cm. A left ovarian cyst is seen and demonstrates mild complexity, with layering debris, measuring 1 cm No significant ovarian abnormaliti es are seen. There are less than 12 follicles seen on each side. No adnexal masses are seen. IMPRESSION: Left ovarian cysts are seen, including a mildly complex 1 cm cyst. There is a 2.9 cm subserosal fibroid seen near the right uterine fundus. The uterine size near the upper limits of normal. The endometrial stripe thickness is near the upper limits of normal. Reviewed by: Manuel Rust MD on 08/07/2020 12:49 PM [facility] Approved by: Manuel Rust MD on 08/07/2020 12:49 PM [facility] Station ID: [id number]
== END 2020-08-05 18:45 | disposition home or self-care (01) ==
LOC: DI 18:44
PROVIDERS: ATTEND Obstetrics & Gynecology
DX: N83.292 Other ovarian cyst, left side (principal); D25.2 Subserosal leiomyoma of uterus

== ENCOUNTER 2020-09-26 12:02 | Outpatient (CLI) | payer OTHER ==
[2020-09-26 12:14] LABS: BASOPHILS % (AUTO) 0.4 %; EOSINOPHILS # (AUTO) 0.2 10^3/uL (0.0-0.7); EOSINOPHILS % (AUTO) 2.2 %; HCT - HEMATOCRIT 42.6 % (37.0-47.0); LYMPHOCYTES # (AUTO) 3.8 10^3/uL (1.5-3.5); MEAN CORPUSCULAR HEMOGLOBIN 26.8 pg (27.0-31.0); MEAN CORPUSCULAR HGB CONC 32.9 g/dL (32.0-36.0); MEAN CORPUSCULAR VOLUME 81.6 fL (81.0-99.0); MEAN PLATELET VOLUME 9.1 fL (7.9-10.8); MONOCYTES # (AUTO) 0.4 10^3/uL (0.0-1.0); MONOCYTES % (AUTO) 4.9 %; NEUTROPHILS # (AUTO) 4.4 10^3/uL (1.5-6.6); NEUTROPHILS % (AUTO) 49.3 %; PLT - PLATELET COUNT 387 10^3/uL (130-450); RED BLOOD COUNT 5.22 10^6/uL (4.20-5.40); RED CELL DISTRIBUTION WIDTH 13.6 % (12.0-15.0); WHITE BLOOD COUNT 8.9 x10^3/uL (4.8-10.8)
[2020-09-26 12:19] LABS: HCG UR QUAL NEGATIVE
== END 2020-09-26 12:03 | disposition home or self-care (01) ==
LOC: LAB 12:02
PROVIDERS: ATTEND Obstetrics & Gynecology
DX: Z01.812 Encounter for preprocedural laboratory examination (principal); R93.89 Abnormal findings on diagnostic imaging of other specified body structures; N84.0 Polyp of corpus uteri; N92.0 Excessive and frequent menstruation with regular cycle; N90.89 Other specified noninflammatory disorders of vulva and perineum
CPT/HCPCS: 36415; 81025; 82306; 84403; 85025

== ENCOUNTER 2020-09-27 07:29 | Day surgery (SDC) | payer OTHER ==
[~2020-09-27 07:29] MED LIST: ACETAMINOPHEN 1,000 MG/100 ML 100 ML IV ONE; CELECOXIB 100 MG CAPSULE PO ONE; GABAPENTIN 400 MG CAPSULE ONE
[2020-09-27] MEDS ORDERED: LACTATED RINGERS 1,000 ML IV ONE ×2 (07:52→09:52)
[2020-09-27] MEDS ORDERED: MIDAZOLAM 2 MG/2 ML VIAL ONE (07:55)
[2020-09-27] MEDS ORDERED: fentaNYL 100 MCG/2 ML VIAL ONE (07:55)
[2020-09-27] MEDS ORDERED: LIDOCAINE MPF 2%-EPI 1:200000 20 ML VIAL ONE (08:04)
[2020-09-27] MEDS ORDERED: BUPIVACAINE 0.25% PF 30 ML VIAL ONE (08:04)
[2020-09-27] MEDS ORDERED: LIDOCAINE MPF 2%-EPI 1:200000 10 ML VIAL SUBQ ONE (08:05)
[2020-09-27] MEDS ORDERED: BUPIVACAINE 0.5% PF 30 ML VIAL ONE (08:05)
[2020-09-27] MEDS ORDERED: LIDOCAINE 2%-EPI 1:100000 20 ML MDV SUBQ ONE (08:06)
--- NOTE | 2020-09-27 08:20 | ANESTHESIA ---
Pre-Anesthesia VS, & Labs - Diagnosis Thickened endometrium, polyp, menorrhagia, vulvar lesion - Procedure Myosure hyster scopy, D&C, polypectomy and excision of vulvar lesion Vital Signs: Temp Pulse Resp BP Pulse Ox 36 C L 70 16 124/81 H 100 09/27/20 07:54 09/27/20 07:54 09/27/20 07:54 09/27/20 07:54 09/27/20 07:54 Height: 5 ft 6 in Weight (kg): 105.3 kg Body Mass Index: 37.4 BMI Classification: Obese - NPO >8 hours - Is Patient ?: No Home Medications and Allergies Home Medications: Ambulatory Orders Omeprazole [PriLOSEC] 20 mg PO DAILY 09/22/20 Omeprazole [PriLOSEC] 20 mg PO DAILY 09/22/20 Allergies/Adverse Reactions: Allergies Allergy/AdvReac Type Severity Reaction Status Date / Time ciprofloxacin Allergy Anaphylaxis Verified 07/15/20 18:18 COVID-19 vaccine, mRNA, Allergy stroke Verified 09/22/20 14:47 [id number], like symptoms fluoxetine [From Prozac] Allergy Edema Verified 07/15/20 18:18 hydroxyzine Allergy Edema Verified 09/22/20 14:21 shrimp AdvReac Edema Verified 07/15/20 18:18 Anes History & Medical History - Anesthetic History Anesthesia Complications: reports: No previous complications - Medical History Cardiovascular: reports: None Pulmonary: reports: Sleep apnea, CPAP use Gastrointestinal: reports: GERD Urinary: reports: None Neuro: reports: Migraines Musculoskeletal: reports: None Endocrine/Autoimmune: reports: None Blood Disorders: reports: None Skin: reports: None Smoking Status: Never smoker Psychosocial: reports: No issues indicated History of Cancer?: No - Surgical History General: reports: Other Gynecologic: reports: Other Orthopedic: reports: Arthroscopic surgery, Other Exam General: Alert, Oriented x3, Cooperative, No acute distress Dental: WNL Mouth Openin Fingerbreadth Neck Mobility: Normal Mallampati classification: II Thyromental Distance: 4-6 cm Respiratory: Lungs clear, Normal breath sounds, No respiratory distress, No accessory muscle use Cardiovascular: Regular rate, Normal S1, Normal S2, No murmurs Mental/Cognitive Status: Alert/Oriented X3, Normal for patient Plan Anesthesia Type: General Consent for Procedure(s) Verified and Reviewed: Yes Code Status: Attempt Resuscitation ASA classification: 2-Mild systemic disease Is this case an emergency?: No
[2020-09-27] MEDS ORDERED: DEXAMETHASONE 4 MG/ML VIAL ONE (08:42)
[2020-09-27] MEDS ORDERED: ONDANSETRON 4 MG/2 ML VIAL ONE (08:42)
[2020-09-27] MEDS ORDERED: SILVER NITRATE APPLICATOR TOP ONE (08:51)
[2020-09-27] MEDS ORDERED: BUPIVACAINE 0.5% PF 30 ML VIAL INFIL ONE (09:25)
--- NOTE | 2020-09-27 10:01 | OPERATIVE REPORT ---
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 Findings: Normal appearing uterine cavity with bilateral tubal ostia noted. No other structural abnormalities. 3-4 cm soft raised vulvar lesion with comprised of fatty tissue Complications: None - Other Other Information/Narrative: Risks benefits and alternatives to the procedure were reviewed. Consent was again confirmed. Patient was taken to the operating room where she underwent general anesthesia. She was positioned in dorsolithotomy position with legs resting in yellowfin stirrups. She was prepped and draped in the usual sterile fashion. Cefazolin 2g IV was administered prior to the procedure. Preoperative checklist was performed. Exam under anesthesia was performed. Speculum was placed in the vagina and the cervix was visualized. Single-tooth tenaculum was placed at the anterior cerv ical lip. Paracervical block was administered using a total of 20 cc of was injected at the 4:00 and 8:00 positions lateral to the portio of the cervix. The cervical os was serially dilated with Hegar dilators to accommodate the caliber of the diagnostic hysteroscope. The hysteroscope was inserted and findings were noted as above. Hysteroscope was removed. Sharp curettage D&C was performed with sharp curettage. The hysteroscope was re-inserted, uterine cavity was surveyed, and then the hysteroscope was removed. All instruments were removed from the uterus. Tenaculum was removed. Tenaculum sites were noted to be hemostatic. All instruments were removed from the vagina. Fluid deficit: 65 mL Attention was then turned to the vulvar portion of the procedure. A total of 10 cc of 2% lidocaine mixed with 0.5% bupivicaine with epinephrine was injected under the lesion and along the incision line. A scalpel was used to make an incision vertically along the lesion. The edges of the skin were dissected back from the lesion using a combination of blunt and sharp dissection using the scalpel and Metzenbaum scissors. The lesion was removed. Appearance was consistent with lipoma. The wound bed was copiously irrigated iwht sterile saline and cautery was used to control any light bleeding. The subcutaneous tissue was closed with a series of figure of 8 sutures using 3-0 Vicryl. The incision was closed with running subcuticular sutures using 4-0 Monocryl. Dermabond was placed over the incision line. EBL was minimal. Procedure was well-tolerated without complication.
[2020-09-27] MEDS ORDERED: ePHEDrine 50 MG/ML VIAL IVP PRN (10:28)
[2020-09-27] MEDS ORDERED: fentaNYL 100 MCG/2 ML VIAL IVP PRN (10:28)
[2020-09-27] MEDS ORDERED: MORPHINE 2 MG/ML CARPUJECT IVP PRN (10:28)
[2020-09-27] MEDS ORDERED: ATROPINE ABBOJECT 1 MG/10 ML SYRINGE IVP PRN (10:28)
[2020-09-27] MEDS ORDERED: HYDROmorphone 0.5 MG/0.5 ML SYRINGE IVP PRN (10:28)
[2020-09-27] MEDS ORDERED: METOCLOPRAMIDE 10 MG/2 ML VIAL IVP PRN (10:28)
[2020-09-27] MEDS ORDERED: NALOXONE 0.4 MG/ML VIAL IVP PRN (10:28)
[2020-09-27] MEDS ORDERED: ONDANSETRON 4 MG/2 ML VIAL IVP PRN (10:28)
[2020-09-27] MEDS ORDERED: LACTATED RINGERS 1,000 ML IV SCH (11:00)
[2020-09-27 11:25] VITALS: BP 125/75
--- NOTE | 2020-09-27 12:13 | ANESTHESIA POST OP EVALUATION ---
Anesthesia Post Eval - Post Anesthesia Eval Vitals: Last Vital Signs Temp 36.0 C L 09/27/20 11:24 Pulse 55 L 09/27/20 11:24 Resp 16 09/27/20 11:24 BP 125/75 09/27/20 11:24 Pulse Ox 100 09/27/20 11:24 CV Function Including HR & BP: Stable Pain Control: Satisfactory Nausea & Vomiting: Negative Mental Status: Baseline Respiratory Status: Airway Patent Hydration Status: Satisfactory Anesthesia Complications: None
== END 2020-09-27 07:30 | disposition home or self-care (01) ==
LOC: SDS 07:29
PROVIDERS: ATTEND Obstetrics & Gynecology
PROC: 0UDB7ZX Extraction of Endometrium, Via Natural or Artificial Opening, Diagnostic (ICD-10-PCS; principal; 2020-09-27 08:30)
PROC: 0UBMXZZ Excision of Vulva, External Approach (ICD-10-PCS; 2020-09-27 08:30)
DX: N93.8 Other specified abnormal uterine and vaginal bleeding (principal); R93.89 Abnormal findings on diagnostic imaging of other specified body structures; N90.89 Other specified noninflammatory disorders of vulva and perineum; N92.0 Excessive and frequent menstruation with regular cycle; E66.9 Obesity, unspecified; Z68.37 Body mass index [BMI] 37.0-37.9, adult; G47.30 Sleep apnea, unspecified
CPT/HCPCS: 11424; 58558; A9270; J0131; J7120; 88304; 88305